=== PATIENT | male | born 1935 | race Two or more races ===

== ENCOUNTER 2020-11-14 11:58 | Inpatient (IN) | payer MEDICARE ==
[~2020-11-14] VITALS: Ht 170.2 cm; Wt 73.9 kg
[2020-11-14 18:08] VITALS: BP 126/66
--- NOTE | 2020-11-14 18:22 | HP ---
ADMIT DATE: 11/14/2020 ATTENDING PHYSICIAN: Dr. Doyle. HISTORY OF PRESENT ILLNESS: We are asked to see this patient for admission to the medical side prior to going to the Senior [facility]. The patient is an 85-year-old gentleman, normally has some appointments at the [facility] in [place]. He is currently in a fpc in [place], [place]. He is demented. He has been having visual hallucinations, seeing faces, agitated, insomnia up in the middle of night, attempting to leave home at times, has underlying dementia with Parkinson's disease. He is admitted to the [facility] Unit for further evaluation. PAST MEDICAL HISTORY: Significant for Parkinson's disease, history of colon cancer resection, hypertension, chronic kidney disease stage 3, gout, benign prostatic hypertrophy, gastroesophageal reflux disease and chronic bronchitis. SOCIAL HISTORY: He had been a smoker in the past. No drinking history. He is retired as a desk job as a fleet manager. ALLERGIES: HE HAS ALLERGIES TO FENTANYL, PERCOCET, METOCLOPRAMIDE AND REQUIP. Exact reactions unclear. He had a second COVID vaccine in October. Family has applied for Medicaid. CURRENT MEDICINES: Include allopurinol, amlodipine, Eliquis 2.5 b.i.d., vitamin D3, Aricept, famotidine, finasteride, Lasix, metoprolol, multivitamin, Flomax and aspirin, p.r.n. Tylenol. FAMILY HISTORY: Unobtainable. REVIEW OF SYSTEMS: Difficult to obtain due to the patient's obtundation. PHYSICAL EXAMINATION: GENERAL: When I saw him, this is a pleasant gentleman that is arousable. He is less obtunded. INITIAL VITAL SIGNS: Showed a blood pressure on the database. He is afebrile. HEENT: Head is without trauma. Pupils are reactive. Sclerae are nonicteric. The oropharynx is clear. NECK: Supple, no bruits. LUNGS: Good breath sounds. CARDIOVASCULAR: Showed regular heart tones. No gallops. ABDOMEN: Soft, no guarding or rebound tenderness. EXTREMITIES: Without edema. NEUROLOGIC: Pleasantly confused, but arousable. Speech is fluent. SKIN: Otherwise warm and dry. We could not assess a full neurologic exam and gait assessment due to the patient's dementia. LABORATORY STUDIES: CBC, chemistry panel and coronavirus swab are pending. ASSESSMENT: 1. An 85-year-old gentleman from [place], [place] slated to go to the Senior Behavior Unit for hallucinations. 2. Underlying dementia. 3. Parkinson's disease. 4. Essential hypertension. 5. Chronic kidney disease. 6. Gout. 7. Gastroesophageal reflux disease. 8. History of colon cancer. PLAN: 1. Admit to the medical unit. 2. Home meds have been reviewed and will be continued. 3. Await laboratory studies and COVID swab. When his COVID swab is available and negative, he can go upstairs to the Senior Behavior Unit. SHAHEEN DOYLE MD DR: ROSS/cristina JOB#: [id number] / [id number] KASSANDRA Bonilla MD
[2020-11-14 18:52] LABS: BASO % 0 % (0-3); EOS # 0.2 x10^3/uL (0.0-0.7); EOS % 4 % (0-3); HEMATOCRIT 31.4 % (39.0-53.0); LYMPH # 0.8 x10^3/uL (1.0-4.8); LYMPH % 17 % (24-48); MEAN CORPUSCULAR HEMOGLOBIN 28 pg (25-35); MEAN CORPUSCULAR HGB CONC 32 g/dL (31-37); MEAN CORPUSCULAR VOLUME 89 fL (79-100); MONO # 0.3 x10^3/uL (0.0-1.1); MONO % 6 % (0-9); NEUT # 3.6 x10^3uL (1.8-7.7); NEUT % 73 % (31-73); PLATELET COUNT 134 x10^3/uL (140-400); RED BLOOD COUNT 3.52 x10^6/uL (4.30-5.70); RED CELL DISTRIBUTION WIDTH 15.5 % (11.5-14.5); WHITE BLOOD COUNT 4.9 x10^3/uL (4.0-11.0)
[2020-11-14 19:06] LABS: CALCIUM 8.3 mg/dL (8.5-10.1); GFR 31.9; POTASSIUM 3.7 mmol/L (3.5-5.1); TOTAL BILIRUBIN 0.4 mg/dL (0.2-1.0); TOTAL PROTEIN 6.1 g/dL (6.4-8.2)
[2020-11-14 20:10] VITALS: BP 127/67
--- NOTE | 2020-11-14 21:20 | EKG ---
[address] [address] Test Date: 2020-11-14 Test Time: 21:15:55 Pat Name: MILAN PENALOZA Department: Room: 107 A Gender: M Arts Manager: : [id number] Requested By: SHAHEEN DOYLE Order Number: [id number] Reading MD: Measurements Intervals [place] Rate: 51 P: 118 KS: 182 QRS: -23 QRSD: 98 T: 0 QT: 456 QTc: 422 Interpretive Statements SINUS RHYTHM LEFTWARD AXIS R-S TRANSITION ZONE IN V LEADS DISPLACED TO THE RIGHT INCOMPLETE RIGHT BUNDLE BRANCH BLOCK QRS(T) CONTOUR ABNORMALITY CONSIDER ANTEROSEPTAL MYOCARDIAL DAMAGE POSSIBLY ABNORMAL ECG RI6.01 No previous ECG available for comparison
--- NOTE | 2020-11-14 23:31 | NUR ---
PT ADMITTED ON PREVIOUS SHIFT TO RM 107 FOR [facility] 48HR HOLD PENDING COVID RESULTS. PT IS RESTING COMFORTABLY IN BED W/ NO COMPLAINTS OF PAIN. PT IS CALM AND COOPERATIVE DURING ASSESSMENT. BED ALARM IS ON WILL CONTINUE TO MONITOR.
[2020-11-15] MEDS ORDERED: VITA1TAB31 PO (00:22)
[2020-11-15] MEDS ORDERED: ROPI1TAB4 PO (00:22)
[2020-11-15] MEDS ORDERED: APIX5TAB5 PO (00:22)
[2020-11-15] MEDS ORDERED: ALLO100T PO (00:22)
[2020-11-15] MEDS ORDERED: TAMS0.4C97 PO (00:22)
[2020-11-15] MEDS ORDERED: AMLO-187 PO (00:22)
[2020-11-15] MEDS ORDERED: MULT-121 PO (00:22)
[2020-11-15] MEDS ORDERED: FAMO-63 PO (00:22)
[2020-11-15] MEDS ORDERED: FINA5TAB4 PO (00:22)
[2020-11-15] MEDS ORDERED: FURO20TA3 PO (00:22)
[2020-11-15] MEDS ORDERED: METO25TA4 PO (00:22)
[2020-11-15] MEDS ORDERED: DONE10TA7 PO (00:22)
[2020-11-15 05:42] VITALS: BP 130/59
[2020-11-15] MEDS: TAMSULOSIN 0.4 MG CAP.ER.24H. PO SCH (08:41)
[2020-11-15] MEDS: DONEPEZIL HCL 10 MG TABLET PO SCH (08:41)
[2020-11-15] MEDS: FINASTERIDE 5 MG TABLET. PO SCH (08:41)
[2020-11-15] MEDS: ALLOPURINOL 100 MG TABLET. PO SCH (08:41)
[2020-11-15] MEDS: FUROSEMIDE 20 MG TABLET PO SCH (08:42)
[2020-11-15] MEDS: MULTIVITAMIN with MINERAL TABLET. PO SCH (08:42)
[2020-11-15] MEDS: rOPINIRole 1 MG TABLET. PO SCH (08:42)
[2020-11-15] MEDS: FAMOTIDINE 20 MG TABLET PO SCH (08:43)
[2020-11-15] MEDS: amLODIPine BESYLATE 10 MG TABLET PO SCH (09:00)
[2020-11-15] MEDS ORDERED: NON FORMULARY ITEM (Vitamin D3/Vitamin K2 (D3 + K2 Dots 1,000 Units Tab) 1 TAB) PO SCH (09:00)
[2020-11-15] MEDS: APIXABAN PO SCH ×2 (09:00→20:25)
[2020-11-15] MEDS: METOPROLOL TART IMMED RELEASE 25 MG TABLET. PO SCH ×2 (09:00→20:25)
[2020-11-15 11:21] VITALS: BP 113/53
--- NOTE | 2020-11-15 11:25 | DS ---
DATE OF DISCHARGE: 11/15/2020 ATTENDING PHYSICIAN: Dr. Doyle. FINAL DISCHARGE DIAGNOSES: 1. An 85-year-old gentleman, retirement resident with dementia and hallucinations. 2. Underlying dementia. 3. Parkinson's disease. 4. Essential hypertension. 5. Chronic kidney disease. 6. History of gout. 7. Gastroesophageal reflux disease. 8. Remote history of colon cancer. HISTORY AND PHYSICAL: The patient is an 85-year-old gentleman at a local retirement in [place], slated to go to the Senior Behavior Unit for adjustment of medication. [facility] also [facility]. He is having increased hallucinations and behavioral issues, very agitated. He was sent here for medical evaluation and COVID screening. PHYSICAL EXAMINATION: Please see the dictated note. PERTINENT LABORATORY AND X-RAY STUDIES: Admission hemoglobin was 10.0 g/dL, white count 4900. Electrolytes: Sodium 147, potassium 3.7 mEq, creatinine is 2.0 mg percent, nonfasting blood sugar 109. He is asymptomatic. Coronavirus swab is almost ready prior to discharge. COURSE IN THE HOSPITAL: The patient was admitted. He had screening lab work, his creatinine is 2.0 mg percent. He is asymptomatic. This will be followed up as an outpatient. Sodium 147 mEq per liter. He was cleared to go to the Senior Behavior Unit. He had no infectious issues. His home meds are unchanged, they include the following: We will continue his allopurinol, amlodipine, Eliquis, Aricept, Pepcid, finasteride, Lasix 20 mg daily, metoprolol, multivitamin, Requip, Flomax, and vitamin D. He was discharged then from our unit in stable condition with explicit instructions and followup care. SHAHEEN DOYLE MD DR: ROSS/cristina JOB#: [id number] / [id number] KASSANDRA Bonilla MD
--- NOTE | 2020-11-15 14:19 | NUR ---
NURSING NOTE THIS NURSE IS TAKING OVER PT CARE, REPORT FROM OVIDIO CLEMONS RN. HEMALATHA COLEY.
[2020-11-15 15:57] VITALS: BP 120/63
[2020-11-15 20:14] VITALS: BP 134/65
[2020-11-15 21:09] LABS: THYROID STIM HORMONE (TSH) 2.573 uIU/mL (0.358-3.740)
[2020-11-15] MEDS: OLANZapine 2.5 MG TABLET PO PRN (22:30)
[2020-11-16] MEDS: OLANZapine 2.5 MG TABLET PO PRN ×3 (01:45→06:13)
--- NOTE | 2020-11-16 02:35 | NUR ---
PT with increased agitation throughout night. PT climbing out of bed, active visual hallucinations, noncompliant at times. Dr. Campbell telephoned for orders. Zyprexa ordered received. Zyprexa given. PT able to sleep 30 minutes at a time with dose.
[2020-11-16 04:11] LABS: BACTERIA,URINE 0 /HPF (0-FEW); BILIRUBIN,URINE NEG (NEG); CLARITY,URINE CLEAR; COLOR,URINE YELLOW; GLUCOSE,URINE NEG (NEG); NITRITE,URINE NEG (NEG); RBC,URINE 0 /HPF (0-2); SQUAMOUS EPITHELIAL CELL,UR OCC /LPF; UROBILINOGEN,URINE 0.2 mg/dL (0.2 mg/dL); WBC,URINE OCC /HPF (0-4)
[2020-11-16 05:48] VITALS: BP 113/65
[2020-11-16] MEDS: MULTIVITAMIN with MINERAL TABLET. PO SCH (07:50)
[2020-11-16] MEDS: rOPINIRole 1 MG TABLET. PO SCH (07:50)
[2020-11-16] MEDS: FINASTERIDE 5 MG TABLET. PO SCH (07:50)
[2020-11-16] MEDS: amLODIPine BESYLATE 10 MG TABLET PO SCH (07:51)
[2020-11-16] MEDS: TAMSULOSIN 0.4 MG CAP.ER.24H. PO SCH (07:51)
[2020-11-16] MEDS: FAMOTIDINE 20 MG TABLET PO SCH (07:51)
[2020-11-16] MEDS: DONEPEZIL HCL 10 MG TABLET PO SCH (07:52)
[2020-11-16] MEDS: FUROSEMIDE 20 MG TABLET PO SCH (07:52)
[2020-11-16] MEDS: ALLOPURINOL 100 MG TABLET. PO SCH (07:52)
[2020-11-16 08:28] VITALS: BP 113/65
[2020-11-16] MEDS: METOPROLOL TART IMMED RELEASE 25 MG TABLET. PO SCH (08:28)
--- NOTE | 2020-11-16 08:36 | NUR ---
COVID TEST IS NEGATIVE PER LAB REPORT. NURSING BIAS BINDING CUTTER NOTIFIED.
[2020-11-16] MEDS ORDERED: CHOLECALCIFEROL (VITAMIN D3) 1,000 UNIT TABLET PO SCH (09:00)
--- NOTE | 2020-11-16 09:50 | NUR ---
PATIENT IS DISCHARGED TO [facility]. REPORT GIVEN TO PORTILLO PENNY. PATIENT LEFT ROOM VIA W/C ACCOMP BY THIS RN.
== END 2020-11-16 09:40 | DRG 641 ==
LOC: 1 SOUTH 16:15
PROVIDERS: ADMIT Hospitalist; ATTEND Hospitalist
DX: E87.0 Hyperosmolality and hypernatremia (principal); F02.81 Dementia in other diseases classified elsewhere, unspecified severity, with behavioral disturbance; G20 Parkinson's disease; I12.9 Hypertensive chronic kidney disease with stage 1 through stage 4 chronic kidney disease, or unspecified chronic kidney disease; G47.00 Insomnia, unspecified; J42 Unspecified chronic bronchitis; K21.9 Gastro-esophageal reflux disease without esophagitis; M10.9 Gout, unspecified; N18.30 Chronic kidney disease, stage 3 unspecified; N40.0 Benign prostatic hyperplasia without lower urinary tract symptoms; Z79.899 Other long term (current) drug therapy; Z85.038 Personal history of other malignant neoplasm of large intestine; Z87.891 Personal history of nicotine dependence; Z88.8 Allergy status to other drugs, medicaments and biological substances
CPT/HCPCS: 36415; 80053; 80061; 81001; 82306; 82607; 83735; 84443; 85025; 85379; 86592; 93005; U0003

== ENCOUNTER 2020-11-16 09:45 | Inpatient (IN) | payer MEDICARE ==
[~2020-11-16] VITALS: Ht 170.2 cm; Wt 66.5 kg
[~2020-11-16 09:45] MED LIST: ALLO100T PO; AMLO-187 PO; APIX5TAB5 PO; DONE10TA7 PO; FAMO-63 PO; FINA5TAB4 PO; FURO20TA3 PO; METO25TA4 PO; MULT-121 PO; ROPI1TAB4 PO; TAMS0.4C97 PO; VITA1TAB31 PO
[2020-11-16 10:13] VITALS: BP 125/68
[2020-11-16] MEDS ORDERED: ACETAMINOPHEN 325 MG TABLET PO PRN (12:15)
[2020-11-16] MEDS ORDERED: MAG HYDROX/AL HYDROX/SIMETH 30 ML ORAL.SUSP PO PRN (12:15)
[2020-11-16] MEDS ORDERED: METHYL SALICYLATE/MENTHOL TOPICAL OINTMENT 57GM TUBE. TP PRN (12:15)
[2020-11-16] MEDS ORDERED: MAGNESIUM HYDROXIDE 2,400 MG/30 ML ORAL.SUSP. PO PRN (12:15)
[2020-11-16 16:08] VITALS: BP 107/71
[2020-11-16] MEDS: APIXABAN 2.5 MG TABLET PO SCH (20:05)
[2020-11-16] MEDS: METOPROLOL TART IMMED RELEASE 25 MG TABLET. PO SCH (20:06)
--- NOTE | 2020-11-16 20:46 | PDOC ---
Exam Note: Chaitanya Note: Please also refer to the separate dictated note~for this date of service dictated separately.~Patient seen individually. Discussed the patient with Nursing staff reviewed the chart.~Reviewed interim history and current functioning. Reviewed vital signs,~Labs/ Radiology~and current medications noted below. Continue current treatment with the changes noted in the dictated addendum note Assessment: Vital Signs/I&O: Vital Signs Date Time Temp Pulse Resp B/P (MAP) Pulse Ox O2 Delivery O2 Flow Rate FiO2 11/16/20 20:06 69 107/71 11/16/20 16:08 97.3 18 96 Room Air Current Medications: Meds: Current Medications Medications (Trade) Dose Ordered Sig/Kwame Route PRN Reason Start Time Stop Time Status Last Admin Dose Admin Metoprolol Tartrate (Lopressor) 37.5 mg BID PO 11/16/20 21:00 11/16/20 20:06 Apixaban (Eliquis) 2.5 mg BID PO 11/16/20 21:00 11/16/20 20:05 I have reviewed the current psychotropics carefully including drug interactions. Risk benefit ratio favors no change other than as noted in my dictated progress note. Diagnosis: Problems: (1) Major neurocognitive disorder KASSANDRA TAMAYO MD Nov 16, 2020 20:46
[2020-11-16] MEDS: traZODone 50 MG TABLET. PO PRN (23:20)
[2020-11-17 06:19] VITALS: BP 124/56
[2020-11-17] MEDS: TAMSULOSIN 0.4 MG CAP.ER.24H. PO SCH ×2 (09:00→11:59)
[2020-11-17] MEDS: METOPROLOL TART IMMED RELEASE 25 MG TABLET. PO SCH ×2 (09:00→20:42)
[2020-11-17] MEDS: rOPINIRole 1 MG TABLET. PO SCH ×2 (09:00→12:00)
[2020-11-17] MEDS: FINASTERIDE 5 MG TABLET. PO SCH ×2 (09:00→11:59)
[2020-11-17] MEDS: amLODIPine BESYLATE 10 MG TABLET PO SCH ×2 (09:00→11:58)
[2020-11-17] MEDS: APIXABAN 2.5 MG TABLET PO SCH ×3 (09:00→20:41)
[2020-11-17] MEDS: DONEPEZIL HCL 10 MG TABLET PO SCH ×2 (09:00→11:59)
[2020-11-17] MEDS: FUROSEMIDE 20 MG TABLET PO SCH ×2 (09:00→11:59)
[2020-11-17] MEDS: FAMOTIDINE 20 MG TABLET PO SCH ×2 (09:00→11:59)
[2020-11-17] MEDS: CHOLECALCIFEROL (VITAMIN D3) 1,000 UNIT TABLET PO SCH ×2 (09:00→11:59)
[2020-11-17] MEDS: MULTIVITAMIN with MINERAL TABLET. PO SCH ×2 (09:00→12:00)
[2020-11-17] MEDS: ALLOPURINOL 100 MG TABLET. PO SCH ×2 (09:00→11:59)
[2020-11-17 16:12] VITALS: BP 147/83
--- NOTE | 2020-11-17 21:26 | PDOC ---
Exam Note: Chaitanya Note: Please also refer to the separate dictated note~for this date of service dictated separately.~Patient seen individually. Discussed the patient with Nursing staff reviewed the chart.~Reviewed interim history and current functioning. Reviewed vital signs,~Labs/ Radiology~and current medications noted below. Continue current treatment with the changes noted in the dictated addendum note Assessment: Vital Signs/I&O: Vital Signs Date Time Temp Pulse Resp B/P (MAP) Pulse Ox O2 Delivery O2 Flow Rate FiO2 11/17/20 20:42 60 147/83 11/17/20 16:12 98.0 18 96 11/17/20 06:19 Room Air I & O 11/16/20 11/16/20 11/17/20 15:00 23:00 07:00 Intake Total 240 ml 720 ml Balance 240 ml 720 ml Current Medications: Meds: Current Medications Medications (Trade) Dose Ordered Sig/Kwame Route PRN Reason Start Time Stop Time Status Last Admin Dose Admin Olanzapine (ZyPREXA ZYDIS) 2.5 mg PRN Q2HR PRN PO PSYCHOSIS 11/16/20 23:00 11/16/20 23:20 Trazodone HCl (Desyrel) 50 mg PRN QHS PRN PO INSOMNIA, MAY REPEAT X1 11/16/20 23:00 11/16/20 23:20 I have reviewed the current psychotropics carefully including drug interactions. Risk benefit ratio favors no change other than as noted in my dictated progress note. Diagnosis: Problems: (1) Major neurocognitive disorder KASSANDRA TAMAYO MD Nov 17, 2020 21:26
[2020-11-17] MEDS: traZODone 50 MG TABLET. PO PRN (21:32)
--- NOTE | 2020-11-17 22:51 | HP ---
ADMIT DATE: 11/17/2020 PSYCHIATRIC ADMISSION HISTORY/EVALUATION This note covers elements not covered in my initial note on 11/17/2020. I met with the patient evening of 11/17/2020 for this evaluation. IDENTIFYING DATA: The patient is an 86-year-old male referred by his primary care physician as he lives at home with his . He has had progressive deterioration in his cognition with visual hallucinations in which he sees faces. He has been agitated, had marked insomnia and getting up during the night and leaves faucet turned on or the refrigerator open. He has been attempting to leave the home. This is within the context of his diagnosis of Parkinson disease and additional diagnosis, possibility of Lewy body dementia versus dementia, vascular with delusion, behavioral disturbance. The patient's behaviors have been deemed dangerous living at home with his . He has failed outpatient psychiatric interventions resulting in this referral. CHIEF COMPLAINT: "No." The patient is seated in a chair, head bent forward, very difficult to understand, has a parkinsonian facial expression. HISTORY OF PRESENT ILLNESS: The patient has a history of progressive dementia, Alzheimer's, vascular and possibly consequent to Parkinson's and Lewy body with active visual hallucinations, agitation, marked insomnia attempting to elope as noted above. No clear history of bipolar disorder, suicidal or homicidal ideation. PAST PSYCHIATRIC HISTORY: As above. MEDICAL HISTORY: Positive for Parkinson disease, history of colon cancer, hypertension, atrial fibrillation, chronic kidney disease stage 3, gout, BPH, GERD, chronic bronchitis, history of DVT, heart disease. ACCU-CHEKS: None. CODE STATUS: DNR. ALLERGIES: FENTANYL, CODEINE, REQUIP, AND METOCLOPRAMIDE. DIET: Cardiac. Ambulates up ad neel. UA 11/14/2020 was negative. CURRENT PSYCHOTROPICS: Aricept 10 mg a day, trazodone 50 mg at bedtime p.r.n., Zyprexa p.r.n. FAMILY HISTORY: Noncontributory. SOCIAL HISTORY: No history of alcohol, drug abuse, physical, sexual or elder abuse. He is not known to be a perpetrator. REACTION TO HOSPITALIZATION: The patient oblivious of this. ASSETS: Supportive family. REVIEW OF SYSTEMS: No CV, , pulmonary, eye, ENT system symptoms on review. Reliability poor. MENTAL STATUS EXAMINATION: Oriented to himself. Insight, judgment, recent and remote memory, attention, concentration, fund of knowledge poor, consistent with his diagnoses. IMPRESSION: Major neurocognitive disorder, multifactorial, possibly vascular, secondary to Parkinson's, Lewy body, Alzheimer's with delusion, depression, behavioral disturbance; anxiety disorder, unspecified; impulse control disorder, unspecified. Rest as above. PLAN: Admit to Geropsychiatry Unit at [facility]. I will see the patient daily individually from a psychiatric standpoint. Medical followup with Dr. Wray/Dr. Cortes. Continue current psychotropics. Observe baseline, consider changing Aricept to Exelon patch given the possibility of Lewy body dementia. Consider SSRIs for his mood and anxiety symptoms. Make further adjustments as clinically indicated. If active psychotic symptoms are noted, may use low dose Seroquel and/or Clozaril. Estimated length of stay 10-12 days. DISPOSITION PLAN: The patient will probably need placement at discharge. KASSANDRA TAMAYO MD DR: LUANN/cristina JOB#: [id number] / [id number]
--- NOTE | 2020-11-17 23:28 | PN ---
DATE: 11/17/2020 PSYCHIATRIC PROGRESS NOTE SUBJECTIVE: The patient was seen on rounds evening of 11/17/2020. Discussed with HEMALATHA Barreto, reviewed the chart. The patient slept 6-1/2 hours previous night. He has been tired and somewhat sedated all day today. He is unable to understand his medications. He is not very verbal at all. REVIEW OF SYSTEMS: No CV, , pulmonary, eye, ENT system symptoms on review. Reliability poor. MENTAL STATUS EXAM: Oriented to himself. Insight, judgment, recent and remote memory, attention, concentration, fund of knowledge poor, consistent with his diagnosis. IMPRESSION: Major neurocognitive disorder, multifactorial, possibly vascular secondary to Parkinson's or Lewy body, Alzheimer's with delusion, depression, behavioral disturbance; anxiety disorder, unspecified; impulse control disorder, unspecified. PLAN: We will go ahead and change the patient's Aricept to Exelon patch 4.6 mg a day for 5 days and 9.5 mg a day thereafter. Consider Seroquel or Clozaril if psychotic symptoms resurface. Continue trazodone at bedtime p.r.n., Zyprexa p.r.n., adjust further as clinically indicated. KASSANDRA TAMAYO MD DR: LUANN/cristina JOB#: [id number] / [id number]
[2020-11-18] MEDS: traZODone 50 MG TABLET. PO PRN ×2 (00:49→19:58)
[2020-11-18] MEDS: TAMSULOSIN 0.4 MG CAP.ER.24H. PO SCH (08:22)
[2020-11-18] MEDS: APIXABAN 2.5 MG TABLET PO SCH ×2 (08:22→19:57)
[2020-11-18] MEDS: ALLOPURINOL 100 MG TABLET. PO SCH (08:22)
[2020-11-18] MEDS: CHOLECALCIFEROL (VITAMIN D3) 1,000 UNIT TABLET PO SCH (08:22)
[2020-11-18] MEDS: MULTIVITAMIN with MINERAL TABLET. PO SCH (08:22)
[2020-11-18] MEDS: FAMOTIDINE 20 MG TABLET PO SCH (08:22)
[2020-11-18] MEDS: FINASTERIDE 5 MG TABLET. PO SCH (08:23)
[2020-11-18] MEDS: rOPINIRole 1 MG TABLET. PO SCH (08:23)
[2020-11-18] MEDS: FUROSEMIDE 20 MG TABLET PO SCH (08:23)
[2020-11-18] MEDS: amLODIPine BESYLATE 10 MG TABLET PO SCH (08:23)
[2020-11-18] MEDS: METOPROLOL TART IMMED RELEASE 25 MG TABLET. PO SCH ×2 (08:23→19:57)
[2020-11-18] MEDS: RIVASTIGMINE 4.6MG PATCH. TD SCH (08:24)
[2020-11-18 16:08] VITALS: BP 101/81
[2020-11-18 19:43] VITALS: BP 125/70
[2020-11-18] MEDS: rOPINIRole 0.5 MG TABLET. PO SCH (19:58)
--- NOTE | 2020-11-18 21:00 | PDOC ---
Exam Note: Chaitanya Note: Please also refer to the separate dictated note~for this date of service dictated separately.~Patient seen individually. Discussed the patient with Nursing staff reviewed the chart.~Reviewed interim history and current functioning. Reviewed vital signs,~Labs/ Radiology~and current medications noted below. Continue current treatment with the changes noted in the dictated addendum note Assessment: Vital Signs/I&O: Vital Signs Date Time Temp Pulse Resp B/P (MAP) Pulse Ox O2 Delivery O2 Flow Rate FiO2 11/18/20 19:57 80 125/70 11/18/20 16:08 97.9 16 97 Room Air I & O 11/17/20 11/17/20 11/18/20 15:00 23:00 07:00 Intake Total 0 ml 480 ml Balance 0 ml 480 ml Current Medications: Meds: Current Medications Medications (Trade) Dose Ordered Sig/Kwame Route PRN Reason Start Time Stop Time Status Last Admin Dose Admin Rivastigmine (Exelon) 1 patch DAILY TD 11/18/20 09:00 11/24/20 21:00 11/18/20 08:24 Ropinirole HCl (Requip) 0.5 mg TID PO 11/18/20 21:00 11/18/20 19:58 I have reviewed the current psychotropics carefully including drug interactions. Risk benefit ratio favors no change other than as noted in my dictated progress note. Diagnosis: Problems: (1) Major neurocognitive disorder due to Parkinson's disease with behavioral di sturbance (2) Dementia in Alzheimer's disease with delusions (3) Dementia in Alzheimer's disease with depression (4) Dementia, vascular, with depression (5) Dementia, vascular, with delusions (6) Anxiety disorder, unspecified (7) Impulse control disorder, unspecified KASSANDRA TAMAYO MD Nov 18, 2020 21:00
--- NOTE | 2020-11-19 00:26 | CONS ---
DATE OF CONSULTATION: 11/18/2020 NEUROLOGY CONSULTATION REFERRING PHYSICIAN: Dr. Campbell. REASON FOR CONSULTATION: Dementia and Parkinson's disease. HISTORY OF PRESENT ILLNESS: This is an 85-year-old right-handed male, has had longstanding history of slowly progressive dementia and a longstanding history of Parkinson's disease. He was admitted on 11/16/2020 on account of progressive deterioration of his mental status and visual hallucinations. The patient had been waking at night and keeping the refrigerator open or leaves the faucet turned on and sometimes had tried to elope. Neuro consult was requested. The patient has tremor of the upper extremities and possible worsening of parkinsonian tremor and possible Lewy body dementia. The patient has had disturbed behavior at home and sometimes he gets agitated. He lives with his at home and his behavior has been deemed dangerous. PAST MEDICAL HISTORY: Significant for atrial fibrillation, chronic kidney disease, colon cancer, Parkinson's disease, hypertension, gout, benign prostate hypertrophy, GERD and DVT along with heart disease. PAST PSYCHIATRIC PROBLEMS: Include dementia and visual hallucinations with intermittent agitation. He denies suicidal ideations. SOCIAL HISTORY: The patient is . He lives with his at home. There is no history of smoking, alcohol drinking, or illicit drug use. CURRENT MEDICATIONS: Exelon patch, vitamin D, calcium, tamsulosin, allopurinol, furosemide, Proscar, famotidine, amlodipine, trazodone, olanzapine p.r.n., Eliquis, metoprolol. ALLERGIES: TYLENOL, FENTANYL, METOCLOPRAMIDE, OXYCODONE. REVIEW OF SYSTEMS: A 12-point review of system was performed as mentioned above in history of present illness. PHYSICAL EXAMINATION: GENERAL: A well-developed, well-nourished male, not in acute distress. He weighs 72.2 kilos. VITAL SIGNS: Blood pressure 147/83, respiratory rate 18, pulse is 60, temperature is 98, oxygen saturation 97% on room air. HEENT: Normocephalic, atraumatic, otherwise unremarkable. NECK: Supple. Negative for carotid bruit, lymphadenopathy or thyromegaly. LUNGS: Clear to A and P. CARDIOVASCULAR: Regular rate and rhythm, normal S1, S2. ABDOMEN: Soft. Bowel sounds positive. EXTREMITIES: Negative for cyanosis, clubbing, or pitting edema. NEUROLOGICAL: The patient is alert to himself. He knows the year, but he does not know the date or the month. He does not name the president of [facility]. Speech is slow. There is no language dysfunction. Memory, judgment, and abstracting thinking are poor. The patient denies hallucination at this time. CRANIAL NERVES: Visual emanuel appear to be intact. The pupils are reactive to light and accommodation. The extraocular movements are intact. There is no nystagmus. There is no facial motor or sensory deficit. Hearing is intact bilaterally. The palate is elevated symmetrically. Sternocleidomastoid muscles are powerful bilaterally. The patient shrugs his shoulders symmetrically and protrudes his tongue in the midline without fasciculation or atrophy. MOTOR EXAMINATION: No focal muscle bulk was seen. The tone is slightly increased in the left upper and lower extremities. The patient has intermittent resting tremor of both hands. He swings his arms when he walks. SENSORY EXAMINATION: Revealed normal pinprick, light touch senses throughout. Deep tendon reflexes were asymmetric and hypoactive with absent Achilles responses. GAIT: The stance is somewhat steady. LABORATORY DATA: CBC revealed white blood cells of 4.9 thousand, hemoglobin 10, hematocrit 31.4, platelet count 134,000. Chemistry revealed sodium of 147, potassium 3.7, chloride 110, CO2 of 27, BUN 33, creatinine 2, glucose 109, calcium 8.3. Lipid profile is normal. Vitamin B12 is normal at 743. Vitamin D is normal at 34.8 with normal TSH. Urinalysis negative for urinary tract infections. D-dimer is normal at 0.45. IMPRESSION: 1. Dementia, possible of Alzheimer type. However, with history of parkinsonism, he might have Lewy body dementia as well. 2. Multiple medical problems include hypertension, history of atrial fibrillation, GERD, gout and deep venous thrombosis. 3. Multiple psychiatric problems including dementia and possible Lewy body type and intermittent visual hallucination and agitation. RECOMMENDATIONS: 1. Continue with current management. 2. Continue with current medical and psychiatric care. 3. Continue with Exelon patch and allopurinol at 1 mg twice daily. M Rin COLE MD DR: SEYMOUR/cristina JOB#: [id number] / [id number]
[2020-11-19] MEDS: traZODone 50 MG TABLET. PO PRN ×2 (01:32→19:48)
[2020-11-19 06:19] VITALS: BP 144/57
--- NOTE | 2020-11-19 08:20 | PDOC ---
Exam Note: Chaitanya Note: This note is a late entry for 11/18/2020 covers elements not covered in my initial note. Subjective: The patient was seen individually in the evening of 11/18/2020 with Salvador PENNY, discussed and reviewed the chart. He slept 5-1/2 hours previous night. Overall the patient has been less confused, ambulating a little better. ReQuip was increased to 0.[address] Greene for his Parkinsons disease and he was walking better. He was quite restless previous night. Review of Systems: No CV, , eye, ENT system symptoms on review. Mental Status Exam: The patient is oriented to himself. Insight and judgment, recent memory is intact. Language function is intact. Attention span is short. Mood and affect lability is improved. Laboratory Data: Reviewed. Impression: Plan: No change from initial note. We may add Zoloft and gradually increase the Exelon patch. Assessment: Vital Signs/I&O: Vital Signs Date Time Temp Pulse Resp B/P (MAP) Pulse Ox O2 Delivery O2 Flow Rate FiO2 11/19/20 06:19 98.1 60 22 144/57 (86) 98 Room Air I & O 11/18/20 11/18/20 11/19/20 15:00 23:00 07:00 Intake Total 600 ml 460 ml Balance 600 ml 460 ml Current Medications: Meds: Current Medications Medications (Trade) Dose Ordered Sig/Kwame Route PRN Reason Start Time Stop Time Status Last Admin Dose Admin Rivastigmine (Exelon) 1 patch DAILY TD 11/18/20 09:00 11/24/20 21:00 11/18/20 08:24 Ropinirole HCl (Requip) 0.5 mg TID PO 11/18/20 21:00 11/18/20 19:58 I have reviewed the current psychotropics carefully including drug interactions. Risk benefit ratio favors no change other than as noted in my dictated progress note. 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
--- NOTE | 2020-11-19 08:23 | PDOC ---
Exam Note: Chaitanya Note: This note is a late entry for 11/18/2020 covers elements not covered in my initial note. Subjective: The patient was seen individually in the evening of 11/18/2020 with Salvador PENNY, discussed and reviewed the chart. He slept 5-1/2 hours previous night. Overall the patient has been less confused, ambulating a little better. ReQuip was increased to 0.[address] Greene for his Parkinsons disease and he was walking better. He was quite restless previous night. Review of Systems: No CV, , eye, ENT system symptoms on review. Mental Status Exam: The patient is oriented to himself. Insight and judgment, recent memory is intact. Language function is intact. Attention span is short. Mood and affect lability is improved. Laboratory Data: Reviewed. 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 Anxiety disorder unspecified. Impulse control disorder unspecified. Plan: No change from initial note. We may add Zoloft and gradually increase the Exelon patch. Assessment: Vital Signs/I&O: Vital Signs Date Time Temp Pulse Resp B/P (MAP) Pulse Ox O2 Delivery O2 Flow Rate FiO2 11/19/20 06:19 98.1 60 22 144/57 (86) 98 Room Air I & O 11/18/20 11/18/20 11/19/20 15:00 23:00 07:00 Intake Total 600 ml 460 ml Balance 600 ml 460 ml Current Medications: Meds: Current Medications Medications (Trade) Dose Ordered Sig/Kwame Route PRN Reason Start Time Stop Time Status Last Admin Dose Admin Acetaminophen (Tylenol) 650 mg PRN Q6HRS PRN PO MILD PAIN / TEMP > 100.3'F 11/16/20 12:15 Multi-Ingredient Ointment (Analgesic [place]) 1 gokul PRN QID PRN TP MUSCLE PAIN 11/16/20 12:15 Al Hydroxide/Mg Hydroxide (Mylanta Plus Xs) 15 ml PRN AFTMEALHC PRN PO DYSPEPSIA 11/16/20 12:15 Magnesium Hydroxide (Milk Of Magnesia) 2,400 mg PRN QHS PRN PO CONSTIPATION 11/16/20 12:15 Allopurinol (Zyloprim) 100 mg DAILY PO 11/17/20 09:00 11/18/20 08:22 Amlodipine Besylate (Norvasc) 10 mg DAILY PO 11/17/20 09:00 11/18/20 08:23 Donepezil HCl (Aricept) 10 mg DAILY PO 11/17/20 09:00 11/17/20 17:57 DC Famotidine (Pepcid) 10 mg DAILY PO 11/17/20 09:00 11/18/20 08:22 Finasteride (Proscar) 5 mg DAILY PO 11/17/20 09:00 11/18/20 08:23 Furosemide (Lasix) 20 mg DAILY PO 11/17/20 09:00 11/18/20 08:23 Metoprolol Tartrate (Lopressor) 37.5 mg BID PO 11/16/20 21:00 11/18/20 19:57 Ropinirole HCl (Requip) 1 mg DAILY PO 11/17/20 09:00 11/18/20 18:19 DC 11/18/20 08:23 Tamsulosin HCl (Flomax) 0.4 mg DAILY PO 11/17/20 09:00 11/18/20 08:22 Apixaban (Eliquis) 2.5 mg BID PO 11/16/20 21:00 11/18/20 19:57 Multivitamins/ Calcium (Thera-M Plus) 1 tab DAILY PO 11/17/20 09:00 11/18/20 08:22 Vitamin D (Vitamin D3) 1,000 unit DAILY PO 11/17/20 09:00 11/18/20 08:22 Olanzapine (ZyPREXA ZYDIS) 2.5 mg PRN Q2HR PRN PO PSYCHOSIS 11/16/20 23:00 11/18/20 17:46 Trazodone HCl (Desyrel) 50 mg PRN QHS PRN PO INSOMNIA, MAY REPEAT X1 11/16/20 23:00 11/19/20 01:32 Rivastigmine (Exelon) 1 patch DAILY TD 11/18/20 09:00 11/24/20 21:00 11/18/20 08:24 Rivastigmine (Exelon) 1 patch DAILY TD 11/25/20 09:00 Ropinirole HCl (Requip) 0.5 mg TID PO 11/18/20 21:00 11/18/20 19:58 Current Medications Medications (Trade) Dose Ordered Sig/Kwame Route PRN Reason Start Time Stop Time Status Last Admin Dose Admin Rivastigmine (Exelon) 1 patch DAILY TD 11/18/20 09:00 11/24/20 21:00 11/18/20 08:24 Ropinirole HCl (Requip) 0.5 mg TID PO 11/18/20 21:00 11/18/20 19:58 I have reviewed the current psychotropics carefully including drug interactions. Risk benefit ratio favors no change other than as noted in my dictated progress note. 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
[2020-11-19] MEDS: rOPINIRole 0.5 MG TABLET. PO SCH ×3 (08:25→19:47)
[2020-11-19] MEDS: ALLOPURINOL 100 MG TABLET. PO SCH (08:25)
[2020-11-19] MEDS: amLODIPine BESYLATE 10 MG TABLET PO SCH (08:25)
[2020-11-19] MEDS: CHOLECALCIFEROL (VITAMIN D3) 1,000 UNIT TABLET PO SCH (08:25)
[2020-11-19] MEDS: RIVASTIGMINE 4.6MG PATCH. TD SCH (08:25)
[2020-11-19] MEDS: METOPROLOL TART IMMED RELEASE 25 MG TABLET. PO SCH ×2 (08:26→19:47)
[2020-11-19] MEDS: FINASTERIDE 5 MG TABLET. PO SCH (08:26)
[2020-11-19] MEDS: TAMSULOSIN 0.4 MG CAP.ER.24H. PO SCH (08:26)
[2020-11-19] MEDS: FAMOTIDINE 20 MG TABLET PO SCH (08:26)
[2020-11-19] MEDS: FUROSEMIDE 20 MG TABLET PO SCH (08:26)
[2020-11-19] MEDS: MULTIVITAMIN with MINERAL TABLET. PO SCH (08:27)
[2020-11-19] MEDS: APIXABAN 2.5 MG TABLET PO SCH ×2 (08:27→19:47)
--- NOTE | 2020-11-19 09:50 | PN ---
DATE: 11/16/2020 ADDENDUM Dictated in the admission psychiatric history and evaluation on the patient and inadvertently dictated that date of service was 11/17/2020 and that this was late entry under dictation #[id number]. In fact dictation #[id number] is a psychiatric evaluation and history for date of service 11/16/2020, dictated as a late entry on 11/17/2020 and this note clarifies this discrepancy. KASSANDRA TAMAYO MD DR: LUANN/cristina JOB#: [id number] / [id number]
[2020-11-19] MEDS: QUEtiapine 25 MG TABLET. PO SCH ×2 (12:16→16:50)
[2020-11-19 16:02] VITALS: BP 92/57
[2020-11-19 19:46] VITALS: BP 139/65
--- NOTE | 2020-11-19 21:16 | PDOC ---
Exam Note: Chaitanya Note: Please also refer to the separate dictated note~for this date of service dictated separately.~Patient seen individually. Discussed the patient with Nursing staff reviewed the chart.~Reviewed interim history and current functioning. Reviewed vital signs,~Labs/ Radiology~and current medications noted below. Continue current treatment with the changes noted in the dictated addendum note Assessment: Vital Signs/I&O: Vital Signs Date Time Temp Pulse Resp B/P (MAP) Pulse Ox O2 Delivery O2 Flow Rate FiO2 11/19/20 19:47 56 139/65 11/19/20 16:02 97.6 18 97 11/19/20 06:19 Room Air I & O 11/18/20 11/18/20 11/19/20 14:59 22:59 06:59 Intake Total 600 ml 460 ml Balance 600 ml 460 ml Current Medications: Meds: Current Medications Medications (Trade) Dose Ordered Sig/Kwame Route PRN Reason Start Time Stop Time Status Last Admin Dose Admin Quetiapine Fumarate (SEROquel) 12.5 mg 0900,1700 PO 11/19/20 12:00 11/19/20 16:50 I have reviewed the current psychotropics carefully including drug interactions. Risk benefit ratio favors no change other than as noted in my dictated progress note. 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
[2020-11-20 06:11] VITALS: BP 127/72
[2020-11-20 06:25] LABS: BASO % 1 % (0-3); EOS # 0.3 x10^3/uL (0.0-0.7); EOS % 6 % (0-3); HEMATOCRIT 34.4 % (39.0-53.0); LYMPH # 1.3 x10^3/uL (1.0-4.8); LYMPH % 25 % (24-48); MEAN CORPUSCULAR HEMOGLOBIN 29 pg (25-35); MEAN CORPUSCULAR HGB CONC 32 g/dL (31-37); MEAN CORPUSCULAR VOLUME 89 fL (79-100); MONO # 0.4 x10^3/uL (0.0-1.1); MONO % 7 % (0-9); NEUT # 3.2 x10^3uL (1.8-7.7); NEUT % 61 % (31-73); PLATELET COUNT 143 x10^3/uL (140-400); RED BLOOD COUNT 3.86 x10^6/uL (4.30-5.70); RED CELL DISTRIBUTION WIDTH 15.3 % (11.5-14.5); WHITE BLOOD COUNT 5.3 x10^3/uL (4.0-11.0)
[2020-11-20 06:39] LABS: ALBUMIN/GLOBULIN RATIO 0.9 (1.0-1.7); CALCIUM 8.6 mg/dL (8.5-10.1); CREATININE 2.5 mg/dL (0.7-1.3); GFR 24.7; POTASSIUM 4.3 mmol/L (3.5-5.1); TOTAL BILIRUBIN 0.4 mg/dL (0.2-1.0); TOTAL PROTEIN 6.3 g/dL (6.4-8.2)
[2020-11-20] MEDS: rOPINIRole 0.5 MG TABLET. PO SCH ×3 (10:26→20:05)
[2020-11-20] MEDS: CHOLECALCIFEROL (VITAMIN D3) 1,000 UNIT TABLET PO SCH (10:27)
[2020-11-20] MEDS: ALLOPURINOL 100 MG TABLET. PO SCH (10:27)
[2020-11-20] MEDS: MULTIVITAMIN with MINERAL TABLET. PO SCH (10:27)
[2020-11-20] MEDS: TAMSULOSIN 0.4 MG CAP.ER.24H. PO SCH (10:27)
[2020-11-20] MEDS: FAMOTIDINE 20 MG TABLET PO SCH (10:27)
[2020-11-20] MEDS: QUEtiapine 25 MG TABLET. PO SCH ×2 (10:27→17:00)
[2020-11-20] MEDS: FINASTERIDE 5 MG TABLET. PO SCH (10:28)
[2020-11-20] MEDS: FUROSEMIDE 20 MG TABLET PO SCH (10:28)
[2020-11-20] MEDS: amLODIPine BESYLATE 10 MG TABLET PO SCH (10:28)
[2020-11-20] MEDS: APIXABAN 2.5 MG TABLET PO SCH ×2 (10:29→20:05)
[2020-11-20] MEDS: METOPROLOL TART IMMED RELEASE 25 MG TABLET. PO SCH ×2 (10:29→20:05)
[2020-11-20] MEDS: RIVASTIGMINE 4.6MG PATCH. TD SCH (10:30)
[2020-11-20 16:13] VITALS: BP 95/60
[2020-11-20] MEDS: traZODone 50 MG TABLET. PO PRN (20:07)
--- NOTE | 2020-11-20 20:54 | PDOC ---
Exam Note: Chaitanya Note: This note is a late entry for 11/19/2020 covers elements not covered in my initial note. Subjective: The patient was reviewed in the morning of 11/19/2020 for a treatment team meeting with Nuria Clifford, Gabbi Rebollar and Laureen (manager social services), Jing, activity therapy and Jeanne PENNY, discussed and reviewed the chart. He slept 4-1/4 hours previous night. Reportedly the patient has had audio-visual hallucinations previous night, aggressive with staff. She was also seen individually in the evening with the nursing staff. She was one-on-one last night due to restlessness, trying to get out of his bed, but better today. Review of Systems: Ambulates with a walker. No CV, , eye, ENT system symptoms on review. Mental Status Exam: The patient is oriented to himself. Insight and judgment, recent and remote memory, attention and concentration, fund of knowledge is poor consistent with his diagnoses. Laboratory Data: Reviewed. 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 Anxiety disorder unspecified. Impulse control disorder unspecified. Plan: Start Seroquel 12.5 mg 9 a.m. and 5 p.m. Continue rest psychotropics unchanged. Assessment: Vital Signs/I&O: Vital Signs Date Time Temp Pulse Resp B/P (MAP) Pulse Ox O2 Delivery O2 Flow Rate FiO2 11/20/20 20:05 46 95/60 11/20/20 16:13 97.5 16 99 11/20/20 06:11 Room Air I & O 11/19/20 11/19/20 11/20/20 15:00 23:00 07:00 Intake Total 440 ml 340 ml Balance 440 ml 340 ml Labs: Laboratory Tests Test 11/20/20 05:55 White Blood Count 5.3 x10^3/uL (4.0-11.0) Red Blood Count 3.86 x10^6/uL (4.30-5.70) L Hemoglobin 11.0 g/dL (13.0-17.5) L Hematocrit 34.4 % (39.0-53.0) L Mean Corpuscular Volume 89 fL (79-100) Mean Corpuscular Hemoglobin 29 pg (25-35) Mean Corpuscular Hemoglobin Concent 32 g/dL (31-37) Red Cell Distribution Width 15.3 % (11.5-14.5) H Platelet Count 143 x10^3/uL (140-400) Neutrophils (%) (Auto) 61 % (31-73) Lymphocytes (%) (Auto) 25 % (24-48) Monocytes (%) (Auto) 7 % (0-9) Eosinophils (%) (Auto) 6 % (0-3) H Basophils (%) (Auto) 1 % (0-3) Neutrophils # (Auto) 3.2 x10^3uL (1.8-7.7) Lymphocytes # (Auto) 1.3 x10^3/uL (1.0-4.8) Monocytes # (Auto) 0.4 x10^3/uL (0.0-1.1) Eosinophils # (Auto) 0.3 x10^3/uL (0.0-0.7) Basophils # (Auto) 0.0 x10^3/uL (0.0-0.2) Sodium Level 151 mmol/L (136-145) H Potassium Level 4.3 mmol/L (3.5-5.1) Chloride Level 114 mmol/L (98-107) H Carbon Dioxide Level 28 mmol/L (21-32) Anion Gap 9 (6-14) Blood Urea Nitrogen 45 mg/dL (8-26) H Creatinine 2.5 mg/dL (0.7-1.3) H Estimated GFR (Cockcroft-Gault) 24.7 BUN/Creatinine Ratio 18 (6-20) Glucose Level 90 mg/dL (70-99) Calcium Level 8.6 mg/dL (8.5-10.1) Total Bilirubin 0.4 mg/dL (0.2-1.0) Aspartate Amino Transferase (AST) 15 U/L (15-37) Alanine Aminotransferase (ALT) 23 U/L (16-63) Alkaline Phosphatase 68 U/L (46-116) Total Protein 6.3 g/dL (6.4-8.2) L Albumin 3.0 g/dL (3.4-5.0) L Albumin/Globulin Ratio 0.9 (1.0-1.7) L Current Medications: Meds: Laboratory Tests Test 11/20/20 05:55 White Blood Count 5.3 x10^3/uL Red Blood Count 3.86 x10^6/uL Hemoglobin 11.0 g/dL Hematocrit 34.4 % Mean Corpuscular Volume 89 fL Mean Corpuscular Hemoglobin 29 pg Mean Corpuscular Hemoglobin Concent 32 g/dL Red Cell Distribution Width 15.3 % Platelet Count 143 x10^3/uL Neutrophils (%) (Auto) 61 % Lymphocytes (%) (Auto) 25 % Monocytes (%) (Auto) 7 % Eosinophils (%) (Auto) 6 % Basophils (%) (Auto) 1 % Neutrophils # (Auto) 3.2 x10^3uL Lymphocytes # (Auto) 1.3 x10^3/uL Monocytes # (Auto) 0.4 x10^3/uL Eosinophils # (Auto) 0.3 x10^3/uL Basophils # (Auto) 0.0 x10^3/uL Sodium Level 151 mmol/L Potassium Level 4.3 mmol/L Chloride Level 114 mmol/L Carbon Dioxide Level 28 mmol/L Anion Gap 9 Blood Urea Nitrogen 45 mg/dL Creatinine 2.5 mg/dL Estimated GFR (Cockcroft-Gault) 24.7 BUN/Creatinine Ratio 18 Glucose Level 90 mg/dL Calcium Level 8.6 mg/dL Total Bilirubin 0.4 mg/dL Aspartate Amino Transf (AST/SGOT) 15 U/L Alanine Aminotransferase (ALT/SGPT) 23 U/L Alkaline Phosphatase 68 U/L Total Protein 6.3 g/dL Albumin 3.0 g/dL Albumin/Globulin Ratio 0.9 Current Medications Medications (Trade) Dose Ordered Sig/Kwame Route PRN Reason Start Time Stop Time Status Last Admin Dose Admin Acetaminophen (Tylenol) 650 mg PRN Q6HRS PRN PO MILD PAIN / TEMP > 100.3'F 11/16/20 12:15 Multi-Ingredient Ointment (Analgesic [place]) 1 gokul PRN QID PRN TP MUSCLE PAIN 11/16/20 12:15 Al Hydroxide/Mg Hydroxide (Mylanta Plus Xs) 15 ml PRN AFTMEALHC PRN PO DYSPEPSIA 11/16/20 12:15 Magnesium Hydroxide (Milk Of Magnesia) 2,400 mg PRN QHS PRN PO CONSTIPATION 11/16/20 12:15 Allopurinol (Zyloprim) 100 mg DAILY PO 11/17/20 09:00 11/20/20 10:27 Amlodipine Besylate (Norvasc) 10 mg DAILY PO 11/17/20 09:00 11/20/20 10:28 Donepezil HCl (Aricept) 10 mg DAILY PO 11/17/20 09:00 11/17/20 17:57 DC Famotidine (Pepcid) 10 mg DAILY PO 11/17/20 09:00 11/20/20 10:27 Finasteride (Proscar) 5 mg DAILY PO 11/17/20 09:00 11/20/20 10:28 Furosemide (Lasix) 20 mg DAILY PO 11/17/20 09:00 11/20/20 10:28 Metoprolol Tartrate (Lopressor) 37.5 mg BID PO 11/16/20 21:00 11/20/20 10:29 Ropinirole HCl (Requip) 1 mg DAILY PO 11/17/20 09:00 11/18/20 18:19 DC 11/18/20 08:23 Tamsulosin HCl (Flomax) 0.4 mg DAILY PO 11/17/20 09:00 11/20/20 10:27 Apixaban (Eliquis) 2.5 mg BID PO 11/16/20 21:00 11/20/20 20:05 Multivitamins/ Calcium (Thera-M Plus) 1 tab DAILY PO 11/17/20 09:00 11/20/20 10:27 Vitamin D (Vitamin D3) 1,000 unit DAILY PO 11/17/20 09:00 11/20/20 10:27 Olanzapine (ZyPREXA ZYDIS) 2.5 mg PRN Q2HR PRN PO PSYCHOSIS 11/16/20 23:00 11/20/20 12:14 Trazodone HCl (Desyrel) 50 mg PRN QHS PRN PO INSOMNIA, MAY REPEAT X1 11/16/20 23:00 11/20/20 20:07 Rivastigmine (Exelon) 1 patch DAILY TD 11/18/20 09:00 11/24/20 21:00 11/20/20 10:30 Rivastigmine (Exelon) 1 patch DAILY TD 11/25/20 09:00 Ropinirole HCl (Requip) 0.5 mg TID PO 11/18/20 21:00 11/20/20 20:05 Quetiapine Fumarate (SEROquel) 12.5 mg 0900,1700 PO 11/19/20 12:00 11/20/20 17:00 I have reviewed the current psychotropics carefully including drug interactions. Risk benefit ratio favors no change other than as noted in my dictated progress note. 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
--- NOTE | 2020-11-20 20:55 | PDOC ---
Exam Note: Chaitanya Note: Please also refer to the separate dictated note~for this date of service dictated separately.~Patient seen individually. Discussed the patient with Nursing staff reviewed the chart.~Reviewed interim history and current functioning. Reviewed vital signs,~Labs/ Radiology~and current medications noted below. Continue current treatment with the changes noted in the dictated addendum note Assessment: Vital Signs/I&O: Vital Signs Date Time Temp Pulse Resp B/P (MAP) Pulse Ox O2 Delivery O2 Flow Rate FiO2 11/20/20 20:05 46 95/60 11/20/20 16:13 97.5 16 99 11/20/20 06:11 Room Air I & O 11/19/20 11/19/20 11/20/20 15:00 23:00 07:00 Intake Total 440 ml 340 ml Balance 440 ml 340 ml Labs: Laboratory Tests Test 11/20/20 05:55 White Blood Count 5.3 x10^3/uL (4.0-11.0) Red Blood Count 3.86 x10^6/uL (4.30-5.70) L Hemoglobin 11.0 g/dL (13.0-17.5) L Hematocrit 34.4 % (39.0-53.0) L Mean Corpuscular Volume 89 fL (79-100) Mean Corpuscular Hemoglobin 29 pg (25-35) Mean Corpuscular Hemoglobin Concent 32 g/dL (31-37) Red Cell Distribution Width 15.3 % (11.5-14.5) H Platelet Count 143 x10^3/uL (140-400) Neutrophils (%) (Auto) 61 % (31-73) Lymphocytes (%) (Auto) 25 % (24-48) Monocytes (%) (Auto) 7 % (0-9) Eosinophils (%) (Auto) 6 % (0-3) H Basophils (%) (Auto) 1 % (0-3) Neutrophils # (Auto) 3.2 x10^3uL (1.8-7.7) Lymphocytes # (Auto) 1.3 x10^3/uL (1.0-4.8) Monocytes # (Auto) 0.4 x10^3/uL (0.0-1.1) Eosinophils # (Auto) 0.3 x10^3/uL (0.0-0.7) Basophils # (Auto) 0.0 x10^3/uL (0.0-0.2) Sodium Level 151 mmol/L (136-145) H Potassium Level 4.3 mmol/L (3.5-5.1) Chloride Level 114 mmol/L (98-107) H Carbon Dioxide Level 28 mmol/L (21-32) Anion Gap 9 (6-14) Blood Urea Nitrogen 45 mg/dL (8-26) H Creatinine 2.5 mg/dL (0.7-1.3) H Estimated GFR (Cockcroft-Gault) 24.7 BUN/Creatinine Ratio 18 (6-20) Glucose Level 90 mg/dL (70-99) Calcium Level 8.6 mg/dL (8.5-10.1) Total Bilirubin 0.4 mg/dL (0.2-1.0) Aspartate Amino Transferase (AST) 15 U/L (15-37) Alanine Aminotransferase (ALT) 23 U/L (16-63) Alkaline Phosphatase 68 U/L (46-116) Total Protein 6.3 g/dL (6.4-8.2) L Albumin 3.0 g/dL (3.4-5.0) L Albumin/Globulin Ratio 0.9 (1.0-1.7) L Current Medications: Meds: Laboratory Tests Test 11/20/20 05:55 White Blood Count 5.3 x10^3/uL Red Blood Count 3.86 x10^6/uL Hemoglobin 11.0 g/dL Hematocrit 34.4 % Mean Corpuscular Volume 89 fL Mean Corpuscular Hemoglobin 29 pg Mean Corpuscular Hemoglobin Concent 32 g/dL Red Cell Distribution Width 15.3 % Platelet Count 143 x10^3/uL Neutrophils (%) (Auto) 61 % Lymphocytes (%) (Auto) 25 % Monocytes (%) (Auto) 7 % Eosinophils (%) (Auto) 6 % Basophils (%) (Auto) 1 % Neutrophils # (Auto) 3.2 x10^3uL Lymphocytes # (Auto) 1.3 x10^3/uL Monocytes # (Auto) 0.4 x10^3/uL Eosinophils # (Auto) 0.3 x10^3/uL Basophils # (Auto) 0.0 x10^3/uL Sodium Level 151 mmol/L Potassium Level 4.3 mmol/L Chloride Level 114 mmol/L Carbon Dioxide Level 28 mmol/L Anion Gap 9 Blood Urea Nitrogen 45 mg/dL Creatinine 2.5 mg/dL Estimated GFR (Cockcroft-Gault) 24.7 BUN/Creatinine Ratio 18 Glucose Level 90 mg/dL Calcium Level 8.6 mg/dL Total Bilirubin 0.4 mg/dL Aspartate Amino Transf (AST/SGOT) 15 U/L Alanine Aminotransferase (ALT/SGPT) 23 U/L Alkaline Phosphatase 68 U/L Total Protein 6.3 g/dL Albumin 3.0 g/dL Albumin/Globulin Ratio 0.9 Current Medications Medications (Trade) Dose Ordered Sig/Kwame Route PRN Reason Start Time Stop Time Status Last Admin Dose Admin Acetaminophen (Tylenol) 650 mg PRN Q6HRS PRN PO MILD PAIN / TEMP > 100.3'F 11/16/20 12:15 Multi-Ingredient Ointment (Analgesic [place]) 1 gokul PRN QID PRN TP MUSCLE PAIN 11/16/20 12:15 Al Hydroxide/Mg Hydroxide (Mylanta Plus Xs) 15 ml PRN AFTMEALHC PRN PO DYSPEPSIA 11/16/20 12:15 Magnesium Hydroxide (Milk Of Magnesia) 2,400 mg PRN QHS PRN PO CONSTIPATION 11/16/20 12:15 Allopurinol (Zyloprim) 100 mg DAILY PO 11/17/20 09:00 11/20/20 10:27 Amlodipine Besylate (Norvasc) 10 mg DAILY PO 11/17/20 09:00 11/20/20 10:28 Donepezil HCl (Aricept) 10 mg DAILY PO 11/17/20 09:00 11/17/20 17:57 DC Famotidine (Pepcid) 10 mg DAILY PO 11/17/20 09:00 11/20/20 10:27 Finasteride (Proscar) 5 mg DAILY PO 11/17/20 09:00 11/20/20 10:28 Furosemide (Lasix) 20 mg DAILY PO 11/17/20 09:00 11/20/20 10:28 Metoprolol Tartrate (Lopressor) 37.5 mg BID PO 11/16/20 21:00 11/20/20 10:29 Ropinirole HCl (Requip) 1 mg DAILY PO 11/17/20 09:00 11/18/20 18:19 DC 11/18/20 08:23 Tamsulosin HCl (Flomax) 0.4 mg DAILY PO 11/17/20 09:00 11/20/20 10:27 Apixaban (Eliquis) 2.5 mg BID PO 11/16/20 21:00 11/20/20 20:05 Multivitamins/ Calcium (Thera-M Plus) 1 tab DAILY PO 11/17/20 09:00 11/20/20 10:27 Vitamin D (Vitamin D3) 1,000 unit DAILY PO 11/17/20 09:00 11/20/20 10:27 Olanzapine (ZyPREXA ZYDIS) 2.5 mg PRN Q2HR PRN PO PSYCHOSIS 11/16/20 23:00 11/20/20 12:14 Trazodone HCl (Desyrel) 50 mg PRN QHS PRN PO INSOMNIA, MAY REPEAT X1 11/16/20 23:00 11/20/20 20:07 Rivastigmine (Exelon) 1 patch DAILY TD 11/18/20 09:00 11/24/20 21:00 11/20/20 10:30 Rivastigmine (Exelon) 1 patch DAILY TD 11/25/20 09:00 Ropinirole HCl (Requip) 0.5 mg TID PO 11/18/20 21:00 11/20/20 20:05 Quetiapine Fumarate (SEROquel) 12.5 mg 0900,1700 PO 11/19/20 12:00 11/20/20 17:00 I have reviewed the current psychotropics carefully including drug interactions. Risk benefit ratio favors no change other than as noted in my dictated progress note. 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
[2020-11-21 06:10] VITALS: BP 166/85
--- NOTE | 2020-11-21 08:05 | PDOC ---
Exam Note: Chaitanya Note: This note is a late entry for 11/20/2020 covers elements not covered in my initial note. Subjective: The patient was seen individually in the evening of 11/20/2020 with Jeanne PENNY, discussed and reviewed the chart. He slept 7-1/4 hours previous night. Apparently the patient has been irritable at times, more confused in the evening but no active hallucinations. This evening as I met with him, he was trying the exit door, anxious, restless, followed me around the unit as I walked on my rounds. Review of Systems: Ambulates with a walker. No CV, , eye, ENT system symptoms on review. Mental Status Exam: The patient is oriented to himself. Insight and judgment, recent and remote memory, attention and concentration, fund of knowledge is poor consistent with his diagnoses. He was somewhat more disorganized this evening than yesterday. Laboratory Data: Reviewed. 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 Anxiety disorder unspecified. Impulse control disorder unspecified. Plan: Continue current psychotropics. Gradually increase the Exelon patch. Maintain Seroquel. He was quite sedated at one point earlier in the day and we will hold the Seroquel if he is sedated. Maintain trazodone and Zyprexa p.r.n. Assessment: Vital Signs/I&O: Vital Signs Date Time Temp Pulse Resp B/P (MAP) Pulse Ox O2 Delivery O2 Flow Rate FiO2 11/21/20 06:10 97.1 96 16 166/85 (112) 96 Room Air I & O 11/20/20 11/20/20 11/21/20 15:00 23:00 07:00 Intake Total 360 ml 480 ml Balance 360 ml 480 ml Current Medications: Meds: Current Medications Medications (Trade) Dose Ordered Sig/Kwame Route PRN Reason Start Time Stop Time Status Last Admin Dose Admin Acetaminophen (Tylenol) 650 mg PRN Q6HRS PRN PO MILD PAIN / TEMP > 100.3'F 11/16/20 12:15 Multi-Ingredient Ointment (Analgesic [place]) 1 gokul PRN QID PRN TP MUSCLE PAIN 11/16/20 12:15 Al Hydroxide/Mg Hydroxide (Mylanta Plus Xs) 15 ml PRN AFTMEALHC PRN PO DYSPEPSIA 11/16/20 12:15 Magnesium Hydroxide (Milk Of Magnesia) 2,400 mg PRN QHS PRN PO CONSTIPATION 11/16/20 12:15 Allopurinol (Zyloprim) 100 mg DAILY PO 11/17/20 09:00 11/20/20 10:27 Amlodipine Besylate (Norvasc) 10 mg DAILY PO 11/17/20 09:00 11/20/20 10:28 Donepezil HCl (Aricept) 10 mg DAILY PO 11/17/20 09:00 11/17/20 17:57 DC Famotidine (Pepcid) 10 mg DAILY PO 11/17/20 09:00 11/20/20 10:27 Finasteride (Proscar) 5 mg DAILY PO 11/17/20 09:00 11/20/20 10:28 Furosemide (Lasix) 20 mg DAILY PO 11/17/20 09:00 11/20/20 10:28 Metoprolol Tartrate (Lopressor) 37.5 mg BID PO 11/16/20 21:00 11/20/20 10:29 Ropinirole HCl (Requip) 1 mg DAILY PO 11/17/20 09:00 11/18/20 18:19 DC 11/18/20 08:23 Tamsulosin HCl (Flomax) 0.4 mg DAILY PO 11/17/20 09:00 11/20/20 10:27 Apixaban (Eliquis) 2.5 mg BID PO 11/16/20 21:00 11/20/20 20:05 Multivitamins/ Calcium (Thera-M Plus) 1 tab DAILY PO 11/17/20 09:00 11/20/20 10:27 Vitamin D (Vitamin D3) 1,000 unit DAILY PO 11/17/20 09:00 11/20/20 10:27 Olanzapine (ZyPREXA ZYDIS) 2.5 mg PRN Q2HR PRN PO PSYCHOSIS 11/16/20 23:00 11/20/20 12:14 Trazodone HCl (Desyrel) 50 mg PRN QHS PRN PO INSOMNIA, MAY REPEAT X1 11/16/20 23:00 11/20/20 20:07 Rivastigmine (Exelon) 1 patch DAILY TD 11/18/20 09:00 11/24/20 21:00 11/20/20 10:30 Rivastigmine (Exelon) 1 patch DAILY TD 11/25/20 09:00 Ropinirole HCl (Requip) 0.5 mg TID PO 11/18/20 21:00 11/20/20 20:05 Quetiapine Fumarate (SEROquel) 12.5 mg 0900,1700 PO 11/19/20 12:00 11/20/20 17:00 I have reviewed the current psychotropics carefully including drug interactions. Risk benefit ratio favors no change other than as noted in my dictated progress note. 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
[2020-11-21] MEDS: RIVASTIGMINE 4.6MG PATCH. TD SCH (09:34)
[2020-11-21] MEDS: CHOLECALCIFEROL (VITAMIN D3) 1,000 UNIT TABLET PO SCH (09:35)
[2020-11-21] MEDS: FAMOTIDINE 20 MG TABLET PO SCH (09:35)
[2020-11-21] MEDS: rOPINIRole 0.5 MG TABLET. PO SCH ×3 (09:35→21:47)
[2020-11-21] MEDS: MULTIVITAMIN with MINERAL TABLET. PO SCH (09:35)
[2020-11-21] MEDS: amLODIPine BESYLATE 10 MG TABLET PO SCH (09:36)
[2020-11-21] MEDS: METOPROLOL TART IMMED RELEASE 25 MG TABLET. PO SCH ×2 (09:36→21:48)
[2020-11-21] MEDS: TAMSULOSIN 0.4 MG CAP.ER.24H. PO SCH (09:37)
[2020-11-21] MEDS: ALLOPURINOL 100 MG TABLET. PO SCH (09:37)
[2020-11-21] MEDS: APIXABAN 2.5 MG TABLET PO SCH ×2 (09:37→21:47)
[2020-11-21] MEDS: QUEtiapine 25 MG TABLET. PO SCH ×2 (09:37→18:08)
[2020-11-21] MEDS: FINASTERIDE 5 MG TABLET. PO SCH (09:37)
[2020-11-21] MEDS: FUROSEMIDE 20 MG TABLET PO SCH (09:37)
--- NOTE | 2020-11-21 14:48 | TX PLAN ---
Interdisciplinary Tx Plan Admission Information Nov 16, 2020 at 09:45 Legal Status (on Admission): Voluntary DPOA/Guardian Name: Pennie Galeas Contact Verified Code Status: DNR Allergies: Coded Allergies: acetaminophen (Verified Allergy, Unknown, 11/14/20) fentanyl (Verified Allergy, Unknown, 11/14/20) metoclopramide (Verified Allergy, Unknown, 11/14/20) oxycodone (Verified Allergy, Unknown, 11/14/20) ropinirole (Verified Allergy, Unknown, 11/14/20) Diagnoses Primary Diagnosis: Major Neurocognitive D/O, vascular Alzheimers with delusions, depression and BD. Reasons for Admission: Agitated, Sig. Change Sleep, Hallucinations, Confusion/ Disoriented, Other Problem in Patient's Words: Increasing behaviors that are not manageable at home. Additional Admission Comments: According to the intake, pt is having visual hallucinations (seeing faces), agitated, insomnia, up in the middle of the night (leaving sink on or the fridge open), attempting to leave home at times. Problems Active Problems: Visual hallucinations, agitated, poor sleep restless, combative Inactive Problems: medication compliance Pt Strengths/Limitations Ability for [place]: Poor Cognitive Functioning/Ability: Poor Communication Skills/Ability: Fair Financial Resources: Fair Insight/Judgement: Poor Intellectual Ability: Fair Physical Health: Poor Social Skills: Poor Stability in Family: Excellent Stability in School/Work: Poor Verbal Skills: Fair Discharge Criteria Discharge Criteria: No need for close observ., Adequate arrangements @DC, Improved behavior, Improved mood/thought Preliminary Discharge Plan Preliminary DC Plan: Placement Needed Special Precautions Fall Risk: Moderate Initial D/C Plan Pt is not able to return home; referrals for placement will be needed. Identified Discharge Needs: Referrals for Memory Care Currently Utilized Resources Currently Utilized Resources/P: Primary Care Physician Referrals Community Resources: Family attempting to get [facility] services Identified Problems/Hx/Goals Objectives/Short-Term Goals Short Term Goals: Dec. Hallucination/Delus, Dec. Outbursts, Medication Stabilization Short Term Goals in Patient's: N/A Interventions/Frequency Staff Interventions/Frequency&: Psychiatrist to assess pt at least 3x per week for medication management Social Work to assess pt at least 2x per week to identify barriers to care and final discharge plans/goals. Nursing to assess medication effects, behavior management and completion of 15 minute checks daily. Encourage participation in group activities (if applicable) or 1:1 engagement based of Activity Dept goals. 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 Education: Pt graduated high school from [place] and attended college at [employer] with a B.S. in Business and minor in Finance. Community Follow-up Primary Care Physician Community Provider/Family Inpu: Getting to be too much for pt to care for at home. Treatment Plan Explained Patient/Guest Relations Coordinator had this treatment plan explained to him/her as indicated by the signature below and has been given the opportunity to ask questions and make suggestions: Date: Patient/Guest Relations Coordinator Signature: Patient/Guest Relations Coordinator Decline: No (Family is very active in pt care.) ESTELA REDD Nov 21, 2020 14:48
[2020-11-21 22:41] VITALS: BP 120/82
--- NOTE | 2020-11-21 22:42 | PDOC ---
Exam Note: Chaitanya Note: Please also refer to the separate dictated note~for this date of service dictated separately.~Patient seen individually. Discussed the patient with Nursing staff reviewed the chart.~Reviewed interim history and current functioning. Reviewed vital signs,~Labs/ Radiology~and current medications noted below. Continue current treatment with the changes noted in the dictated addendum note Assessment: Vital Signs/I&O: Vital Signs Date Time Temp Pulse Resp B/P (MAP) Pulse Ox O2 Delivery O2 Flow Rate FiO2 11/21/20 21:48 54 120/82 11/21/20 06:10 97.1 16 96 Room Air I & O 11/20/20 11/20/20 11/21/20 15:00 23:00 07:00 Intake Total 360 ml 480 ml Balance 360 ml 480 ml Current Medications: Meds: Current Medications Medications (Trade) Dose Ordered Sig/Kwame Route PRN Reason Start Time Stop Time Status Last Admin Dose Admin Acetaminophen (Tylenol) 650 mg PRN Q6HRS PRN PO MILD PAIN / TEMP > 100.3'F 11/16/20 12:15 Multi-Ingredient Ointment (Analgesic [place]) 1 gokul PRN QID PRN TP MUSCLE PAIN 11/16/20 12:15 Al Hydroxide/Mg Hydroxide (Mylanta Plus Xs) 15 ml PRN AFTMEALHC PRN PO DYSPEPSIA 11/16/20 12:15 Magnesium Hydroxide (Milk Of Magnesia) 2,400 mg PRN QHS PRN PO CONSTIPATION 11/16/20 12:15 Allopurinol (Zyloprim) 100 mg DAILY PO 11/17/20 09:00 11/21/20 09:37 Amlodipine Besylate (Norvasc) 10 mg DAILY PO 11/17/20 09:00 11/21/20 09:36 Donepezil HCl (Aricept) 10 mg DAILY PO 11/17/20 09:00 11/17/20 17:57 DC Famotidine (Pepcid) 10 mg DAILY PO 11/17/20 09:00 11/21/20 09:35 Finasteride (Proscar) 5 mg DAILY PO 11/17/20 09:00 11/21/20 09:37 Furosemide (Lasix) 20 mg DAILY PO 11/17/20 09:00 11/21/20 17:08 DC 11/21/20 09:37 Metoprolol Tartrate (Lopressor) 37.5 mg BID PO 11/16/20 21:00 11/21/20 21:48 Ropinirole HCl (Requip) 1 mg DAILY PO 11/17/20 09:00 11/18/20 18:19 DC 11/18/20 08:23 Tamsulosin HCl (Flomax) 0.4 mg DAILY PO 11/17/20 09:00 11/21/20 09:37 Apixaban (Eliquis) 2.5 mg BID PO 11/16/20 21:00 11/21/20 21:47 Multivitamins/ Calcium (Thera-M Plus) 1 tab DAILY PO 11/17/20 09:00 11/21/20 09:35 Vitamin D (Vitamin D3) 1,000 unit DAILY PO 11/17/20 09:00 11/21/20 09:35 Olanzapine (ZyPREXA ZYDIS) 2.5 mg PRN Q2HR PRN PO PSYCHOSIS 11/16/20 23:00 11/20/20 12:14 Trazodone HCl (Desyrel) 50 mg PRN QHS PRN PO INSOMNIA, MAY REPEAT X1 11/16/20 23:00 11/20/20 20:07 Rivastigmine (Exelon) 1 patch DAILY TD 11/18/20 09:00 11/24/20 21:00 11/21/20 09:34 Rivastigmine (Exelon) 1 patch DAILY TD 11/25/20 09:00 Ropinirole HCl (Requip) 0.5 mg TID PO 11/18/20 21:00 11/21/20 21:47 Quetiapine Fumarate (SEROquel) 12.5 mg 0900,1700 PO 11/19/20 12:00 11/21/20 18:08 Sertraline HCl (Zoloft) 25 mg DAILY PO 11/22/20 09:00 11/24/20 21:00 Sertraline HCl (Zoloft) 50 mg DAILY PO 11/25/20 08:00 I have reviewed the current psychotropics carefully including drug interactions. Risk benefit ratio favors no change other than as noted in my dictated progress note. 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
--- NOTE | 2020-11-21 23:53 | PN ---
DATE: 11/21/2020 SUBJECTIVE: The patient is an 85-year-old male patient whom I have seen today at the nursing staff request as his serum sodium was high at 151 mEq per liter. The patient himself is extremely demented, does not give any useful information; however, looking at his lab work, his BUN and creatinine are elevated and actually are higher yesterday than when he was [place] [facility]. His sodium was 147, now 151, creatinine was 2. INR was 2.5. Looking at his medications, he is on furosemide 20 mg once a day. PHYSICAL EXAMINATION: GENERAL: When I examined him this afternoon, he looked well and was clearly in no apparent respiratory distress. No pallor, jaundice, cyanosis from thyromegaly. No jugular venous distension. No limb edema. VITAL SIGNS: Her heart rate was 96, blood pressure 166/85, temperature 97.1, respiratory rate was 16, and oxygen saturation was 96% on room air. HEAD, EYES, EARS, NOSE AND THROAT: Showed normocephalic, atraumatic. NECK: Supple. HEART: Showed normal first and second heart sounds. No gallop, rub or murmur. CHEST: Clear to auscultation. No crepitation or rhonchi. ABDOMEN: Distended, soft, nontender. NEUROLOGIC: He is demented, but without any obvious lateralizing sign. LABORATORY DATA: As of yesterday, his white cell count was 5300, hemoglobin 11, hematocrit 34, MCV 89 and platelet count of 143,000 with normal manual differential. Serum sodium was 151, potassium 4.3, chloride 114, bicarbonate 28, anion gap of 9, BUN 45, creatinine 2.5, estimated GFR was 24 mL per minute. His glucose was 90, calcium was 8.6. Total bilirubin, AST, ALT, alkaline phosphatase were normal. Total protein 6.3, albumin 3. ASSESSMENT: 1. Severe hypernatremia. 2. Acute on chronic kidney injury. Looking at all his medications, he is on furosemide, so I discontinued that. He is not on any other nephrotoxic medication. We will encourage fluid intake and we will also arrange for the bladder scanning to make sure that there is no bladder outlet obstruction as he is already on tamsulosin as well as finasteride. SHILPA KHALIL MD DR: SANDI/cristina JOB#: [id number] / [id number]
[2020-11-22 05:34] VITALS: BP 133/72
[2020-11-22] MEDS: rOPINIRole 0.5 MG TABLET. PO SCH ×3 (07:17→19:39)
[2020-11-22] MEDS: CHOLECALCIFEROL (VITAMIN D3) 1,000 UNIT TABLET PO SCH (07:17)
[2020-11-22] MEDS: MULTIVITAMIN with MINERAL TABLET. PO SCH (07:17)
[2020-11-22] MEDS: FINASTERIDE 5 MG TABLET. PO SCH (07:17)
[2020-11-22] MEDS: TAMSULOSIN 0.4 MG CAP.ER.24H. PO SCH (07:17)
[2020-11-22] MEDS: RIVASTIGMINE 4.6MG PATCH. TD SCH (07:17)
[2020-11-22] MEDS: FAMOTIDINE 20 MG TABLET PO SCH (07:17)
[2020-11-22] MEDS: ALLOPURINOL 100 MG TABLET. PO SCH (07:18)
[2020-11-22] MEDS: SERTRALINE 25 MG TABLET. PO SCH (07:18)
[2020-11-22] MEDS: QUEtiapine 25 MG TABLET. PO SCH ×3 (07:18→17:00)
[2020-11-22] MEDS: APIXABAN 2.5 MG TABLET PO SCH ×2 (07:18→19:39)
[2020-11-22] MEDS: amLODIPine BESYLATE 10 MG TABLET PO SCH (07:19)
[2020-11-22] MEDS: METOPROLOL TART IMMED RELEASE 25 MG TABLET. PO SCH ×2 (07:19→19:38)
--- NOTE | 2020-11-22 07:55 | PDOC ---
Exam Note: Chaitanya Note: This note is a late entry for 11/21/2020 covers elements not covered in my initial note. Subjective: The patient was seen individually in the evening of 11/21/2020 with Cintia PENNY, discussed and reviewed the chart. He slept 6-1/2 hours previous night. The patient remains confused, somewhat appropriate. He seemed to have some occasional hallucinations. Previous night he remained confused, anxious, depressed. Review of Systems: Ambulates with a walker. No CV, , pulmonary, eye, ENT system symptoms on review. Mental Status Exam: The patient is oriented to himself and situation. Speech moderate latency. Often response is monosyllabic. Abstraction is fair. Computation impaired. Language function is intact. Mood and affect somewhat withdrawn. Laboratory Data: Reviewed. 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 Anxiety disorder unspecified. Impulse control disorder unspecified. Plan: Start Zoloft 25 mg a day for 3 days, then 50 mg a day. Continue rest of the psychotropics unchanged. Assessment: Vital Signs/I&O: Vital Signs Date Time Temp Pulse Resp B/P (MAP) Pulse Ox O2 Delivery O2 Flow Rate FiO2 11/22/20 07:19 60 133/72 11/22/20 05:34 96.8 18 94 Room Air I & O 11/21/20 11/21/20 11/22/20 15:00 23:00 07:00 Intake Total 600 ml 570 ml Balance 600 ml 570 ml Current Medications: Meds: Current Medications Medications (Trade) Dose Ordered Sig/Kwame Route PRN Reason Start Time Stop Time Status Last Admin Dose Admin Acetaminophen (Tylenol) 650 mg PRN Q6HRS PRN PO MILD PAIN / TEMP > 100.3'F 11/16/20 12:15 Multi-Ingredient Ointment (Analgesic [place]) 1 gokul PRN QID PRN TP MUSCLE PAIN 11/16/20 12:15 Al Hydroxide/Mg Hydroxide (Mylanta Plus Xs) 15 ml PRN AFTMEALHC PRN PO DYSPEPSIA 11/16/20 12:15 Magnesium Hydroxide (Milk Of Magnesia) 2,400 mg PRN QHS PRN PO CONSTIPATION 11/16/20 12:15 Allopurinol (Zyloprim) 100 mg DAILY PO 11/17/20 09:00 11/22/20 07:18 Amlodipine Besylate (Norvasc) 10 mg DAILY PO 11/17/20 09:00 11/22/20 07:19 Donepezil HCl (Aricept) 10 mg DAILY PO 11/17/20 09:00 11/17/20 17:57 DC Famotidine (Pepcid) 10 mg DAILY PO 11/17/20 09:00 11/22/20 07:17 Finasteride (Proscar) 5 mg DAILY PO 11/17/20 09:00 11/22/20 07:17 Furosemide (Lasix) 20 mg DAILY PO 11/17/20 09:00 11/21/20 17:08 DC 11/21/20 09:37 Metoprolol Tartrate (Lopressor) 37.5 mg BID PO 11/16/20 21:00 11/22/20 07:19 Ropinirole HCl (Requip) 1 mg DAILY PO 11/17/20 09:00 11/18/20 18:19 DC 11/18/20 08:23 Tamsulosin HCl (Flomax) 0.4 mg DAILY PO 11/17/20 09:00 11/22/20 07:17 Apixaban (Eliquis) 2.5 mg BID PO 11/16/20 21:00 11/22/20 07:18 Multivitamins/ Calcium (Thera-M Plus) 1 tab DAILY PO 11/17/20 09:00 11/22/20 07:17 Vitamin D (Vitamin D3) 1,000 unit DAILY PO 11/17/20 09:00 11/22/20 07:17 Olanzapine (ZyPREXA ZYDIS) 2.5 mg PRN Q2HR PRN PO PSYCHOSIS 11/16/20 23:00 11/20/20 12:14 Trazodone HCl (Desyrel) 50 mg PRN QHS PRN PO INSOMNIA, MAY REPEAT X1 11/16/20 23:00 11/20/20 20:07 Rivastigmine (Exelon) 1 patch DAILY TD 11/18/20 09:00 11/24/20 21:00 11/22/20 07:17 Rivastigmine (Exelon) 1 patch DAILY TD 11/25/20 09:00 Ropinirole HCl (Requip) 0.5 mg TID PO 11/18/20 21:00 11/22/20 07:17 Quetiapine Fumarate (SEROquel) 12.5 mg 0900,1700 PO 11/19/20 12:00 11/22/20 07:18 Sertraline HCl (Zoloft) 25 mg DAILY PO 11/22/20 09:00 11/24/20 21:00 11/22/20 07:18 Sertraline HCl (Zoloft) 50 mg DAILY PO 11/25/20 08:00 Current Medications Medications (Trade) Dose Ordered Sig/Kwame Route PRN Reason Start Time Stop Time Status Last Admin Dose Admin Sertraline HCl (Zoloft) 25 mg DAILY PO 11/22/20 09:00 11/24/20 21:00 11/22/20 07:18 I have reviewed the current psychotropics carefully including drug interactions. Risk benefit ratio favors no change other than as noted in my dictated progress note. 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
[2020-11-22 16:18] VITALS: BP 144/76
[2020-11-22] MEDS: MIRTAZAPINE 7.5 MG TABLET. PO SCH (19:41)
--- NOTE | 2020-11-22 20:56 | PDOC ---
Exam Note: Chaitanya Note: Please also refer to the separate dictated note~for this date of service dictated separately.~Patient seen individually. Discussed the patient with Nursing staff reviewed the chart.~Reviewed interim history and current functioning. Reviewed vital signs,~Labs/ Radiology~and current medications noted below. Continue current treatment with the changes noted in the dictated addendum note Assessment: Vital Signs/I&O: Vital Signs Date Time Temp Pulse Resp B/P (MAP) Pulse Ox O2 Delivery O2 Flow Rate FiO2 11/22/20 19:38 63 144/76 11/22/20 16:18 98.4 18 98 11/22/20 05:34 Room Air I & O 11/21/20 11/21/20 11/22/20 15:00 23:00 07:00 Intake Total 600 ml 570 ml Balance 600 ml 570 ml Current Medications: Meds: Current Medications Medications (Trade) Dose Ordered Sig/Kwame Route PRN Reason Start Time Stop Time Status Last Admin Dose Admin Sertraline HCl (Zoloft) 25 mg DAILY PO 11/22/20 09:00 11/24/20 21:00 11/22/20 07:18 Mirtazapine (Remeron) 7.5 mg QHS PO 11/22/20 21:00 11/22/20 19:41 I have reviewed the current psychotropics carefully including drug interactions. Risk benefit ratio favors no change other than as noted in my dictated progress note. 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
[2020-11-23 05:58] VITALS: BP 131/77
--- NOTE | 2020-11-23 08:14 | PDOC ---
Exam Note: Chaitanya Note: This note is a late entry for 11/22/2020 covers elements not covered in my initial note. Subjective: The patient was seen individually in the evening of 11/22/2020 with Cintia PENNY, discussed and reviewed the chart. He slept just 3/4 hours previous night. He is restless at night, compliant with medications, somewhat dehydrated. Sodium is 141. We will defer to Dr. Wray who stopped the Lasix and we are encouraging oral fluids. The patient did have a fall this evening. No injuries noted. He is compliant with medications. Review of Systems: Ambulates with a walker. No CV, , pulmonary, eye, ENT system symptoms on review. Mental Status Exam: The patient is oriented to himself and situation. He is pleasant, verbal, interactive. Speech moderate latency. Often response is monosyllabic. Abstraction is fair. Computation impaired. Language function is intact. Mood and affect somewhat withdrawn. No suicidal or homicidal ideation. Laboratory Data: Reviewed. 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 Anxiety disorder unspecified. Impulse control disorder unspecified. Plan: Start Remeron 7.5 mg h.s. to help his insomnia. Continue rest of the psychotropics unchanged. Assessment: Vital Signs/I&O: Vital Signs Date Time Temp Pulse Resp B/P (MAP) Pulse Ox O2 Delivery O2 Flow Rate FiO2 11/23/20 05:58 97.6 72 20 131/77 (95) 94 Room Air I & O 11/22/20 11/22/20 11/23/20 15:00 23:00 07:00 Intake Total 360 ml 120 ml Balance 360 ml 120 ml Current Medications: Meds: Current Medications Medications (Trade) Dose Ordered Sig/Kwame Route PRN Reason Start Time Stop Time Status Last Admin Dose Admin Sertraline HCl (Zoloft) 25 mg DAILY PO 11/22/20 09:00 11/24/20 21:00 11/22/20 07:18 Mirtazapine (Remeron) 7.5 mg QHS PO 11/22/20 21:00 11/22/20 19:41 I have reviewed the current psychotropics carefully including drug interactions. Risk benefit ratio favors no change other than as noted in my dictated progress note. 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
[2020-11-23] MEDS: CHOLECALCIFEROL (VITAMIN D3) 1,000 UNIT TABLET PO SCH (10:07)
[2020-11-23] MEDS: MULTIVITAMIN with MINERAL TABLET. PO SCH (10:07)
[2020-11-23] MEDS: rOPINIRole 0.5 MG TABLET. PO SCH ×3 (10:07→20:36)
[2020-11-23] MEDS: FINASTERIDE 5 MG TABLET. PO SCH (10:07)
[2020-11-23] MEDS: FAMOTIDINE 20 MG TABLET PO SCH (10:08)
[2020-11-23] MEDS: METOPROLOL TART IMMED RELEASE 25 MG TABLET. PO SCH ×2 (10:08→20:36)
[2020-11-23] MEDS: ALLOPURINOL 100 MG TABLET. PO SCH (10:09)
[2020-11-23] MEDS: amLODIPine BESYLATE 10 MG TABLET PO SCH (10:09)
[2020-11-23] MEDS: RIVASTIGMINE 4.6MG PATCH. TD SCH (10:09)
[2020-11-23] MEDS: QUEtiapine 25 MG TABLET. PO SCH ×3 (10:09→20:45)
[2020-11-23] MEDS: SERTRALINE 25 MG TABLET. PO SCH (10:09)
[2020-11-23] MEDS: APIXABAN 2.5 MG TABLET PO SCH ×2 (10:09→20:38)
[2020-11-23] MEDS: TAMSULOSIN 0.4 MG CAP.ER.24H. PO SCH (10:09)
[2020-11-23 15:29] VITALS: BP 108/65
[2020-11-23] MEDS: MIRTAZAPINE 7.5 MG TABLET. PO SCH (20:38)
[2020-11-23] MEDS: traZODone 50 MG TABLET. PO PRN ×2 (20:45→23:44)
--- NOTE | 2020-11-23 21:02 | PDOC ---
Exam Note: Chaitanya Note: Please also refer to the separate dictated note~for this date of service dictated separately.~Patient seen individually. Discussed the patient with Nursing staff reviewed the chart.~Reviewed interim history and current functioning. Reviewed vital signs,~Labs/ Radiology~and current medications noted below. Continue current treatment with the changes noted in the dictated addendum note Assessment: Vital Signs/I&O: Vital Signs Date Time Temp Pulse Resp B/P (MAP) Pulse Ox O2 Delivery O2 Flow Rate FiO2 11/23/20 20:36 94 108/65 11/23/20 15:29 97.3 19 93 Room Air I & O 11/22/20 11/22/20 11/23/20 14:59 22:59 06:59 Intake Total 360 ml 120 ml Balance 360 ml 120 ml Current Medications: Meds: Current Medications Medications (Trade) Dose Ordered Sig/Kwame Route PRN Reason Start Time Stop Time Status Last Admin Dose Admin Quetiapine Fumarate (SEROquel) 12.5 mg 0900,1300,1700,2100 PO 11/23/20 21:00 11/23/20 20:45 I have reviewed the current psychotropics carefully including drug interactions. Risk benefit ratio favors no change other than as noted in my dictated progress note. 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
[2020-11-24] MEDS: FAMOTIDINE 20 MG TABLET PO SCH (08:31)
[2020-11-24] MEDS: CHOLECALCIFEROL (VITAMIN D3) 1,000 UNIT TABLET PO SCH (08:31)
[2020-11-24] MEDS: amLODIPine BESYLATE 10 MG TABLET PO SCH (08:31)
[2020-11-24] MEDS: APIXABAN 2.5 MG TABLET PO SCH ×2 (08:31→19:44)
[2020-11-24] MEDS: ALLOPURINOL 100 MG TABLET. PO SCH (08:31)
[2020-11-24] MEDS: TAMSULOSIN 0.4 MG CAP.ER.24H. PO SCH (08:31)
[2020-11-24] MEDS: MULTIVITAMIN with MINERAL TABLET. PO SCH (08:31)
[2020-11-24] MEDS: RIVASTIGMINE 4.6MG PATCH. TD SCH (08:31)
[2020-11-24] MEDS: FINASTERIDE 5 MG TABLET. PO SCH (08:31)
[2020-11-24] MEDS: SERTRALINE 25 MG TABLET. PO SCH (08:31)
[2020-11-24] MEDS: QUEtiapine 25 MG TABLET. PO SCH ×4 (08:31→19:44)
[2020-11-24] MEDS: rOPINIRole 0.5 MG TABLET. PO SCH ×3 (08:31→19:42)
[2020-11-24] MEDS: METOPROLOL TART IMMED RELEASE 25 MG TABLET. PO SCH ×2 (08:32→19:43)
[2020-11-24 10:07] LABS: CALCIUM 8.6 mg/dL (8.5-10.1); CREATININE 3.2 mg/dL (0.7-1.3); GFR 18.6; POTASSIUM 3.6 mmol/L (3.5-5.1)
[2020-11-24 15:55] VITALS: BP 101/68
[2020-11-24] MEDS: MIRTAZAPINE 7.5 MG TABLET. PO SCH (19:44)
[2020-11-24] MEDS: traZODone 50 MG TABLET. PO PRN (19:45)
--- NOTE | 2020-11-24 20:51 | PDOC ---
Exam Note: Chaitanya Note: Please also refer to the separate dictated note~for this date of service dictated separately.~Patient seen individually. Discussed the patient with Nursing staff reviewed the chart.~Reviewed interim history and current functioning. Reviewed vital signs,~Labs/ Radiology~and current medications noted below. Continue current treatment with the changes noted in the dictated addendum note Assessment: Vital Signs/I&O: Vital Signs Date Time Temp Pulse Resp B/P (MAP) Pulse Ox O2 Delivery O2 Flow Rate FiO2 11/24/20 19:43 69 101/68 11/24/20 15:55 98.0 18 97 Room Air I & O 11/23/20 11/23/20 11/24/20 15:00 23:00 07:00 Intake Total 0 ml 480 ml Balance 0 ml 480 ml Labs: Laboratory Tests Test 11/24/20 09:45 Sodium Level 145 mmol/L (136-145) Potassium Level 3.6 mmol/L (3.5-5.1) Chloride Level 109 mmol/L (98-107) H Carbon Dioxide Level 28 mmol/L (21-32) Anion Gap 8 (6-14) Blood Urea Nitrogen 52 mg/dL (8-26) H Creatinine 3.2 mg/dL (0.7-1.3) H Estimated GFR (Cockcroft-Gault) 18.6 Glucose Level 93 mg/dL (70-99) Calcium Level 8.6 mg/dL (8.5-10.1) Current Medications: Meds: Current Medications Medications (Trade) Dose Ordered Sig/Kwame Route PRN Reason Start Time Stop Time Status Last Admin Dose Admin Quetiapine Fumarate (SEROquel) 12.5 mg 0900,1300,1700,2100 PO 11/23/20 21:00 11/24/20 19:44 I have reviewed the current psychotropics carefully including drug interactions. Risk benefit ratio favors no change other than as noted in my dictated progress note. 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
[2020-11-25 06:15] VITALS: BP 104/58
[2020-11-25] MEDS: RIVASTIGMINE 9.5MG PATCH. TD SCH (08:20)
[2020-11-25] MEDS: APIXABAN 2.5 MG TABLET PO SCH ×2 (08:20→19:57)
[2020-11-25] MEDS: TAMSULOSIN 0.4 MG CAP.ER.24H. PO SCH (08:20)
[2020-11-25] MEDS: ALLOPURINOL 100 MG TABLET. PO SCH (08:21)
[2020-11-25] MEDS: METOPROLOL TART IMMED RELEASE 25 MG TABLET. PO SCH ×3 (08:21→21:00)
[2020-11-25] MEDS: MULTIVITAMIN with MINERAL TABLET. PO SCH (08:21)
[2020-11-25] MEDS: CETIRIZINE HCL 10 MG TABLET PO SCH (08:21)
[2020-11-25] MEDS: amLODIPine BESYLATE 10 MG TABLET PO SCH (08:21)
[2020-11-25] MEDS: SERTRALINE 50 MG TABLET. PO SCH ×2 (08:22→08:23)
[2020-11-25] MEDS: QUEtiapine 25 MG TABLET. PO SCH ×4 (08:22→19:57)
[2020-11-25] MEDS: FLUTICASONE 50MCG/NASAL SPRAY 16GM BOTTLE. NS SCH (08:22)
[2020-11-25] MEDS: FINASTERIDE 5 MG TABLET. PO SCH (08:22)
[2020-11-25] MEDS: rOPINIRole 0.5 MG TABLET. PO SCH ×3 (08:22→19:57)
[2020-11-25] MEDS: FAMOTIDINE 20 MG TABLET PO SCH (08:22)
[2020-11-25] MEDS: CHOLECALCIFEROL (VITAMIN D3) 1,000 UNIT TABLET PO SCH (08:23)
--- NOTE | 2020-11-25 08:23 | PDOC ---
Exam Note: Chaitanya Note: This note is a late entry for 11/23/2020 covers elements not covered in my initial note. Subjective: The patient was seen individually in the evening of 11/23/2020 with Cintia PENNY, discussed and reviewed the chart. He slept just 7 hours previous night. Remeron 7.5 mg h.s. seemed to help with this. He is compliant with the morning medications. He had a bowel movement in his pants in the afternoon. Later he was agitated, paranoid, hitting, kicking staff. It took 3 CNAs to change him after his incontinence. Received Zyprexa p.r.n., grabbing the arm of nursing staff, had to be placed in the West hallway to reduce stimuli. Review of Systems: Positive for impaired ambulation consequent to Parkinsons. No CV, , pulmonary, eye, ENT system symptoms on review. Reliability poor. Mental Status Exam: The patient is oriented to himself. Insight and judgment, recent and remote memory, attention and concentration, fund of knowledge is poor consistent with his diagnoses. Laboratory Data: Reviewed. 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 Anxiety disorder unspecified. Impulse control disorder unspecified. Plan: Increase Seroquel from 12.5 mg b.i.d. to 12.5 mg 9 a.m., 1 p.m., 5 p.m. and 9 p.m. Rest unchanged for now. Reviewed possible drug interactions. Assessment: Vital Signs/I&O: Vital Signs Date Time Temp Pulse Resp B/P (MAP) Pulse Ox O2 Delivery O2 Flow Rate FiO2 11/25/20 06:15 97.3 55 16 104/58 (73) 96 11/24/20 15:55 Room Air I & O 11/24/20 11/24/20 11/25/20 15:00 23:00 07:00 Intake Total 720 ml 360 ml Balance 720 ml 360 ml Labs: Laboratory Tests Test 11/24/20 09:45 Sodium Level 145 mmol/L (136-145) Potassium Level 3.6 mmol/L (3.5-5.1) Chloride Level 109 mmol/L (98-107) H Carbon Dioxide Level 28 mmol/L (21-32) Anion Gap 8 (6-14) Blood Urea Nitrogen 52 mg/dL (8-26) H Creatinine 3.2 mg/dL (0.7-1.3) H Estimated GFR (Cockcroft-Gault) 18.6 Glucose Level 93 mg/dL (70-99) Calcium Level 8.6 mg/dL (8.5-10.1) Current Medications: Meds: Laboratory Tests Test 11/24/20 09:45 Sodium Level 145 mmol/L Potassium Level 3.6 mmol/L Chloride Level 109 mmol/L Carbon Dioxide Level 28 mmol/L Anion Gap 8 Blood Urea Nitrogen 52 mg/dL Creatinine 3.2 mg/dL Estimated GFR (Cockcroft-Gault) 18.6 Glucose Level 93 mg/dL Calcium Level 8.6 mg/dL Current Medications Medications (Trade) Dose Ordered Sig/Kwame Route PRN Reason Start Time Stop Time Status Last Admin Dose Admin Acetaminophen (Tylenol) 650 mg PRN Q6HRS PRN PO MILD PAIN / TEMP > 100.3'F 11/16/20 12:15 Multi-Ingredient Ointment (Analgesic [place]) 1 gokul PRN QID PRN TP MUSCLE PAIN 11/16/20 12:15 Al Hydroxide/Mg Hydroxide (Mylanta Plus Xs) 15 ml PRN AFTMEALHC PRN PO DYSPEPSIA 11/16/20 12:15 Magnesium Hydroxide (Milk Of Magnesia) 2,400 mg PRN QHS PRN PO CONSTIPATION 11/16/20 12:15 Allopurinol (Zyloprim) 100 mg DAILY PO 11/17/20 09:00 11/24/20 08:31 Amlodipine Besylate (Norvasc) 10 mg DAILY PO 11/17/20 09:00 11/24/20 08:31 Donepezil HCl (Aricept) 10 mg DAILY PO 11/17/20 09:00 11/17/20 17:57 DC Famotidine (Pepcid) 10 mg DAILY PO 11/17/20 09:00 11/24/20 08:31 Finasteride (Proscar) 5 mg DAILY PO 11/17/20 09:00 11/24/20 08:31 Furosemide (Lasix) 20 mg DAILY PO 11/17/20 09:00 11/21/20 17:08 DC 11/21/20 09:37 Metoprolol Tartrate (Lopressor) 37.5 mg BID PO 11/16/20 21:00 11/24/20 19:43 Ropinirole HCl (Requip) 1 mg DAILY PO 11/17/20 09:00 11/18/20 18:19 DC 11/18/20 08:23 Tamsulosin HCl (Flomax) 0.4 mg DAILY PO 11/17/20 09:00 11/24/20 08:31 Apixaban (Eliquis) 2.5 mg BID PO 11/16/20 21:00 11/24/20 19:44 Multivitamins/ Calcium (Thera-M Plus) 1 tab DAILY PO 11/17/20 09:00 11/24/20 08:31 Vitamin D (Vitamin D3) 1,000 unit DAILY PO 11/17/20 09:00 11/24/20 08:31 Olanzapine (ZyPREXA ZYDIS) 2.5 mg PRN Q2HR PRN PO PSYCHOSIS 11/16/20 23:00 11/23/20 23:44 Trazodone HCl (Desyrel) 50 mg PRN QHS PRN PO INSOMNIA, MAY REPEAT X1 11/16/20 23:00 11/24/20 19:45 Rivastigmine (Exelon) 1 patch DAILY TD 11/18/20 09:00 11/24/20 21:00 DC 11/24/20 08:31 Rivastigmine (Exelon) 1 patch DAILY TD 11/25/20 09:00 Ropinirole HCl (Requip) 0.5 mg TID PO 11/18/20 21:00 11/24/20 19:42 Quetiapine Fumarate (SEROquel) 12.5 mg 0900,1700 PO 11/19/20 12:00 11/23/20 17:59 DC 11/23/20 15:27 Sertraline HCl (Zoloft) 25 mg DAILY PO 11/22/20 09:00 11/24/20 21:00 DC 11/24/20 08:31 Sertraline HCl (Zoloft) 50 mg DAILY PO 11/25/20 08:00 Mirtazapine (Remeron) 7.5 mg QHS PO 11/22/20 21:00 11/24/20 19:44 Quetiapine Fumarate (SEROquel) 12.5 mg 0900,1300,1700,2100 PO 11/23/20 21:00 11/24/20 19:44 Fluticasone Propionate (Flonase) 2 spray DAILY NS 11/25/20 09:00 Cetirizine HCl (ZyrTEC) 10 mg DAILY PO 11/25/20 09:00 I have reviewed the current psychotropics carefully including drug interactions. Risk benefit ratio favors no change other than as noted in my dictated progress note. 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
--- NOTE | 2020-11-25 08:38 | PDOC ---
Exam Note: Chaitanya Note: This note is a late entry for 11/24/2020 covers elements not covered in my initial note. Subjective: The patient was seen individually in the evening of 11/24/2020 with Salvador PENNY, discussed and reviewed the chart. He slept just 3 hours previous night. He has not been aggressive today, confused, compliant with his medications. Review of Systems: Ambulates with a walker. No CV, , pulmonary, eye, ENT system symptoms on review. Mental Status Exam: The patient is oriented to himself and situation. He is pleasant, verbal, interactive. Speech moderate latency. Often response is monosyllabic. Abstraction is fair. Computation impaired. Language function is intact. Mood and affect somewhat withdrawn. No suicidal or homicidal ideation. Laboratory Data: Reviewed. 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 Anxiety disorder unspecified. Impulse control disorder unspecified. Plan: No change from initial note. Assessment: Vital Signs/I&O: Vital Signs Date Time Temp Pulse Resp B/P (MAP) Pulse Ox O2 Delivery O2 Flow Rate FiO2 11/25/20 08:21 55 104/58 11/25/20 06:15 97.3 16 96 11/24/20 15:55 Room Air I & O 11/24/20 11/24/20 11/25/20 14:59 22:59 06:59 Intake Total 720 ml 360 ml Balance 720 ml 360 ml Labs: Laboratory Tests Test 11/24/20 09:45 Sodium Level 145 mmol/L (136-145) Potassium Level 3.6 mmol/L (3.5-5.1) Chloride Level 109 mmol/L (98-107) H Carbon Dioxide Level 28 mmol/L (21-32) Anion Gap 8 (6-14) Blood Urea Nitrogen 52 mg/dL (8-26) H Creatinine 3.2 mg/dL (0.7-1.3) H Estimated GFR (Cockcroft-Gault) 18.6 Glucose Level 93 mg/dL (70-99) Calcium Level 8.6 mg/dL (8.5-10.1) Current Medications: Meds: Laboratory Tests Test 11/24/20 09:45 Sodium Level 145 mmol/L Potassium Level 3.6 mmol/L Chloride Level 109 mmol/L Carbon Dioxide Level 28 mmol/L Anion Gap 8 Blood Urea Nitrogen 52 mg/dL Creatinine 3.2 mg/dL Estimated GFR (Cockcroft-Gault) 18.6 Glucose Level 93 mg/dL Calcium Level 8.6 mg/dL Current Medications Medications (Trade) Dose Ordered Sig/Kwame Route PRN Reason Start Time Stop Time Status Last Admin Dose Admin Acetaminophen (Tylenol) 650 mg PRN Q6HRS PRN PO MILD PAIN / TEMP > 100.3'F 11/16/20 12:15 Multi-Ingredient Ointment (Analgesic [place]) 1 gokul PRN QID PRN TP MUSCLE PAIN 11/16/20 12:15 Al Hydroxide/Mg Hydroxide (Mylanta Plus Xs) 15 ml PRN AFTMEALHC PRN PO DYSPEPSIA 11/16/20 12:15 Magnesium Hydroxide (Milk Of Magnesia) 2,400 mg PRN QHS PRN PO CONSTIPATION 11/16/20 12:15 Allopurinol (Zyloprim) 100 mg DAILY PO 11/17/20 09:00 11/25/20 08:21 Amlodipine Besylate (Norvasc) 10 mg DAILY PO 11/17/20 09:00 11/25/20 08:21 Donepezil HCl (Aricept) 10 mg DAILY PO 11/17/20 09:00 11/17/20 17:57 DC Famotidine (Pepcid) 10 mg DAILY PO 11/17/20 09:00 11/25/20 08:22 Finasteride (Proscar) 5 mg DAILY PO 11/17/20 09:00 11/25/20 08:22 Furosemide (Lasix) 20 mg DAILY PO 11/17/20 09:00 11/21/20 17:08 DC 11/21/20 09:37 Metoprolol Tartrate (Lopressor) 37.5 mg BID PO 11/16/20 21:00 11/25/20 08:21 Ropinirole HCl (Requip) 1 mg DAILY PO 11/17/20 09:00 11/18/20 18:19 DC 11/18/20 08:23 Tamsulosin HCl (Flomax) 0.4 mg DAILY PO 11/17/20 09:00 11/25/20 08:20 Apixaban (Eliquis) 2.5 mg BID PO 11/16/20 21:00 11/25/20 08:20 Multivitamins/ Calcium (Thera-M Plus) 1 tab DAILY PO 11/17/20 09:00 11/25/20 08:21 Vitamin D (Vitamin D3) 1,000 unit DAILY PO 11/17/20 09:00 11/25/20 08:23 Olanzapine (ZyPREXA ZYDIS) 2.5 mg PRN Q2HR PRN PO PSYCHOSIS 11/16/20 23:00 11/23/20 23:44 Trazodone HCl (Desyrel) 50 mg PRN QHS PRN PO INSOMNIA, MAY REPEAT X1 11/16/20 23:00 11/24/20 19:45 Rivastigmine (Exelon) 1 patch DAILY TD 11/18/20 09:00 11/24/20 21:00 DC 11/24/20 08:31 Rivastigmine (Exelon) 1 patch DAILY TD 11/25/20 09:00 11/25/20 08:20 Ropinirole HCl (Requip) 0.5 mg TID PO 11/18/20 21:00 11/25/20 08:22 Quetiapine Fumarate (SEROquel) 12.5 mg 0900,1700 PO 11/19/20 12:00 11/23/20 17:59 DC 11/23/20 15:27 Sertraline HCl (Zoloft) 25 mg DAILY PO 11/22/20 09:00 11/24/20 21:00 DC 11/24/20 08:31 Sertraline HCl (Zoloft) 50 mg DAILY PO 11/25/20 08:00 11/25/20 08:23 Mirtazapine (Remeron) 7.5 mg QHS PO 11/22/20 21:00 11/24/20 19:44 Quetiapine Fumarate (SEROquel) 12.5 mg 0900,1300,1700,2100 PO 11/23/20 21:00 11/25/20 08:22 Fluticasone Propionate (Flonase) 2 spray DAILY NS 11/25/20 09:00 11/25/20 08:22 Cetirizine HCl (ZyrTEC) 10 mg DAILY PO 11/25/20 09:00 11/25/20 08:21 Current Medications Medications (Trade) Dose Ordered Sig/Kwame Route PRN Reason Start Time Stop Time Status Last Admin Dose Admin Rivastigmine (Exelon) 1 patch DAILY TD 11/25/20 09:00 11/25/20 08:20 Sertraline HCl (Zoloft) 50 mg DAILY PO 11/25/20 08:00 11/25/20 08:23 Fluticasone Propionate (Flonase) 2 spray DAILY NS 11/25/20 09:00 11/25/20 08:22 Cetirizine HCl (ZyrTEC) 10 mg DAILY PO 11/25/20 09:00 11/25/20 08:21 I have reviewed the current psychotropics carefully including drug interactions. Risk benefit ratio favors no change other than as noted in my dictated progress note. 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
[2020-11-25 15:48] VITALS: BP 100/60
--- NOTE | 2020-11-25 16:31 | RAD ---
EXAM: CT HEAD WITHOUT CONTRAST. HISTORY: Fall, head injury. TECHNIQUE: Computed tomography of the head was performed without intravenous contrast. One or more of the following individualized dose reduction techniques were utilized for this examination: 1. Automated exposure control. 2. Adjustment of the mA and/or kV according to patient size. 3. Use of iterative reconstruction technique. COMPARISON: None. FINDINGS: There is no intracranial hemorrhage. Hypoattenuation within the periventricular white matte r indicates mild chronic microangiopathic change. Enlargement of the ventricles and hemispheric sulci indicates moderate to severe atrophy. The visualized paranasal sinuses appear clear. There are changes of bilateral cataract surgery. The t emporal bones are unremarkable. The calvarium reveals no suspicious lesions. There is a soft tissue c ontusion or scarring inferior to the occiput. IMPRESSION: 1. No acute intracranial findings. 2. Moderate to severe atrophy and mild chronic microangiopathic white matter change. Electronically signed by: Tiffany Arzate MD (11/25/2020 4:29 PM) [facility]
[2020-11-25] MEDS: MIRTAZAPINE 7.5 MG TABLET. PO SCH (19:56)
[2020-11-25] MEDS: amLODIPine BESYLATE 5 MG TABLET PO SCH (19:59)
[2020-11-25] MEDS: traZODone 50 MG TABLET. PO PRN (21:17)
--- NOTE | 2020-11-25 21:55 | PDOC ---
Exam Note: Chaitanya Note: Please also refer to the separate dictated note~for this date of service dictated separately.~Patient seen individually. Discussed the patient with Nursing staff reviewed the chart.~Reviewed interim history and current functioning. Reviewed vital signs,~Labs/ Radiology~and current medications noted below. Continue current treatment with the changes noted in the dictated addendum note Assessment: Vital Signs/I&O: Vital Signs Date Time Temp Pulse Resp B/P (MAP) Pulse Ox O2 Delivery O2 Flow Rate FiO2 11/25/20 21:00 63 104/63 11/25/20 15:48 96.2 17 95 11/24/20 15:55 Room Air I & O 11/24/20 11/24/20 11/25/20 15:00 23:00 07:00 Intake Total 720 ml 360 ml Balance 720 ml 360 ml Current Medications: Meds: Current Medications Medications (Trade) Dose Ordered Sig/Kwame Route PRN Reason Start Time Stop Time Status Last Admin Dose Admin Rivastigmine (Exelon) 1 patch DAILY TD 11/25/20 09:00 11/25/20 08:20 Sertraline HCl (Zoloft) 50 mg DAILY PO 11/25/20 08:00 11/25/20 08:23 Fluticasone Propionate (Flonase) 2 spray DAILY NS 11/25/20 09:00 11/25/20 08:22 Cetirizine HCl (ZyrTEC) 10 mg DAILY PO 11/25/20 09:00 11/25/20 08:21 I have reviewed the current psychotropics carefully including drug interactions. Risk benefit ratio favors no change other than as noted in my dictated progress note. 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
[2020-11-26 06:32] VITALS: BP 149/73
--- NOTE | 2020-11-26 08:43 | PDOC ---
Exam Note: Chaitanya Note: This note is a late entry for 11/25/2020 covers elements not covered in my initial note. Subjective: The patient was seen individually in the evening of 11/25/2020 with Salvador PENNY, discussed and reviewed the chart. He slept just 7-1/2 hours previous night. Around 4 p.m. today reportedly the patient had a syncopal episode, hit his head. CT head was done per Dr. Wray and was unremarkable. Blood pressure has been low and he has been somewhat bradycardic. We will defer medical management to Dr. Wray. Review of Systems: Ambulates with a walker. No CV, , pulmonary, eye, ENT system symptoms on review. Mental Status Exam: The patient is oriented to himself and situation. As I was standing with the patient, he was trying to grab my nursing report sheet out of my hand but did redirect, remains confused. Speech moderate latency. Often response is monosyllabic. Abstraction is fair. Computation impaired. Language function is intact. Mood and affect somewhat withdrawn. No suicidal or homicidal ideation. Laboratory Data: Reviewed. 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 Anxiety disorder unspecified. Impulse control disorder unspecified. Plan: We will defer to Dr. Wray for medical reassessment of his hypotension. We will adjust psychotropics further as clinically indicated. Assessment: Vital Signs/I&O: Vital Signs Date Time Temp Pulse Resp B/P (MAP) Pulse Ox O2 Delivery O2 Flow Rate FiO2 11/26/20 06:32 98.0 84 18 149/73 (98) 94 Room Air I & O 11/25/20 11/25/20 11/26/20 15:00 23:00 07:00 Intake Total 600 ml 480 ml Balance 600 ml 480 ml Current Medications: Meds: Current Medications Medications (Trade) Dose Ordered Sig/Kwame Route PRN Reason Start Time Stop Time Status Last Admin Dose Admin Acetaminophen (Tylenol) 650 mg PRN Q6HRS PRN PO MILD PAIN / TEMP > 100.3'F 11/16/20 12:15 Multi-Ingredient Ointment (Analgesic [place]) 1 gokul PRN QID PRN TP MUSCLE PAIN 11/16/20 12:15 Al Hydroxide/Mg Hydroxide (Mylanta Plus Xs) 15 ml PRN AFTMEALHC PRN PO DYSPEPSIA 11/16/20 12:15 Magnesium Hydroxide (Milk Of Magnesia) 2,400 mg PRN QHS PRN PO CONSTIPATION 11/16/20 12:15 Allopurinol (Zyloprim) 100 mg DAILY PO 11/17/20 09:00 11/25/20 08:21 Amlodipine Besylate (Norvasc) 10 mg DAILY PO 11/17/20 09:00 11/25/20 18:11 DC 11/25/20 08:21 Donepezil HCl (Aricept) 10 mg DAILY PO 11/17/20 09:00 11/17/20 17:57 DC Famotidine (Pepcid) 10 mg DAILY PO 11/17/20 09:00 11/25/20 08:22 Finasteride (Proscar) 5 mg DAILY PO 11/17/20 09:00 11/25/20 08:22 Furosemide (Lasix) 20 mg DAILY PO 11/17/20 09:00 11/21/20 17:08 DC 11/21/20 09:37 Metoprolol Tartrate (Lopressor) 37.5 mg BID PO 11/16/20 21:00 11/25/20 18:11 DC 11/25/20 08:21 Ropinirole HCl (Requip) 1 mg DAILY PO 11/17/20 09:00 11/18/20 18:19 DC 11/18/20 08:23 Tamsulosin HCl (Flomax) 0.4 mg DAILY PO 11/17/20 09:00 11/25/20 08:20 Apixaban (Eliquis) 2.5 mg BID PO 11/16/20 21:00 11/25/20 19:57 Multivitamins/ Calcium (Thera-M Plus) 1 tab DAILY PO 11/17/20 09:00 11/25/20 08:21 Vitamin D (Vitamin D3) 1,000 unit DAILY PO 11/17/20 09:00 11/25/20 08:23 Olanzapine (ZyPREXA ZYDIS) 2.5 mg PRN Q2HR PRN PO PSYCHOSIS 11/16/20 23:00 11/25/20 21:17 Trazodone HCl (Desyrel) 50 mg PRN QHS PRN PO INSOMNIA, MAY REPEAT X1 11/16/20 23:00 11/25/20 21:17 Rivastigmine (Exelon) 1 patch DAILY TD 11/18/20 09:00 11/24/20 21:00 DC 11/24/20 08:31 Rivastigmine (Exelon) 1 patch DAILY TD 11/25/20 09:00 11/25/20 08:20 Ropinirole HCl (Requip) 0.5 mg TID PO 11/18/20 21:00 11/25/20 19:57 Quetiapine Fumarate (SEROquel) 12.5 mg 0900,1700 PO 11/19/20 12:00 11/23/20 17:59 DC 11/23/20 15:27 Sertraline HCl (Zoloft) 25 mg DAILY PO 11/22/20 09:00 11/24/20 21:00 DC 11/24/20 08:31 Sertraline HCl (Zoloft) 50 mg DAILY PO 11/25/20 08:00 11/25/20 08:23 Mirtazapine (Remeron) 7.5 mg QHS PO 11/22/20 21:00 11/25/20 19:56 Quetiapine Fumarate (SEROquel) 12.5 mg 0900,1300,1700,2100 PO 11/23/20 21:00 11/25/20 19:57 Fluticasone Propionate (Flonase) 2 spray DAILY NS 11/25/20 09:00 11/25/20 08:22 Cetirizine HCl (ZyrTEC) 10 mg DAILY PO 11/25/20 09:00 11/25/20 08:21 Amlodipine Besylate (Norvasc) 5 mg DAILY PO 11/25/20 18:15 Metoprolol Tartrate (Lopressor) 25 mg BID PO 11/25/20 18:15 Current Medications Medications (Trade) Dose Ordered Sig/Kwame Route PRN Reason Start Time Stop Time Status Last Admin Dose Admin Rivastigmine (Exelon) 1 patch DAILY TD 11/25/20 09:00 11/25/20 08:20 Fluticasone Propionate (Flonase) 2 spray DAILY NS 11/25/20 09:00 11/25/20 08:22 Cetirizine HCl (ZyrTEC) 10 mg DAILY PO 11/25/20 09:00 11/25/20 08:21 I have reviewed the current psychotropics carefully including drug interactions. Risk benefit ratio favors no change other than as noted in my dictated progress note. 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
[2020-11-26] MEDS: ALLOPURINOL 100 MG TABLET. PO SCH (08:56)
[2020-11-26] MEDS: MULTIVITAMIN with MINERAL TABLET. PO SCH (08:56)
[2020-11-26] MEDS: rOPINIRole 0.5 MG TABLET. PO SCH ×3 (08:57→22:06)
[2020-11-26] MEDS: FAMOTIDINE 20 MG TABLET PO SCH (08:57)
[2020-11-26] MEDS: METOPROLOL TART IMMED RELEASE 25 MG TABLET. PO SCH ×2 (08:57→22:06)
[2020-11-26] MEDS: CETIRIZINE HCL 10 MG TABLET PO SCH (08:57)
[2020-11-26] MEDS: amLODIPine BESYLATE 5 MG TABLET PO SCH (08:57)
[2020-11-26] MEDS: TAMSULOSIN 0.4 MG CAP.ER.24H. PO SCH (08:58)
[2020-11-26] MEDS: CHOLECALCIFEROL (VITAMIN D3) 1,000 UNIT TABLET PO SCH (08:58)
[2020-11-26] MEDS: QUEtiapine 25 MG TABLET. PO SCH ×4 (08:58→22:06)
[2020-11-26] MEDS: FINASTERIDE 5 MG TABLET. PO SCH (08:58)
[2020-11-26] MEDS: SERTRALINE 50 MG TABLET. PO SCH (08:58)
[2020-11-26] MEDS: APIXABAN 2.5 MG TABLET PO SCH ×2 (08:58→22:06)
[2020-11-26] MEDS: RIVASTIGMINE 9.5MG PATCH. TD SCH (08:59)
[2020-11-26] MEDS: FLUTICASONE 50MCG/NASAL SPRAY 16GM BOTTLE. NS SCH (08:59)
[2020-11-26 09:13] LABS: BASO % 1 % (0-3); EOS # 0.2 x10^3/uL (0.0-0.7); EOS % 5 % (0-3); HEMATOCRIT 35.4 % (39.0-53.0); HEMOGLOBIN 11.3 g/dL (13.0-17.5); LYMPH # 1.2 x10^3/uL (1.0-4.8); LYMPH % 24 % (24-48); MEAN CORPUSCULAR HEMOGLOBIN 28 pg (25-35); MEAN CORPUSCULAR HGB CONC 32 g/dL (31-37); MEAN CORPUSCULAR VOLUME 89 fL (79-100); MONO # 0.3 x10^3/uL (0.0-1.1); MONO % 6 % (0-9); NEUT # 3.2 x10^3uL (1.8-7.7); NEUT % 65 % (31-73); PLATELET COUNT 131 x10^3/uL (140-400); RED BLOOD COUNT 3.99 x10^6/uL (4.30-5.70); RED CELL DISTRIBUTION WIDTH 15.2 % (11.5-14.5); WHITE BLOOD COUNT 4.9 x10^3/uL (4.0-11.0)
[2020-11-26 15:28] VITALS: BP 103/64
--- NOTE | 2020-11-26 15:51 | TX PLAN ---
Interdisciplinary Tx Plan Admission Information Nov 16, 2020 at 09:45 Legal Status (on Admission): Voluntary DPOA/Guardian Name: Pennie Galeas Contact Verified Code Status: DNR Allergies: Coded Allergies: acetaminophen (Verified Allergy, Unknown, 11/14/20) fentanyl (Verified Allergy, Unknown, 11/14/20) metoclopramide (Verified Allergy, Unknown, 11/14/20) oxycodone (Verified Allergy, Unknown, 11/14/20) ropinirole (Verified Allergy, Unknown, 11/14/20) Diagnoses Primary Diagnosis: Major Neurocognitive D/O, vascular Alzheimers with delusions, depression and BD. Reasons for Admission: Agitated, Sig. Change Sleep, Hallucinations, Confusion/ Disoriented, Other Problem in Patient's Words: Increasing behaviors that are not manageable at home. Additional Admission Comments: According to the intake, pt is having visual hallucinations (seeing faces), agitated, insomnia, up in the middle of the night (leaving sink on or the fridge open), attempting to leave home at times. Problems Active Problems: Visual hallucinations, agitated, poor sleep restless, combative Inactive Problems: medication compliance Pt Strengths/Limitations Ability for Capac: Poor Cognitive Functioning/Ability: Poor Communication Skills/Ability: Fair Financial Resources: Fair Insight/Judgement: Poor Intellectual Ability: Fair Physical Health: Poor Social Skills: Poor Stability in Family: Excellent Stability in School/Work: Poor Verbal Skills: Fair Discharge Criteria Discharge Criteria: No need for close observ., Adequate arrangements @DC, Improved behavior, Improved mood/thought Preliminary Discharge Plan Preliminary DC Plan: Placement Needed Special Precautions Fall Risk: Moderate Initial D/C Plan Pt is not able to return home; referrals for placement will be needed. Identified Discharge Needs: Referrals for Memory Care Currently Utilized Resources Currently Utilized Resources/P: Primary Care Physician Referrals Community Resources: Family attempting to get [facility] services Identified Problems/Hx/Goals Objectives/Short-Term Goals Short Term Goals: Dec. Hallucination/Delus, Dec. Outbursts, Medication Stabilization Short Term Goals in Patient's: N/A Interventions/Frequency Staff Interventions/Frequency&: Psychiatrist to assess pt at least 3x per week for medication management Social Work to assess pt at least 2x per week to identify barriers to care and final discharge plans/goals. Nursing to assess medication effects, behavior management and completion of 15 minute checks daily. Encourage participation in group activities (if applicable) or 1:1 engagement based of Activity Dept goals. 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 Education: Pt graduated high school from [place] and attended college at [employer] with a B.S. in Business and minor in Finance. Community Follow-up Primary Care Physician Community Provider/Family Inpu: Getting to be too much for pt to care for at home. Treatment Plan Explained Patient/Edging Machine Catcher had this treatment plan explained to him/her as indicated by the signature below and has been given the opportunity to ask questions and make suggestions: Date: Patient/Edging Machine Catcher Signature: Status Update Update Pt , Pennie, and two sons, Abdelrahman and Simeon, participated in tx team via telephone. Pt is eating roughly 50% of meals and sleeping on average 5 hours per night. However, last night pt slept roughly 2 hours. Pt is very confused and continues to have visual/tactile hallucinations, AEB pt attempts to pick at things on the floor or in the air that are not there. There are times noted that pt can be difficult to re-direct; however, not physically aggressive with staff. Pt family is concerned about pt not recognizing them on the phone and pt falls. It was noted that pt blood pressure was low, which has contributed to the fall, the most recent being yesterday in which pt blood pressure reading was 100/60. Pt blood pressure medications were decreased and physical therapy will continue to work with pt. The family questioned if pt would have to use a gait belt or the team plan for fall prevention. It was recommended to see if the Physical Therapist could call the family to let them know their goals for therapy. Pt family questioned if the medication was making pt more out of sorts and it was discussed that with pt being in a new environment versus home, pt disorientation would be normal. Furthermore, all parties agree that with pt presentation of Lewy Body Dementia, pt would not be able to handle pt at home alone. Staff will gather a UA to rule out any UTI possibility; if there is no UTI, pt will be able to stop the Seroquel and the Zoloft to see if that helps. However, the Exelon Patch would continue, as will the Remeron to aid in pt sleep. Pt family has been looking into facilities and will continue to work with SW in getting the appropriate placement picked out. ESTELA REDD Nov 26, 2020 15:51
[2020-11-26] MEDS ORDERED: IV DEXTROSE 5% - 0.9 % NACL 1,000 ML IV SCH (17:45)
[2020-11-26] MEDS: IV DEXTROSE 5% 1,000 ML IV SCH (18:29)
--- NOTE | 2020-11-26 22:00 | PDOC ---
Exam Note: Chaitanya Note: Please also refer to the separate dictated note~for this date of service dictated separately.~Patient seen individually. Discussed the patient with Nursing staff reviewed the chart.~Reviewed interim history and current functioning. Reviewed vital signs,~Labs/ Radiology~and current medications noted below. Continue current treatment with the changes noted in the dictated addendum note Assessment: Vital Signs/I&O: Vital Signs Date Time Temp Pulse Resp B/P (MAP) Pulse Ox O2 Delivery O2 Flow Rate FiO2 11/26/20 15:28 98.0 50 16 103/64 (77) 96 11/26/20 06:32 Room Air I & O 11/25/20 11/25/20 11/26/20 15:00 23:00 07:00 Intake Total 600 ml 480 ml Balance 600 ml 480 ml Labs: Laboratory Tests Test 11/26/20 09:04 White Blood Count 4.9 x10^3/uL (4.0-11.0) Red Blood Count 3.99 x10^6/uL (4.30-5.70) L Hemoglobin 11.3 g/dL (13.0-17.5) L Hematocrit 35.4 % (39.0-53.0) L Mean Corpuscular Volume 89 fL (79-100) Mean Corpuscular Hemoglobin 28 pg (25-35) Mean Corpuscular Hemoglobin Concent 32 g/dL (31-37) Red Cell Distribution Width 15.2 % (11.5-14.5) H Platelet Count 131 x10^3/uL (140-400) L Neutrophils (%) (Auto) 65 % (31-73) Lymphocytes (%) (Auto) 24 % (24-48) Monocytes (%) (Auto) 6 % (0-9) Eosinophils (%) (Auto) 5 % (0-3) H Basophils (%) (Auto) 1 % (0-3) Neutrophils # (Auto) 3.2 x10^3uL (1.8-7.7) Lymphocytes # (Auto) 1.2 x10^3/uL (1.0-4.8) Monocytes # (Auto) 0.3 x10^3/uL (0.0-1.1) Eosinophils # (Auto) 0.2 x10^3/uL (0.0-0.7) Basophils # (Auto) 0.0 x10^3/uL (0.0-0.2) Current Medications: Meds: Current Medications Medications (Trade) Dose Ordered Sig/Kwame Route PRN Reason Start Time Stop Time Status Last Admin Dose Admin Dextrose 1,000 ml @ 75 mls/hr [id number] IV 11/26/20 18:30 11/26/20 18:29 I have reviewed the current psychotropics carefully including drug interactions. Risk benefit ratio favors no change other than as noted in my dictated progress note. 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
[2020-11-26] MEDS: MIRTAZAPINE 15 MG TABLET PO SCH (22:06)
[2020-11-27] MEDS: IV DEXTROSE 5% 1,000 ML IV SCH ×2 (06:06→07:50)
[2020-11-27 06:07] VITALS: BP 131/71
--- NOTE | 2020-11-27 06:39 | RAD ---
Chest AP portable at 0620: Reason for examination: New onset of wheezing and wet cough. The heart size is normal. Mediastinum is unremarkable. Lung emanuel are clear. No acute bony abnormali ties are seen. IMPRESSION: No acute cardiopulmonary disease evident. Electronically signed by: Veronica Smyth MD (11/27/2020 6:36 AM) [facility]
[2020-11-27 06:43] LABS: BILIRUBIN,URINE NEG (NEG); CLARITY,URINE CLEAR; COLOR,URINE YELLOW; GLUCOSE,URINE NEG (NEG)
[2020-11-27 06:44] LABS: BACTERIA,URINE 0 /HPF (0-FEW); NITRITE,URINE NEG (NEG); SQUAMOUS EPITHELIAL CELL,UR OCC /LPF; UROBILINOGEN,URINE 0.2 mg/dL (0.2 mg/dL)
[2020-11-27 07:33] LABS: BASO % 0 % (0-3); EOS # 0.2 x10^3/uL (0.0-0.7); EOS % 3 % (0-3); HEMOGLOBIN 10.3 g/dL (13.0-17.5); LYMPH # 0.8 x10^3/uL (1.0-4.8); LYMPH % 15 % (24-48); MEAN CORPUSCULAR HEMOGLOBIN 28 pg (25-35); MEAN CORPUSCULAR HGB CONC 32 g/dL (31-37); MEAN CORPUSCULAR VOLUME 88 fL (79-100); MONO # 0.3 x10^3/uL (0.0-1.1); MONO % 5 % (0-9); NEUT # 3.7 x10^3uL (1.8-7.7); NEUT % 76 % (31-73); PLATELET COUNT 119 x10^3/uL (140-400); RED BLOOD COUNT 3.64 x10^6/uL (4.30-5.70); WHITE BLOOD COUNT 4.9 x10^3/uL (4.0-11.0)
[2020-11-27 07:46] LABS: CALCIUM 7.9 mg/dL (8.5-10.1); CREATININE 1.9 mg/dL (0.7-1.3); GFR 33.9; POTASSIUM 3.5 mmol/L (3.5-5.1)
[2020-11-27] MEDS: SERTRALINE 50 MG TABLET. PO SCH (09:00)
[2020-11-27] MEDS: QUEtiapine 25 MG TABLET. PO SCH ×2 (09:00→13:00)
[2020-11-27] MEDS: FLUTICASONE 50MCG/NASAL SPRAY 16GM BOTTLE. NS SCH (09:00)
[2020-11-27] MEDS: CETIRIZINE HCL 10 MG TABLET PO SCH (10:25)
[2020-11-27] MEDS: CHOLECALCIFEROL (VITAMIN D3) 1,000 UNIT TABLET PO SCH (10:25)
[2020-11-27] MEDS: RIVASTIGMINE 9.5MG PATCH. TD SCH (10:25)
--- NOTE | 2020-11-27 10:29 | PDOC ---
Exam Note: Chaitanya Note: This note is a late entry for 11/26/2020 covers elements not covered in my initial note. Subjective: The patient was reviewed in the morning of 11/26/2020 for a treatment team meeting with Nuria Clifford, Gabbi Rebollar and Laureen (high school social studies tutor), Jing, activity therapy and Shakila PENNY, discussed and reviewed the chart. His Pennie attended treatment team meeting along with his sons Abdelrahman and Simeon. He was also seen individually in the evening of 11/26. He slept just 2-1/2 hours previous night. Appetite is 50%. He remains confused, somewhat delusional, talking about going fishing. Family are concerned about his increased confusion, inability to recognize them over the telephone. 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 There was concern about his psychotropics, worsening confusion. We will check UA to make sure he does not have UTI. Check labs and if all this is unremarkable, we may taper and stop the Zoloft and Seroquel while continuing the Exelon patch and Remeron and see if this changes his cognition given the familys concerns. Nevertheless by the time I saw him in the evening on rounds his labs had shown some dehydration and he is on IV fluids per Dr. Wray/Dr. Cortes. UA is still to be collected. Family also discussed about food service attendant care placement and this seems appropriate disposition for now. Review of Systems: Patient complains of some tiredness. No CV, , pulmonary, eye, ENT system symptoms on review. Reliability poor. Mental Status Exam: The patient is oriented to himself and situation. He was confused. Insight and judgement, recent and remote memory, attention and concentration, fund of knowledge is poor consistent with his diagnoses. No suicidal or homicidal ideation. Laboratory Data: Reviewed. 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 Anxiety disorder unspecified. Impulse control disorder unspecified. Dehydration. Plan: We will increase the Remeron to 15 mg h.s. given his insomnia, stabilize medically, and reassess cognition thereafter. Pursue placement. Maintain current psychotropics. Exelon patch is being increased to 9.5 mg a day. Assessment: Vital Signs/I&O: Vital Signs Date Time Temp Pulse Resp B/P (MAP) Pulse Ox O2 Delivery O2 Flow Rate FiO2 11/27/20 06:07 97.6 58 20 131/71 (91) 95 Room Air I & O 11/26/20 11/26/20 11/27/20 14:59 22:59 06:59 Intake Total 840 ml 480 ml Balance 840 ml 480 ml Labs: Laboratory Tests Test 11/27/20 05:50 11/27/20 07:01 Urine Collection Type Unknown Urine Color Yellow Urine Clarity Clear Urine pH 5.5 Urine Specific [place] 1.015 Urine Protein Neg (NEG-TRACE) Urine Glucose (UA) Neg mg/dL (NEG) Urine Ketones (Stick) Neg mg/dL (NEG) Urine Blood Neg (NEG) Urine Nitrite Neg (NEG) Urine Bilirubin Neg (NEG) Urine Urobilinogen Dipstick 0.2 mg/dL (0.2 mg/dL) Urine Leukocyte Esterase Neg (NEG) Urine RBC 3-5 /HPF (0-2) Urine WBC 1-4 /HPF (0-4) Urine Squamous Epithelial Cells Occ /LPF Urine Bacteria 0 /HPF (0-FEW) White Blood Count 4.9 x10^3/uL (4.0-11.0) Red Blood Count 3.64 x10^6/uL (4.30-5.70) L Hemoglobin 10.3 g/dL (13.0-17.5) L Hematocrit 32.0 % (39.0-53.0) L Mean Corpuscular Volume 88 fL (79-100) Mean Corpuscular Hemoglobin 28 pg (25-35) Mean Corpuscular Hemoglobin Concent 32 g/dL (31-37) Red Cell Distribution Width 15.0 % (11.5-14.5) H Platelet Count 119 x10^3/uL (140-400) L Neutrophils (%) (Auto) 76 % (31-73) H Lymphocytes (%) (Auto) 15 % (24-48) L Monocytes (%) (Auto) 5 % (0-9) Eosinophils (%) (Auto) 3 % (0-3) Basophils (%) (Auto) 0 % (0-3) Neutrophils # (Auto) 3.7 x10^3uL (1.8-7.7) Lymphocytes # (Auto) 0.8 x10^3/uL (1.0-4.8) L Monocytes # (Auto) 0.3 x10^3/uL (0.0-1.1) Eosinophils # (Auto) 0.2 x10^3/uL (0.0-0.7) Basophils # (Auto) 0.0 x10^3/uL (0.0-0.2) Sodium Level 145 mmol/L (136-145) Potassium Level 3.5 mmol/L (3.5-5.1) Chloride Level 109 mmol/L (98-107) H Carbon Dioxide Level 25 mmol/L (21-32) Anion Gap 11 (6-14) Blood Urea Nitrogen 43 mg/dL (8-26) H Creatinine 1.9 mg/dL (0.7-1.3) H Estimated GFR (Cockcroft-Gault) 33.9 Glucose Level 83 mg/dL (70-99) Lactic Acid Level 0.8 mmol/L (0.4-2.0) Calcium Level 7.9 mg/dL (8.5-10.1) L Current Medications: Meds: Current Medications Medications (Trade) Dose Ordered Sig/Kwame Route PRN Reason Start Time Stop Time Status Last Admin Dose Admin Dextrose 1,000 ml @ 75 mls/hr [id number] IV 11/26/20 18:30 11/26/20 18:29 I have reviewed the current psychotropics carefully including drug interactions. Risk benefit ratio favors no change other than as noted in my dictated progress note. 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
[2020-11-27] MEDS: amLODIPine BESYLATE 5 MG TABLET PO SCH (10:32)
[2020-11-27] MEDS: MULTIVITAMIN with MINERAL TABLET. PO SCH (10:32)
[2020-11-27] MEDS: rOPINIRole 0.5 MG TABLET. PO SCH ×3 (10:32→20:03)
[2020-11-27] MEDS: TAMSULOSIN 0.4 MG CAP.ER.24H. PO SCH (10:32)
[2020-11-27] MEDS: FINASTERIDE 5 MG TABLET. PO SCH (10:32)
[2020-11-27] MEDS: FAMOTIDINE 20 MG TABLET PO SCH (10:33)
[2020-11-27] MEDS: APIXABAN 2.5 MG TABLET PO SCH ×2 (10:33→20:04)
[2020-11-27] MEDS: ALLOPURINOL 100 MG TABLET. PO SCH (10:33)
[2020-11-27] MEDS: METOPROLOL TART IMMED RELEASE 25 MG TABLET. PO SCH ×2 (10:33→20:03)
[2020-11-27 16:17] VITALS: BP 139/63
[2020-11-27] MEDS: MIRTAZAPINE 15 MG TABLET PO SCH (20:04)
--- NOTE | 2020-11-27 21:53 | PDOC ---
Exam Note: Chaitanya Note: Please also refer to the separate dictated note~for this date of service dictated separately.~Patient seen individually. Discussed the patient with Nursing staff reviewed the chart.~Reviewed interim history and current functioning. Reviewed vital signs,~Labs/ Radiology~and current medications noted below. Continue current treatment with the changes noted in the dictated addendum note Assessment: Vital Signs/I&O: Vital Signs Date Time Temp Pulse Resp B/P (MAP) Pulse Ox O2 Delivery O2 Flow Rate FiO2 11/27/20 20:03 50 139/63 11/27/20 16:17 97.0 18 98 11/27/20 06:07 Room Air I & O 11/26/20 11/26/20 11/27/20 15:00 23:00 07:00 Intake Total 840 ml 480 ml Balance 840 ml 480 ml Labs: Laboratory Tests Test 11/27/20 05:50 11/27/20 07:01 Urine Collection Type Unknown Urine Color Yellow Urine Clarity Clear Urine pH 5.5 Urine Specific [place] 1.015 Urine Protein Neg (NEG-TRACE) Urine Glucose (UA) Neg mg/dL (NEG) Urine Ketones (Stick) Neg mg/dL (NEG) Urine Blood Neg (NEG) Urine Nitrite Neg (NEG) Urine Bilirubin Neg (NEG) Urine Urobilinogen Dipstick 0.2 mg/dL (0.2 mg/dL) Urine Leukocyte Esterase Neg (NEG) Urine RBC 3-5 /HPF (0-2) Urine WBC 1-4 /HPF (0-4) Urine Squamous Epithelial Cells Occ /LPF Urine Bacteria 0 /HPF (0-FEW) White Blood Count 4.9 x10^3/uL (4.0-11.0) Red Blood Count 3.64 x10^6/uL (4.30-5.70) L Hemoglobin 10.3 g/dL (13.0-17.5) L Hematocrit 32.0 % (39.0-53.0) L Mean Corpuscular Volume 88 fL (79-100) Mean Corpuscular Hemoglobin 28 pg (25-35) Mean Corpuscular Hemoglobin Concent 32 g/dL (31-37) Red Cell Distribution Width 15.0 % (11.5-14.5) H Platelet Count 119 x10^3/uL (140-400) L Neutrophils (%) (Auto) 76 % (31-73) H Lymphocytes (%) (Auto) 15 % (24-48) L Monocytes (%) (Auto) 5 % (0-9) Eosinophils (%) (Auto) 3 % (0-3) Basophils (%) (Auto) 0 % (0-3) Neutrophils # (Auto) 3.7 x10^3uL (1.8-7.7) Lymphocytes # (Auto) 0.8 x10^3/uL (1.0-4.8) L Monocytes # (Auto) 0.3 x10^3/uL (0.0-1.1) Eosinophils # (Auto) 0.2 x10^3/uL (0.0-0.7) Basophils # (Auto) 0.0 x10^3/uL (0.0-0.2) Sodium Level 145 mmol/L (136-145) Potassium Level 3.5 mmol/L (3.5-5.1) Chloride Level 109 mmol/L (98-107) H Carbon Dioxide Level 25 mmol/L (21-32) Anion Gap 11 (6-14) Blood Urea Nitrogen 43 mg/dL (8-26) H Creatinine 1.9 mg/dL (0.7-1.3) H Estimated GFR (Cockcroft-Gault) 33.9 Glucose Level 83 mg/dL (70-99) Lactic Acid Level 0.8 mmol/L (0.4-2.0) Calcium Level 7.9 mg/dL (8.5-10.1) L Current Medications: Meds: Laboratory Tests Test 11/27/20 05:50 11/27/20 07:01 Urine Collection Type Unknown Urine Color Yellow Urine Clarity Clear Urine pH 5.5 Urine Specific [place] 1.015 Urine Protein Neg Urine Glucose (UA) Neg mg/dL Urine Ketones (Stick) Neg mg/dL Urine Blood Neg Urine Nitrite Neg Urine Bilirubin Neg Urine Urobilinogen Dipstick 0.2 mg/dL Urine Leukocyte Esterase Neg Urine RBC 3-5 /HPF Urine WBC 1-4 /HPF Urine Squamous Epithelial Cells Occ /LPF Urine Bacteria 0 /HPF White Blood Count 4.9 x10^3/uL Red Blood Count 3.64 x10^6/uL Hemoglobin 10.3 g/dL Hematocrit 32.0 % Mean Corpuscular Volume 88 fL Mean Corpuscular Hemoglobin 28 pg Mean Corpuscular Hemoglobin Concent 32 g/dL Red Cell Distribution Width 15.0 % Platelet Count 119 x10^3/uL Neutrophils (%) (Auto) 76 % Lymphocytes (%) (Auto) 15 % Monocytes (%) (Auto) 5 % Eosinophils (%) (Auto) 3 % Basophils (%) (Auto) 0 % Neutrophils # (Auto) 3.7 x10^3uL Lymphocytes # (Auto) 0.8 x10^3/uL Monocytes # (Auto) 0.3 x10^3/uL Eosinophils # (Auto) 0.2 x10^3/uL Basophils # (Auto) 0.0 x10^3/uL Sodium Level 145 mmol/L Potassium Level 3.5 mmol/L Chloride Level 109 mmol/L Carbon Dioxide Level 25 mmol/L Anion Gap 11 Blood Urea Nitrogen 43 mg/dL Creatinine 1.9 mg/dL Estimated GFR (Cockcroft-Gault) 33.9 Glucose Level 83 mg/dL Lactic Acid Level 0.8 mmol/L Calcium Level 7.9 mg/dL Current Medications Medications (Trade) Dose Ordered Sig/Kwame Route PRN Reason Start Time Stop Time Status Last Admin Dose Admin Acetaminophen (Tylenol) 650 mg PRN Q6HRS PRN PO MILD PAIN / TEMP > 100.3'F 11/16/20 12:15 Multi-Ingredient Ointment (Analgesic [place]) 1 gokul PRN QID PRN TP MUSCLE PAIN 11/16/20 12:15 Al Hydroxide/Mg Hydroxide (Mylanta Plus Xs) 15 ml PRN AFTMEALHC PRN PO DYSPEPSIA 11/16/20 12:15 Magnesium Hydroxide (Milk Of Magnesia) 2,400 mg PRN QHS PRN PO CONSTIPATION 11/16/20 12:15 Allopurinol (Zyloprim) 100 mg DAILY PO 11/17/20 09:00 11/27/20 10:33 Amlodipine Besylate (Norvasc) 10 mg DAILY PO 11/17/20 09:00 11/25/20 18:11 DC 11/25/20 08:21 Donepezil HCl (Aricept) 10 mg DAILY PO 11/17/20 09:00 11/17/20 17:57 DC Famotidine (Pepcid) 10 mg DAILY PO 11/17/20 09:00 11/27/20 10:33 Finasteride (Proscar) 5 mg DAILY PO 11/17/20 09:00 11/27/20 10:32 Furosemide (Lasix) 20 mg DAILY PO 11/17/20 09:00 11/21/20 17:08 DC 11/21/20 09:37 Metoprolol Tartrate (Lopressor) 37.5 mg BID PO 11/16/20 21:00 11/25/20 18:11 DC 11/25/20 08:21 Ropinirole HCl (Requip) 1 mg DAILY PO 11/17/20 09:00 11/18/20 18:19 DC 11/18/20 08:23 Tamsulosin HCl (Flomax) 0.4 mg DAILY PO 11/17/20 09:00 11/27/20 10:32 Apixaban (Eliquis) 2.5 mg BID PO 11/16/20 21:00 11/27/20 20:04 Multivitamins/ Calcium (Thera-M Plus) 1 tab DAILY PO 11/17/20 09:00 11/27/20 10:32 Vitamin D (Vitamin D3) 1,000 unit DAILY PO 11/17/20 09:00 11/27/20 10:25 Olanzapine (ZyPREXA ZYDIS) 2.5 mg PRN Q2HR PRN PO PSYCHOSIS 11/16/20 23:00 11/25/20 21:17 Trazodone HCl (Desyrel) 50 mg PRN QHS PRN PO INSOMNIA, MAY REPEAT X1 11/16/20 23:00 11/25/20 21:17 Rivastigmine (Exelon) 1 patch DAILY TD 11/18/20 09:00 11/24/20 21:00 DC 11/24/20 08:31 Rivastigmine (Exelon) 1 patch DAILY TD 11/25/20 09:00 11/27/20 10:25 Ropinirole HCl (Requip) 0.5 mg TID PO 11/18/20 21:00 11/27/20 20:03 Quetiapine Fumarate (SEROquel) 12.5 mg 0900,1700 PO 11/19/20 12:00 11/23/20 17:59 DC 11/23/20 15:27 Sertraline HCl (Zoloft) 25 mg DAILY PO 11/22/20 09:00 11/24/20 21:00 DC 11/24/20 08:31 Sertraline HCl (Zoloft) 50 mg DAILY PO 11/25/20 08:00 11/26/20 08:58 Mirtazapine (Remeron) 7.5 mg QHS PO 11/22/20 21:00 11/26/20 12:16 DC 11/25/20 19:56 Quetiapine Fumarate (SEROquel) 12.5 mg 0900,1300,1700,2100 PO 11/23/20 21:00 11/27/20 13:18 DC 11/26/20 08:58 Fluticasone Propionate (Flonase) 2 spray DAILY NS 11/25/20 09:00 11/26/20 08:59 Cetirizine HCl (ZyrTEC) 10 mg DAILY PO 11/25/20 09:00 11/27/20 10:25 Amlodipine Besylate (Norvasc) 5 mg DAILY PO 11/25/20 18:15 11/27/20 10:32 Metoprolol Tartrate (Lopressor) 25 mg BID PO 11/25/20 18:15 11/27/20 20:03 Mirtazapine (Remeron) 15 mg QHS PO 11/26/20 21:00 11/27/20 20:04 Dextrose/Sodium Chloride 1,000 ml @ 100 mls/hr Q10H IV 11/26/20 17:45 11/26/20 18:23 DC Dextrose 1,000 ml @ 75 mls/hr [id number] IV 11/26/20 18:30 11/27/20 20:05 DC 11/26/20 18:29 I have reviewed the current psychotropics carefully including drug interactions. Risk benefit ratio favors no change other than as noted in my dictated progress note. 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
[2020-11-28 05:53] VITALS: BP 95/65
[2020-11-28] MEDS: RIVASTIGMINE 9.5MG PATCH. TD SCH (08:13)
[2020-11-28] MEDS: amLODIPine BESYLATE 5 MG TABLET PO SCH (08:14)
[2020-11-28] MEDS: ALLOPURINOL 100 MG TABLET. PO SCH (08:14)
[2020-11-28] MEDS: TAMSULOSIN 0.4 MG CAP.ER.24H. PO SCH (08:14)
[2020-11-28] MEDS: FINASTERIDE 5 MG TABLET. PO SCH (08:14)
[2020-11-28] MEDS: APIXABAN 2.5 MG TABLET PO SCH ×2 (08:15→20:06)
[2020-11-28] MEDS: rOPINIRole 0.5 MG TABLET. PO SCH ×3 (08:15→20:05)
[2020-11-28] MEDS: FAMOTIDINE 20 MG TABLET PO SCH (08:15)
[2020-11-28] MEDS: CHOLECALCIFEROL (VITAMIN D3) 1,000 UNIT TABLET PO SCH (08:15)
[2020-11-28] MEDS: SERTRALINE 50 MG TABLET. PO SCH (08:15)
[2020-11-28] MEDS: METOPROLOL TART IMMED RELEASE 25 MG TABLET. PO SCH ×2 (08:15→20:06)
[2020-11-28] MEDS: MULTIVITAMIN with MINERAL TABLET. PO SCH (08:15)
[2020-11-28] MEDS: CETIRIZINE HCL 10 MG TABLET PO SCH (08:15)
--- NOTE | 2020-11-28 08:58 | PDOC ---
Exam Note: Chaitanya Note: This note is a late entry for 11/27/2020 covers elements not covered in my initial note. Subjective The patient was seen individually in the evening of 11/27/2020 with Leydi PENNY, discussed and reviewed the chart. He slept 8-1/2 hours previous night. The patient has completed IV fluids. Chest x-ray today was negative. UA unremarkable. He was incontinent of stool earlier in the morning, little less confused. Review of Systems: No CV, , pulmonary, eye, ENT system symptoms on review. Reliability poor. Mental Status Exam: The patient is oriented to himself. Insight and judgement, recent and remote memory, attention and concentration, fund of knowledge is poor consistent with his diagnoses. As I came to visit him, he was in the dayroom. He promptly stood up from his chair but was a little unsteady on his feet. No suicidal or homicidal ideation. Laboratory Data: Reviewed. 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 Anxiety disorder unspecified. Impulse control disorder unspecified. Plan: We will defer medical management to Dr. Wray. Discontinue the Seroquel since family felt it is worsening his cognition. Maintain rest of the psychotropics unchanged. Assessment: Vital Signs/I&O: Vital Signs Date Time Temp Pulse Resp B/P (MAP) Pulse Ox O2 Delivery O2 Flow Rate FiO2 11/28/20 08:15 50 95/65 11/28/20 05:53 96.9 18 95 11/27/20 06:07 Room Air I & O 11/27/20 11/27/20 11/28/20 15:00 23:00 07:00 Intake Total 360 ml 600 ml Balance 360 ml 600 ml Current Medications: Meds: Current Medications Medications (Trade) Dose Ordered Sig/Kwame Route PRN Reason Start Time Stop Time Status Last Admin Dose Admin Acetaminophen (Tylenol) 650 mg PRN Q6HRS PRN PO MILD PAIN / TEMP > 100.3'F 11/16/20 12:15 Multi-Ingredient Ointment (Analgesic [place]) 1 gokul PRN QID PRN TP MUSCLE PAIN 11/16/20 12:15 Al Hydroxide/Mg Hydroxide (Mylanta Plus Xs) 15 ml PRN AFTMEALHC PRN PO DYSPEPSIA 11/16/20 12:15 Magnesium Hydroxide (Milk Of Magnesia) 2,400 mg PRN QHS PRN PO CONSTIPATION 11/16/20 12:15 Allopurinol (Zyloprim) 100 mg DAILY PO 11/17/20 09:00 11/28/20 08:14 Amlodipine Besylate (Norvasc) 10 mg DAILY PO 11/17/20 09:00 11/25/20 18:11 DC 11/25/20 08:21 Donepezil HCl (Aricept) 10 mg DAILY PO 11/17/20 09:00 11/17/20 17:57 DC Famotidine (Pepcid) 10 mg DAILY PO 11/17/20 09:00 11/28/20 08:15 Finasteride (Proscar) 5 mg DAILY PO 11/17/20 09:00 11/28/20 08:14 Furosemide (Lasix) 20 mg DAILY PO 11/17/20 09:00 11/21/20 17:08 DC 11/21/20 09:37 Metoprolol Tartrate (Lopressor) 37.5 mg BID PO 11/16/20 21:00 11/25/20 18:11 DC 11/25/20 08:21 Ropinirole HCl (Requip) 1 mg DAILY PO 11/17/20 09:00 11/18/20 18:19 DC 11/18/20 08:23 Tamsulosin HCl (Flomax) 0.4 mg DAILY PO 11/17/20 09:00 11/28/20 08:14 Apixaban (Eliquis) 2.5 mg BID PO 11/16/20 21:00 11/28/20 08:15 Multivitamins/ Calcium (Thera-M Plus) 1 tab DAILY PO 11/17/20 09:00 11/28/20 08:15 Vitamin D (Vitamin D3) 1,000 unit DAILY PO 11/17/20 09:00 11/28/20 08:15 Olanzapine (ZyPREXA ZYDIS) 2.5 mg PRN Q2HR PRN PO PSYCHOSIS 11/16/20 23:00 11/25/20 21:17 Trazodone HCl (Desyrel) 50 mg PRN QHS PRN PO INSOMNIA, MAY REPEAT X1 11/16/20 23:00 11/25/20 21:17 Rivastigmine (Exelon) 1 patch DAILY TD 3/7/21 09:00 11/24/20 21:00 DC 11/24/20 08:31 Rivastigmine (Exelon) 1 patch DAILY TD 11/25/20 09:00 11/28/20 08:13 Ropinirole HCl (Requip) 0.5 mg TID PO 11/18/20 21:00 11/28/20 08:15 Quetiapine Fumarate (SEROquel) 12.5 mg 0900,1700 PO 11/19/20 12:00 11/23/20 17:59 DC 11/23/20 15:27 Sertraline HCl (Zoloft) 25 mg DAILY PO 11/22/20 09:00 11/24/20 21:00 DC 11/24/20 08:31 Sertraline HCl (Zoloft) 50 mg DAILY PO 11/25/20 08:00 11/28/20 08:15 Mirtazapine (Remeron) 7.5 mg QHS PO 11/22/20 21:00 11/26/20 12:16 DC 11/25/20 19:56 Quetiapine Fumarate (SEROquel) 12.5 mg 0900,1300,1700,2100 PO 11/23/20 21:00 11/27/20 13:18 DC 11/26/20 08:58 Fluticasone Propionate (Flonase) 2 spray DAILY NS 11/25/20 09:00 11/26/20 08:59 Cetirizine HCl (ZyrTEC) 10 mg DAILY PO 11/25/20 09:00 11/28/20 08:15 Amlodipine Besylate (Norvasc) 5 mg DAILY PO 11/25/20 18:15 11/28/20 08:14 Metoprolol Tartrate (Lopressor) 25 mg BID PO 11/25/20 18:15 11/28/20 08:15 Mirtazapine (Remeron) 15 mg QHS PO 11/26/20 21:00 11/27/20 20:04 Dextrose/Sodium Chloride 1,000 ml @ 100 mls/hr Q10H IV 11/26/20 17:45 11/26/20 18:23 DC Dextrose 1,000 ml @ 75 mls/hr [id number] IV 11/26/20 18:30 11/27/20 20:05 DC 11/26/20 18:29 I have reviewed the current psychotropics carefully including drug interactions. Risk benefit ratio favors no change other than as noted in my dictated progress note. 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
[2020-11-28] MEDS: FLUTICASONE 50MCG/NASAL SPRAY 16GM BOTTLE. NS SCH (09:00)
[2020-11-28 15:52] VITALS: BP 127/70
[2020-11-28 19:50] VITALS: BP 135/78
[2020-11-28] MEDS: MIRTAZAPINE 15 MG TABLET PO SCH (20:06)
--- NOTE | 2020-11-28 22:06 | PDOC ---
Exam Note: Chaitanya Note: Please also refer to the separate dictated note~for this date of service dictated separately.~Patient seen individually. Discussed the patient with Nursing staff reviewed the chart.~Reviewed interim history and current functioning. Reviewed vital signs,~Labs/ Radiology~and current medications noted below. Continue current treatment with the changes noted in the dictated addendum note Assessment: Vital Signs/I&O: Vital Signs Date Time Temp Pulse Resp B/P (MAP) Pulse Ox O2 Delivery O2 Flow Rate FiO2 11/28/20 20:06 66 135/78 11/28/20 15:52 97.2 16 97 Room Air I & O 11/27/20 11/27/20 11/28/20 15:00 23:00 07:00 Intake Total 360 ml 600 ml Balance 360 ml 600 ml Current Medications: I have reviewed the current psychotropics carefully including drug interactions. Risk benefit ratio favors no change other than as noted in my dictated progress note. 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
[2020-11-28] MEDS: traZODone 50 MG TABLET. PO PRN (23:49)
[2020-11-29] MEDS: traZODone 50 MG TABLET. PO PRN (02:07)
--- NOTE | 2020-11-29 08:28 | PDOC ---
Exam Note: Chaitanya Note: This note is a late entry for 11/28/2020 covers elements not covered in my initial note. Subjective The patient was seen individually in the evening of 11/28/2020 with Gerry PENNY, discussed and reviewed the chart. He slept 5 hours previous night. Appetite is fair. The patient has been more active since Seroquel was discontinued and no overt psychotic symptoms have re-emerged. No aggression. Review of Systems: No CV, , pulmonary, eye, ENT system symptoms on review. Reliability poor. Mental Status Exam: The patient is oriented to himself. Insight and judgement, recent and remote memory, attention and concentration, fund of knowledge is poor consistent with his diagnoses. Laboratory Data: Reviewed. 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 Anxiety disorder unspecified. Impulse control disorder unspecified. Plan: No change from initial note. Assessment: Vital Signs/I&O: Vital Signs Date Time Temp Pulse Resp B/P (MAP) Pulse Ox O2 Delivery O2 Flow Rate FiO2 11/28/20 20:06 66 135/78 11/28/20 15:52 97.2 16 97 Room Air I & O 11/28/20 11/28/20 11/29/20 15:00 23:00 07:00 Intake Total 560 ml 240 ml Balance 560 ml 240 ml Current Medications: Meds: Current Medications Medications (Trade) Dose Ordered Sig/Kwame Route PRN Reason Start Time Stop Time Status Last Admin Dose Admin Acetaminophen (Tylenol) 650 mg PRN Q6HRS PRN PO MILD PAIN / TEMP > 100.3'F 11/16/20 12:15 Multi-Ingredient Ointment (Analgesic [place]) 1 gokul PRN QID PRN TP MUSCLE PAIN 11/16/20 12:15 Al Hydroxide/Mg Hydroxide (Mylanta Plus Xs) 15 ml PRN AFTMEALHC PRN PO DYSPEPSIA 11/16/20 12:15 Magnesium Hydroxide (Milk Of Magnesia) 2,400 mg PRN QHS PRN PO CONSTIPATION 11/16/20 12:15 Allopurinol (Zyloprim) 100 mg DAILY PO 11/17/20 09:00 11/28/20 08:14 Amlodipine Besylate (Norvasc) 10 mg DAILY PO 11/17/20 09:00 11/25/20 18:11 DC 3/14/21 08:21 Donepezil HCl (Aricept) 10 mg DAILY PO 11/17/20 09:00 11/17/20 17:57 DC Famotidine (Pepcid) 10 mg DAILY PO 11/17/20 09:00 11/28/20 08:15 Finasteride (Proscar) 5 mg DAILY PO 11/17/20 09:00 11/28/20 08:14 Furosemide (Lasix) 20 mg DAILY PO 11/17/20 09:00 11/21/20 17:08 DC 11/21/20 09:37 Metoprolol Tartrate (Lopressor) 37.5 mg BID PO 11/16/20 21:00 11/25/20 18:11 DC 11/25/20 08:21 Ropinirole HCl (Requip) 1 mg DAILY PO 11/17/20 09:00 11/18/20 18:19 DC 11/18/20 08:23 Tamsulosin HCl (Flomax) 0.4 mg DAILY PO 11/17/20 09:00 11/28/20 08:14 Apixaban (Eliquis) 2.5 mg BID PO 11/16/20 21:00 11/28/20 20:06 Multivitamins/ Calcium (Thera-M Plus) 1 tab DAILY PO 11/17/20 09:00 11/28/20 08:15 Vitamin D (Vitamin D3) 1,000 unit DAILY PO 11/17/20 09:00 11/28/20 08:15 Olanzapine (ZyPREXA ZYDIS) 2.5 mg PRN Q2HR PRN PO PSYCHOSIS 11/16/20 23:00 11/29/20 02:07 Trazodone HCl (Desyrel) 50 mg PRN QHS PRN PO INSOMNIA, MAY REPEAT X1 11/16/20 23:00 11/29/20 02:07 Rivastigmine (Exelon) 1 patch DAILY TD 11/18/20 09:00 11/24/20 21:00 DC 11/24/20 08:31 Rivastigmine (Exelon) 1 patch DAILY TD 11/25/20 09:00 11/28/20 08:13 Ropinirole HCl (Requip) 0.5 mg TID PO 11/18/20 21:00 11/28/20 20:05 Quetiapine Fumarate (SEROquel) 12.5 mg 0900,1700 PO 11/19/20 12:00 11/23/20 17:59 DC 11/23/20 15:27 Sertraline HCl (Zoloft) 25 mg DAILY PO 11/22/20 09:00 11/24/20 21:00 DC 11/24/20 08:31 Sertraline HCl (Zoloft) 50 mg DAILY PO 11/25/20 08:00 11/28/20 08:15 Mirtazapine (Remeron) 7.5 mg QHS PO 11/22/20 21:00 11/26/20 12:16 DC 11/25/20 19:56 Quetiapine Fumarate (SEROquel) 12.5 mg 0900,1300,1700,2100 PO 11/23/20 21:00 11/27/20 13:18 DC 11/26/20 08:58 Fluticasone Propionate (Flonase) 2 spray DAILY NS 11/25/20 09:00 11/26/20 08:59 Cetirizine HCl (ZyrTEC) 10 mg DAILY PO 11/25/20 09:00 11/28/20 08:15 Amlodipine Besylate (Norvasc) 5 mg DAILY PO 11/25/20 18:15 11/28/20 08:14 Metoprolol Tartrate (Lopressor) 25 mg BID PO 11/25/20 18:15 11/28/20 20:06 Mirtazapine (Remeron) 15 mg QHS PO 11/26/20 21:00 11/28/20 20:06 Dextrose/Sodium Chloride 1,000 ml @ 100 mls/hr Q10H IV 11/26/20 17:45 11/26/20 18:23 DC Dextrose 1,000 ml @ 75 mls/hr [id number] IV 11/26/20 18:30 11/27/20 20:05 DC 11/26/20 18:29 I have reviewed the current psychotropics carefully including drug interactions. Risk benefit ratio favors no change other than as noted in my dictated progress note. 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
[2020-11-29] MEDS: CHOLECALCIFEROL (VITAMIN D3) 1,000 UNIT TABLET PO SCH (13:13)
[2020-11-29] MEDS: ALLOPURINOL 100 MG TABLET. PO SCH (13:13)
[2020-11-29] MEDS: amLODIPine BESYLATE 5 MG TABLET PO SCH (13:14)
[2020-11-29] MEDS: FINASTERIDE 5 MG TABLET. PO SCH (13:14)
[2020-11-29] MEDS: FAMOTIDINE 20 MG TABLET PO SCH (13:14)
[2020-11-29] MEDS: METOPROLOL TART IMMED RELEASE 25 MG TABLET. PO SCH ×2 (13:14→19:51)
[2020-11-29] MEDS: TAMSULOSIN 0.4 MG CAP.ER.24H. PO SCH (13:15)
[2020-11-29] MEDS: APIXABAN 2.5 MG TABLET PO SCH ×2 (13:15→19:51)
[2020-11-29] MEDS: RIVASTIGMINE 9.5MG PATCH. TD SCH (13:15)
[2020-11-29] MEDS: rOPINIRole 0.5 MG TABLET. PO SCH ×3 (13:15→19:51)
[2020-11-29] MEDS: FLUTICASONE 50MCG/NASAL SPRAY 16GM BOTTLE. NS SCH (13:15)
[2020-11-29] MEDS: SERTRALINE 50 MG TABLET. PO SCH (13:15)
[2020-11-29] MEDS: CETIRIZINE HCL 10 MG TABLET PO SCH (13:15)
[2020-11-29] MEDS: MULTIVITAMIN with MINERAL TABLET. PO SCH (13:15)
[2020-11-29 16:03] VITALS: BP 152/81
[2020-11-29] MEDS ORDERED: MELATONIN 3 MG TABLET PO PRN (18:15)
[2020-11-29] MEDS: MIRTAZAPINE 15 MG TABLET PO SCH (19:51)
[2020-11-29] MEDS: MELATONIN 3 MG TABLET PO SCH (21:00)
--- NOTE | 2020-11-29 21:27 | PDOC ---
Exam Note: Chaitanya Note: Please also refer to the separate dictated note~for this date of service dictated separately.~Patient seen individually. Discussed the patient with Nursing staff reviewed the chart.~Reviewed interim history and current functioning. Reviewed vital signs,~Labs/ Radiology~and current medications noted below. Continue current treatment with the changes noted in the dictated addendum note Assessment: Vital Signs/I&O: Vital Signs Date Time Temp Pulse Resp B/P (MAP) Pulse Ox O2 Delivery O2 Flow Rate FiO2 11/29/20 19:51 60 152/81 11/29/20 16:03 97.2 20 96 Room Air I & O 11/28/20 11/28/20 11/29/20 15:00 23:00 07:00 Intake Total 560 ml 240 ml Balance 560 ml 240 ml Current Medications: Meds: Current Medications Medications (Trade) Dose Ordered Sig/Kwame Route PRN Reason Start Time Stop Time Status Last Admin Dose Admin Acetaminophen (Tylenol) 650 mg PRN Q6HRS PRN PO MILD PAIN / TEMP > 100.3'F 11/16/20 12:15 Multi-Ingredient Ointment (Analgesic [place]) 1 gokul PRN QID PRN TP MUSCLE PAIN 11/16/20 12:15 Al Hydroxide/Mg Hydroxide (Mylanta Plus Xs) 15 ml PRN AFTMEALHC PRN PO DYSPEPSIA 11/16/20 12:15 Magnesium Hydroxide (Milk Of Magnesia) 2,400 mg PRN QHS PRN PO CONSTIPATION 11/16/20 12:15 Allopurinol (Zyloprim) 100 mg DAILY PO 11/17/20 09:00 11/29/20 13:13 Amlodipine Besylate (Norvasc) 10 mg DAILY PO 11/17/20 09:00 11/25/20 18:11 DC 11/25/20 08:21 Donepezil HCl (Aricept) 10 mg DAILY PO 11/17/20 09:00 11/17/20 17:57 DC Famotidine (Pepcid) 10 mg DAILY PO 11/17/20 09:00 11/29/20 13:14 Finasteride (Proscar) 5 mg DAILY PO 11/17/20 09:00 11/29/20 13:14 Furosemide (Lasix) 20 mg DAILY PO 11/17/20 09:00 11/21/20 17:08 DC 11/21/20 09:37 Metoprolol Tartrate (Lopressor) 37.5 mg BID PO 11/16/20 21:00 11/25/20 18:11 DC 11/25/20 08:21 Ropinirole HCl (Requip) 1 mg DAILY PO 11/17/20 09:00 11/18/20 18:19 DC 11/18/20 08:23 Tamsulosin HCl (Flomax) 0.4 mg DAILY PO 11/17/20 09:00 11/29/20 13:15 Apixaban (Eliquis) 2.5 mg BID PO 11/16/20 21:00 11/29/20 19:51 Multivitamins/ Calcium (Thera-M Plus) 1 tab DAILY PO 11/17/20 09:00 11/29/20 13:15 Vitamin D (Vitamin D3) 1,000 unit DAILY PO 11/17/20 09:00 11/29/20 13:13 Olanzapine (ZyPREXA ZYDIS) 2.5 mg PRN Q2HR PRN PO PSYCHOSIS 11/16/20 23:00 11/29/20 02:07 Trazodone HCl (Desyrel) 50 mg PRN QHS PRN PO INSOMNIA, MAY REPEAT X1 11/16/20 23:00 11/29/20 02:07 Rivastigmine (Exelon) 1 patch DAILY TD 11/18/20 09:00 11/24/20 21:00 DC 11/24/20 08:31 Rivastigmine (Exelon) 1 patch DAILY TD 11/25/20 09:00 11/29/20 13:15 Ropinirole HCl (Requip) 0.5 mg TID PO 11/18/20 21:00 11/29/20 19:51 Quetiapine Fumarate (SEROquel) 12.5 mg 0900,1700 PO 11/19/20 12:00 11/23/20 17:59 DC 11/23/20 15:27 Sertraline HCl (Zoloft) 25 mg DAILY PO 11/22/20 09:00 11/24/20 21:00 DC 11/24/20 08:31 Sertraline HCl (Zoloft) 50 mg DAILY PO 11/25/20 08:00 11/29/20 13:15 Mirtazapine (Remeron) 7.5 mg QHS PO 11/22/20 21:00 11/26/20 12:16 DC 11/25/20 19:56 Quetiapine Fumarate (SEROquel) 12.5 mg 0900,1300,1700,2100 PO 11/23/20 21:00 11/27/20 13:18 DC 11/26/20 08:58 Fluticasone Propionate (Flonase) 2 spray DAILY NS 11/25/20 09:00 11/29/20 13:15 Cetirizine HCl (ZyrTEC) 10 mg DAILY PO 11/25/20 09:00 11/29/20 13:15 Amlodipine Besylate (Norvasc) 5 mg DAILY PO 11/25/20 18:15 11/29/20 13:14 Metoprolol Tartrate (Lopressor) 25 mg BID PO 11/25/20 18:15 11/29/20 19:51 Mirtazapine (Remeron) 15 mg QHS PO 11/26/20 21:00 11/29/20 19:51 Dextrose/Sodium Chloride 1,000 ml @ 100 mls/hr Q10H IV 11/26/20 17:45 11/26/20 18:23 DC Dextrose 1,000 ml @ 75 mls/hr [id number] IV 11/26/20 18:30 11/27/20 20:05 DC 11/26/20 18:29 Melatonin (Melatonin) 3 mg PRN QHS PRN PO INSOMNIA 11/29/20 18:15 Melatonin (Melatonin) 3 mg QHS PO 11/29/20 21:00 I have reviewed the current psychotropics carefully including drug interactions. Risk benefit ratio favors no change other than as noted in my dictated progress note. 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
[2020-11-30] MEDS: traZODone 50 MG TABLET. PO PRN (00:30)
[2020-11-30 05:54] VITALS: BP 154/90
[2020-11-30] MEDS: FLUTICASONE 50MCG/NASAL SPRAY 16GM BOTTLE. NS SCH (09:00)
--- NOTE | 2020-11-30 09:13 | PDOC ---
Exam Note: Chaitanya Note: This note is a late entry for 11/29/2020 covers elements not covered in my initial note. Subjective The patient was seen individually in the evening of 11/29/2020 with Gerry PENNY, discussed and reviewed the chart. He slept 1-1/4 hours previous night. He slept less than 2 hours previous night. He was agitated at night, received Zyprexa at 2350 hours and 2 a.m. He slept through this morning. We will add melatonin 3 mg h.s. p.r.n. insomnia, may repeat x1. Review of Systems: No CV, , pulmonary, eye, ENT system symptoms on review. Reliability poor. Gait unsteady, grabbing at things in front of him and nothing is there. Mental Status Exam: The patient is oriented to himself. Insight and judgement, recent and remote memory, attention and concentration, fund of knowledge is poor consistent with his diagnoses. Laboratory Data: Reviewed. 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 Anxiety disorder unspecified. Impulse control disorder unspecified. Plan: Start melatonin at noted. Rest unchanged for now. Assessment: Vital Signs/I&O: Vital Signs Date Time Temp Pulse Resp B/P (MAP) Pulse Ox O2 Delivery O2 Flow Rate FiO2 11/30/20 05:54 97.0 98 16 154/90 (111) 95 11/29/20 16:03 Room Air I & O 11/29/20 11/29/20 11/30/20 15:00 23:00 07:00 Intake Total 200 ml 360 ml Balance 200 ml 360 ml Current Medications: Meds: Current Medications Medications (Trade) Dose Ordered Sig/Kwame Route PRN Reason Start Time Stop Time Status Last Admin Dose Admin Acetaminophen (Tylenol) 650 mg PRN Q6HRS PRN PO MILD PAIN / TEMP > 100.3'F 11/16/20 12:15 Multi-Ingredient Ointment (Analgesic [place]) 1 gokul PRN QID PRN TP MUSCLE PAIN 11/16/20 12:15 Al Hydroxide/Mg Hydroxide (Mylanta Plus Xs) 15 ml PRN AFTMEALHC PRN PO DYSPEPSIA 11/16/20 12:15 Magnesium Hydroxide (Milk Of Magnesia) 2,400 mg PRN QHS PRN PO CONSTIPATION 11/16/20 12:15 Allopurinol (Zyloprim) 100 mg DAILY PO 11/17/20 09:00 11/29/20 13:13 Amlodipine Besylate (Norvasc) 10 mg DAILY PO 11/17/20 09:00 11/25/20 18:11 DC 11/25/20 08:21 Donepezil HCl (Aricept) 10 mg DAILY PO 11/17/20 09:00 11/17/20 17:57 DC Famotidine (Pepcid) 10 mg DAILY PO 11/17/20 09:00 11/29/20 13:14 Finasteride (Proscar) 5 mg DAILY PO 11/17/20 09:00 11/29/20 13:14 Furosemide (Lasix) 20 mg DAILY PO 11/17/20 09:00 11/21/20 17:08 DC 11/21/20 09:37 Metoprolol Tartrate (Lopressor) 37.5 mg BID PO 11/16/20 21:00 11/25/20 18:11 DC 11/25/20 08:21 Ropinirole HCl (Requip) 1 mg DAILY PO 11/17/20 09:00 11/18/20 18:19 DC 11/18/20 08:23 Tamsulosin HCl (Flomax) 0.4 mg DAILY PO 11/17/20 09:00 11/29/20 13:15 Apixaban (Eliquis) 2.5 mg BID PO 11/16/20 21:00 11/29/20 19:51 Multivitamins/ Calcium (Thera-M Plus) 1 tab DAILY PO 11/17/20 09:00 11/29/20 13:15 Vitamin D (Vitamin D3) 1,000 unit DAILY PO 11/17/20 09:00 11/29/20 13:13 Olanzapine (ZyPREXA ZYDIS) 2.5 mg PRN Q2HR PRN PO PSYCHOSIS 11/16/20 23:00 11/30/20 00:32 Trazodone HCl (Desyrel) 50 mg PRN QHS PRN PO INSOMNIA, MAY REPEAT X1 11/16/20 23:00 11/30/20 00:30 Rivastigmine (Exelon) 1 patch DAILY TD 11/18/20 09:00 11/24/20 21:00 DC 11/24/20 08:31 Rivastigmine (Exelon) 1 patch DAILY TD 11/25/20 09:00 11/29/20 13:15 Ropinirole HCl (Requip) 0.5 mg TID PO 11/18/20 21:00 11/29/20 19:51 Quetiapine Fumarate (SEROquel) 12.5 mg 0900,1700 PO 11/19/20 12:00 11/23/20 17:59 DC 11/23/20 15:27 Sertraline HCl (Zoloft) 25 mg DAILY PO 11/22/20 09:00 11/24/20 21:00 DC 11/24/20 08:31 Sertraline HCl (Zoloft) 50 mg DAILY PO 11/25/20 08:00 11/29/20 13:15 Mirtazapine (Remeron) 7.5 mg QHS PO 11/22/20 21:00 11/26/20 12:16 DC 11/25/20 19:56 Quetiapine Fumarate (SEROquel) 12.5 mg 0900,1300,1700,2100 PO 11/23/20 21:00 11/27/20 13:18 DC 11/26/20 08:58 Fluticasone Propionate (Flonase) 2 spray DAILY NS 11/25/20 09:00 11/29/20 13:15 Cetirizine HCl (ZyrTEC) 10 mg DAILY PO 11/25/20 09:00 11/29/20 13:15 Amlodipine Besylate (Norvasc) 5 mg DAILY PO 11/25/20 18:15 11/29/20 13:14 Metoprolol Tartrate (Lopressor) 25 mg BID PO 11/25/20 18:15 11/29/20 19:51 Mirtazapine (Remeron) 15 mg QHS PO 11/26/20 21:00 11/29/20 19:51 Dextrose/Sodium Chloride 1,000 ml @ 100 mls/hr Q10H IV 11/26/20 17:45 11/26/20 18:23 DC Dextrose 1,000 ml @ 75 mls/hr [id number] IV 11/26/20 18:30 11/27/20 20:05 DC 11/26/20 18:29 Melatonin (Melatonin) 3 mg PRN QHS PRN PO INSOMNIA 11/29/20 18:15 Melatonin (Melatonin) 3 mg QHS PO 11/29/20 21:00 11/29/20 21:00 Current Medications Medications (Trade) Dose Ordered Sig/Kwame Route PRN Reason Start Time Stop Time Status Last Admin Dose Admin Melatonin (Melatonin) 3 mg QHS PO 11/29/20 21:00 11/29/20 21:00 I have reviewed the current psychotropics carefully including drug interactions. Risk benefit ratio favors no change other than as noted in my dictated progress note. 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
[2020-11-30] MEDS: rOPINIRole 0.5 MG TABLET. PO SCH ×3 (10:51→20:03)
[2020-11-30] MEDS: CETIRIZINE HCL 10 MG TABLET PO SCH (10:52)
[2020-11-30] MEDS: FINASTERIDE 5 MG TABLET. PO SCH (10:52)
[2020-11-30] MEDS: TAMSULOSIN 0.4 MG CAP.ER.24H. PO SCH (10:52)
[2020-11-30] MEDS: FAMOTIDINE 20 MG TABLET PO SCH (10:52)
[2020-11-30] MEDS: CHOLECALCIFEROL (VITAMIN D3) 1,000 UNIT TABLET PO SCH (10:52)
[2020-11-30] MEDS: APIXABAN 2.5 MG TABLET PO SCH ×2 (10:53→20:02)
[2020-11-30] MEDS: MULTIVITAMIN with MINERAL TABLET. PO SCH (10:53)
[2020-11-30] MEDS: SERTRALINE 50 MG TABLET. PO SCH (10:53)
[2020-11-30] MEDS: METOPROLOL TART IMMED RELEASE 25 MG TABLET. PO SCH ×2 (10:53→20:02)
[2020-11-30] MEDS: ALLOPURINOL 100 MG TABLET. PO SCH (10:53)
[2020-11-30] MEDS: amLODIPine BESYLATE 5 MG TABLET PO SCH (10:54)
[2020-11-30] MEDS: RIVASTIGMINE 9.5MG PATCH. TD SCH (10:55)
[2020-11-30 15:45] VITALS: BP 94/60
[2020-11-30 17:30] VITALS: BP 120/61
[2020-11-30] MEDS: MIRTAZAPINE 15 MG TABLET PO SCH (20:03)
[2020-11-30] MEDS: MELATONIN 3 MG TABLET PO SCH (20:03)
--- NOTE | 2020-11-30 22:04 | PDOC ---
Exam Note: Chaitanya Note: Please also refer to the separate dictated note~for this date of service dictated separately.~Patient seen individually. Discussed the patient with Nursing staff reviewed the chart.~Reviewed interim history and current functioning. Reviewed vital signs,~Labs/ Radiology~and current medications noted below. Continue current treatment with the changes noted in the dictated addendum note Assessment: Vital Signs/I&O: Vital Signs Date Time Temp Pulse Resp B/P (MAP) Pulse Ox O2 Delivery O2 Flow Rate FiO2 11/30/20 20:02 58 120/61 11/30/20 15:45 97.2 16 94 Room Air I & O 11/29/20 11/29/20 11/30/20 15:00 23:00 07:00 Intake Total 200 ml 360 ml Balance 200 ml 360 ml Current Medications: Meds: Current Medications Medications (Trade) Dose Ordered Sig/Kwame Route PRN Reason Start Time Stop Time Status Last Admin Dose Admin Acetaminophen (Tylenol) 650 mg PRN Q6HRS PRN PO MILD PAIN / TEMP > 100.3'F 11/16/20 12:15 Multi-Ingredient Ointment (Analgesic [place]) 1 gokul PRN QID PRN TP MUSCLE PAIN 11/16/20 12:15 Al Hydroxide/Mg Hydroxide (Mylanta Plus Xs) 15 ml PRN AFTMEALHC PRN PO DYSPEPSIA 11/16/20 12:15 Magnesium Hydroxide (Milk Of Magnesia) 2,400 mg PRN QHS PRN PO CONSTIPATION 11/16/20 12:15 Allopurinol (Zyloprim) 100 mg DAILY PO 11/17/20 09:00 11/30/20 10:53 Amlodipine Besylate (Norvasc) 10 mg DAILY PO 11/17/20 09:00 11/25/20 18:11 DC 11/25/20 08:21 Donepezil HCl (Aricept) 10 mg DAILY PO 11/17/20 09:00 11/17/20 17:57 DC Famotidine (Pepcid) 10 mg DAILY PO 11/17/20 09:00 11/30/20 10:52 Finasteride (Proscar) 5 mg DAILY PO 11/17/20 09:00 11/30/20 10:52 Furosemide (Lasix) 20 mg DAILY PO 11/17/20 09:00 11/21/20 17:08 DC 11/21/20 09:37 Metoprolol Tartrate (Lopressor) 37.5 mg BID PO 11/16/20 21:00 11/25/20 18:11 DC 11/25/20 08:21 Ropinirole HCl (Requip) 1 mg DAILY PO 11/17/20 09:00 11/18/20 18:19 DC 11/18/20 08:23 Tamsulosin HCl (Flomax) 0.4 mg DAILY PO 11/17/20 09:00 11/30/20 10:52 Apixaban (Eliquis) 2.5 mg BID PO 11/16/20 21:00 11/30/20 20:02 Multivitamins/ Calcium (Thera-M Plus) 1 tab DAILY PO 11/17/20 09:00 11/30/20 10:53 Vitamin D (Vitamin D3) 1,000 unit DAILY PO 11/17/20 09:00 11/30/20 10:52 Olanzapine (ZyPREXA ZYDIS) 2.5 mg PRN Q2HR PRN PO PSYCHOSIS 11/16/20 23:00 11/30/20 00:32 Trazodone HCl (Desyrel) 50 mg PRN QHS PRN PO INSOMNIA, MAY REPEAT X1 11/16/20 23:00 11/30/20 00:30 Rivastigmine (Exelon) 1 patch DAILY TD 11/18/20 09:00 11/24/20 21:00 DC 11/24/20 08:31 Rivastigmine (Exelon) 1 patch DAILY TD 11/25/20 09:00 11/30/20 10:55 Ropinirole HCl (Requip) 0.5 mg TID PO 11/18/20 21:00 11/30/20 20:03 Quetiapine Fumarate (SEROquel) 12.5 mg 0900,1700 PO 11/19/20 12:00 11/23/20 17:59 DC 11/23/20 15:27 Sertraline HCl (Zoloft) 25 mg DAILY PO 11/22/20 09:00 11/24/20 21:00 DC 11/24/20 08:31 Sertraline HCl (Zoloft) 50 mg DAILY PO 11/25/20 08:00 11/30/20 10:53 Mirtazapine (Remeron) 7.5 mg QHS PO 11/22/20 21:00 11/26/20 12:16 DC 11/25/20 19:56 Quetiapine Fumarate (SEROquel) 12.5 mg 0900,1300,1700,2100 PO 11/23/20 21:00 11/27/20 13:18 DC 11/26/20 08:58 Fluticasone Propionate (Flonase) 2 spray DAILY NS 11/25/20 09:00 11/30/20 09:00 Cetirizine HCl (ZyrTEC) 10 mg DAILY PO 11/25/20 09:00 11/30/20 10:52 Amlodipine Besylate (Norvasc) 5 mg DAILY PO 11/25/20 18:15 11/30/20 10:54 Metoprolol Tartrate (Lopressor) 25 mg BID PO 11/25/20 18:15 11/30/20 10:53 Mirtazapine (Remeron) 15 mg QHS PO 11/26/20 21:00 11/30/20 20:03 Dextrose/Sodium Chloride 1,000 ml @ 100 mls/hr Q10H IV 11/26/20 17:45 11/26/20 18:23 DC Dextrose 1,000 ml @ 75 mls/hr [id number] IV 11/26/20 18:30 11/27/20 20:05 DC 11/26/20 18:29 Melatonin (Melatonin) 3 mg PRN QHS PRN PO INSOMNIA 11/29/20 18:15 Melatonin (Melatonin) 3 mg QHS PO 11/29/20 21:00 11/30/20 20:03 I have reviewed the current psychotropics carefully including drug interactions. Risk benefit ratio favors no change other than as noted in my dictated progress note. 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
[2020-12-01 06:08] VITALS: BP 113/74
[2020-12-01] MEDS: RIVASTIGMINE 9.5MG PATCH. TD SCH (08:51)
[2020-12-01] MEDS: FINASTERIDE 5 MG TABLET. PO SCH (08:52)
[2020-12-01] MEDS: CHOLECALCIFEROL (VITAMIN D3) 1,000 UNIT TABLET PO SCH (08:52)
[2020-12-01] MEDS: FAMOTIDINE 20 MG TABLET PO SCH (08:53)
[2020-12-01] MEDS: TAMSULOSIN 0.4 MG CAP.ER.24H. PO SCH (08:53)
[2020-12-01] MEDS: SERTRALINE 50 MG TABLET. PO SCH (08:53)
[2020-12-01] MEDS: APIXABAN 2.5 MG TABLET PO SCH ×2 (08:53→19:47)
[2020-12-01] MEDS: amLODIPine BESYLATE 5 MG TABLET PO SCH (08:54)
[2020-12-01] MEDS: rOPINIRole 0.5 MG TABLET. PO SCH ×3 (08:54→19:47)
[2020-12-01] MEDS: METOPROLOL TART IMMED RELEASE 25 MG TABLET. PO SCH ×2 (08:55→19:47)
[2020-12-01] MEDS: MULTIVITAMIN with MINERAL TABLET. PO SCH (08:55)
[2020-12-01] MEDS: ALLOPURINOL 100 MG TABLET. PO SCH (08:55)
[2020-12-01] MEDS: CETIRIZINE HCL 10 MG TABLET PO SCH (08:55)
[2020-12-01] MEDS: FLUTICASONE 50MCG/NASAL SPRAY 16GM BOTTLE. NS SCH (09:00)
--- NOTE | 2020-12-01 09:15 | PDOC ---
Exam Note: Chaitanya Note: This note is a late entry for 11/30/2020 covers elements not covered in my initial note. Subjective The patient was seen individually in the evening of 11/30/2020 with Deborah PENNY, discussed and reviewed the chart. He slept 6-3/4 hours previous night. He is somewhat resistive to cares but finally did have a shower today. He was sleepy during the day. Review of Systems: No CV, , pulmonary, eye, ENT system symptoms on review. Mental Status Exam: The patient is oriented to himself. Insight and judgement, recent and remote memory, attention and concentration, fund of knowledge is poor consistent with his diagnoses. Laboratory Data: Reviewed. 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 Anxiety disorder unspecified. Impulse control disorder unspecified. Plan: No change from initial note. We will continue Zoloft, Remeron, melatonin p.r.n., Exelon patch, trazodone p.r.n., Zyprexa p.r.n. Adjust further as clinically indicated. Assessment: Vital Signs/I&O: Vital Signs Date Time Temp Pulse Resp B/P (MAP) Pulse Ox O2 Delivery O2 Flow Rate FiO2 12/01/20 08:55 86 113/74 12/01/20 06:08 97.9 16 96 11/30/20 15:45 Room Air I & O 0 11/30/20 11/30/20 12/01/20 15:00 23:00 07:00 Intake Total 0 ml 120 ml Balance 0 ml 120 ml Current Medications: Meds: Current Medications Medications (Trade) Dose Ordered Sig/Kwame Route PRN Reason Start Time Stop Time Status Last Admin Dose Admin Acetaminophen (Tylenol) 650 mg PRN Q6HRS PRN PO MILD PAIN / TEMP > 100.3'F 11/16/20 12:15 Multi-Ingredient Ointment (Analgesic [place]) 1 gokul PRN QID PRN TP MUSCLE PAIN 11/16/20 12:15 Al Hydroxide/Mg Hydroxide (Mylanta Plus Xs) 15 ml PRN AFTMEALHC PRN PO DYSPEPSIA 11/16/20 12:15 Magnesium Hydroxide (Milk Of Magnesia) 2,400 mg PRN QHS PRN PO CONSTIPATION 11/16/20 12:15 Allopurinol (Zyloprim) 100 mg DAILY PO 11/17/20 09:00 12/01/20 08:55 Amlodipine Besylate (Norvasc) 10 mg DAILY PO 11/17/20 09:00 11/25/20 18:11 DC 11/25/20 08:21 Donepezil HCl (Aricept) 10 mg DAILY PO 11/17/20 09:00 11/17/20 17:57 DC Famotidine (Pepcid) 10 mg DAILY PO 11/17/20 09:00 12/01/20 08:53 Finasteride (Proscar) 5 mg DAILY PO 11/17/20 09:00 12/01/20 08:52 Furosemide (Lasix) 20 mg DAILY PO 11/17/20 09:00 11/21/20 17:08 DC 11/21/20 09:37 Metoprolol Tartrate (Lopressor) 37.5 mg BID PO 11/16/20 21:00 11/25/20 18:11 DC 11/25/20 08:21 Ropinirole HCl (Requip) 1 mg DAILY PO 11/17/20 09:00 11/18/20 18:19 DC 11/18/20 08:23 Tamsulosin HCl (Flomax) 0.4 mg DAILY PO 11/17/20 09:00 12/01/20 08:53 Apixaban (Eliquis) 2.5 mg BID PO 11/16/20 21:00 12/01/20 08:53 Multivitamins/ Calcium (Thera-M Plus) 1 tab DAILY PO 11/17/20 09:00 12/01/20 08:55 Vitamin D (Vitamin D3) 1,000 unit DAILY PO 11/17/20 09:00 12/01/20 08:52 Olanzapine (ZyPREXA ZYDIS) 2.5 mg PRN Q2HR PRN PO PSYCHOSIS 11/16/20 23:00 11/30/20 00:32 Trazodone HCl (Desyrel) 50 mg PRN QHS PRN PO INSOMNIA, MAY REPEAT X1 11/16/20 23:00 11/30/20 00:30 Rivastigmine (Exelon) 1 patch DAILY TD 11/18/20 09:00 11/24/20 21:00 DC 11/24/20 08:31 Rivastigmine (Exelon) 1 patch DAILY TD 11/25/20 09:00 12/01/20 08:51 Ropinirole HCl (Requip) 0.5 mg TID PO 11/18/20 21:00 12/01/20 08:54 Quetiapine Fumarate (SEROquel) 12.5 mg 0900,1700 PO 11/19/20 12:00 11/23/20 17:59 DC 11/23/20 15:27 Sertraline HCl (Zoloft) 25 mg DAILY PO 11/22/20 09:00 11/24/20 21:00 DC 11/24/20 08:31 Sertraline HCl (Zoloft) 50 mg DAILY PO 11/25/20 08:00 12/01/20 08:53 Mirtazapine (Remeron) 7.5 mg QHS PO 11/22/20 21:00 11/26/20 12:16 DC 11/25/20 19:56 Quetiapine Fumarate (SEROquel) 12.5 mg 0900,1300,1700,2100 PO 11/23/20 21:00 11/27/20 13:18 DC 11/26/20 08:58 Fluticasone Propionate (Flonase) 2 spray DAILY NS 11/25/20 09:00 11/30/20 09:00 Cetirizine HCl (ZyrTEC) 10 mg DAILY PO 11/25/20 09:00 12/01/20 08:55 Amlodipine Besylate (Norvasc) 5 mg DAILY PO 11/25/20 18:15 12/01/20 08:54 Metoprolol Tartrate (Lopressor) 25 mg BID PO 11/25/20 18:15 12/01/20 08:55 Mirtazapine (Remeron) 15 mg QHS PO 11/26/20 21:00 11/30/20 20:03 Dextrose/Sodium Chloride 1,000 ml @ 100 mls/hr Q10H IV 11/26/20 17:45 11/26/20 18:23 DC Dextrose 1,000 ml @ 75 mls/hr [id number] IV 11/26/20 18:30 11/27/20 20:05 DC 11/26/20 18:29 Melatonin (Melatonin) 3 mg PRN QHS PRN PO INSOMNIA 11/29/20 18:15 Melatonin (Melatonin) 3 mg QHS PO 11/29/20 21:00 11/30/20 20:03 I have reviewed the current psychotropics carefully including drug interactions. Risk benefit ratio favors no change other than as noted in my dictated progress note. Diagnosis: Problems: (1) Major neurocognitive disorder (2) Major neurocognitive disorder due to Parkinson's disease with behavioral disturbance (3) Impulse control disorder, unspecified (4) Anxiety disorder, unspecified (5) Dementia, vascular, with depression (6) Dementia, vascular, with delusions (7) Dementia in Alzheimer's disease with depression (8) Dementia in Alzheimer's disease with delusions KASSANDRA TAMAYO MD Dec 01, 2020 09:15
[2020-12-01 15:54] VITALS: BP 97/65
[2020-12-01] MEDS: traZODone 50 MG TABLET. PO PRN (19:47)
[2020-12-01] MEDS: MIRTAZAPINE 15 MG TABLET PO SCH (19:47)
[2020-12-01] MEDS: MELATONIN 3 MG TABLET PO SCH (19:47)
--- NOTE | 2020-12-01 21:25 | PDOC ---
Exam Note: Chaitanya Note: Please also refer to the separate dictated note~for this date of service dictated separately.~Patient seen individually. Discussed the patient with Nursing staff reviewed the chart.~Reviewed interim history and current functioning. Reviewed vital signs,~Labs/ Radiology~and current medications noted below. Continue current treatment with the changes noted in the dictated addendum note Assessment: Vital Signs/I&O: Vital Signs Date Time Temp Pulse Resp B/P (MAP) Pulse Ox O2 Delivery O2 Flow Rate FiO2 12/01/20 19:47 78 97/65 12/01/20 15:54 97.4 18 98 Room Air I & O 11/30/20 11/30/20 12/01/20 15:00 23:00 07:00 Intake Total 0 ml 120 ml Balance 0 ml 120 ml Current Medications: Meds: Current Medications Medications (Trade) Dose Ordered Sig/Kwame Route PRN Reason Start Time Stop Time Status Last Admin Dose Admin Acetaminophen (Tylenol) 650 mg PRN Q6HRS PRN PO MILD PAIN / TEMP > 100.3'F 11/16/20 12:15 Multi-Ingredient Ointment (Analgesic [place]) 1 gokul PRN QID PRN TP MUSCLE PAIN 11/16/20 12:15 Al Hydroxide/Mg Hydroxide (Mylanta Plus Xs) 15 ml PRN AFTMEALHC PRN PO DYSPEPSIA 11/16/20 12:15 Magnesium Hydroxide (Milk Of Magnesia) 2,400 mg PRN QHS PRN PO CONSTIPATION 11/16/20 12:15 Allopurinol (Zyloprim) 100 mg DAILY PO 11/17/20 09:00 12/01/20 08:55 Amlodipine Besylate (Norvasc) 10 mg DAILY PO 11/17/20 09:00 11/25/20 18:11 DC 11/25/20 08:21 Donepezil HCl (Aricept) 10 mg DAILY PO 11/17/20 09:00 11/17/20 17:57 DC Famotidine (Pepcid) 10 mg DAILY PO 11/17/20 09:00 12/01/20 08:53 Finasteride (Proscar) 5 mg DAILY PO 11/17/20 09:00 12/01/20 08:52 Furosemide (Lasix) 20 mg DAILY PO 11/17/20 09:00 11/21/20 17:08 DC 11/21/20 09:37 Metoprolol Tartrate (Lopressor) 37.5 mg BID PO 11/16/20 21:00 11/25/20 18:11 DC 11/25/20 08:21 Ropinirole HCl (Requip) 1 mg DAILY PO 11/17/20 09:00 11/18/20 18:19 DC 11/18/20 08:23 Tamsulosin HCl (Flomax) 0.4 mg DAILY PO 11/17/20 09:00 12/01/20 08:53 Apixaban (Eliquis) 2.5 mg BID PO 11/16/20 21:00 12/01/20 19:47 Multivitamins/ Calcium (Thera-M Plus) 1 tab DAILY PO 11/17/20 09:00 12/01/20 08:55 Vitamin D (Vitamin D3) 1,000 unit DAILY PO 11/17/20 09:00 12/01/20 08:52 Olanzapine (ZyPREXA ZYDIS) 2.5 mg PRN Q2HR PRN PO PSYCHOSIS 11/16/20 23:00 11/30/20 00:32 Trazodone HCl (Desyrel) 50 mg PRN QHS PRN PO INSOMNIA, MAY REPEAT X1 11/16/20 23:00 12/01/20 19:47 Rivastigmine (Exelon) 1 patch DAILY TD 11/18/20 09:00 11/24/20 21:00 DC 11/24/20 08:31 Rivastigmine (Exelon) 1 patch DAILY TD 11/25/20 09:00 12/01/20 08:51 Ropinirole HCl (Requip) 0.5 mg TID PO 11/18/20 21:00 12/01/20 19:47 Quetiapine Fumarate (SEROquel) 12.5 mg 0900,1700 PO 11/19/20 12:00 11/23/20 17:59 DC 11/23/20 15:27 Sertraline HCl (Zoloft) 25 mg DAILY PO 11/22/20 09:00 11/24/20 21:00 DC 11/24/20 08:31 Sertraline HCl (Zoloft) 50 mg DAILY PO 11/25/20 08:00 12/01/20 08:53 Mirtazapine (Remeron) 7.5 mg QHS PO 11/22/20 21:00 11/26/20 12:16 DC 11/25/20 19:56 Quetiapine Fumarate (SEROquel) 12.5 mg 0900,1300,1700,2100 PO 11/23/20 21:00 11/27/20 13:18 DC 11/26/20 08:58 Fluticasone Propionate (Flonase) 2 spray DAILY NS 11/25/20 09:00 12/01/20 09:00 Cetirizine HCl (ZyrTEC) 10 mg DAILY PO 11/25/20 09:00 12/01/20 08:55 Amlodipine Besylate (Norvasc) 5 mg DAILY PO 11/25/20 18:15 12/01/20 08:54 Metoprolol Tartrate (Lopressor) 25 mg BID PO 11/25/20 18:15 12/01/20 08:55 Mirtazapine (Remeron) 15 mg QHS PO 11/26/20 21:00 12/01/20 19:47 Dextrose/Sodium Chloride 1,000 ml @ 100 mls/hr Q10H IV 11/26/20 17:45 11/26/20 18:23 DC Dextrose 1,000 ml @ 75 mls/hr [id number] IV 11/26/20 18:30 11/27/20 20:05 DC 11/26/20 18:29 Melatonin (Melatonin) 3 mg PRN QHS PRN PO INSOMNIA 11/29/20 18:15 Melatonin (Melatonin) 3 mg QHS PO 11/29/20 21:00 12/01/20 19:47 I have reviewed the current psychotropics carefully including drug interactions. Risk benefit ratio favors no change other than as noted in my dictated progress note. 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
[2020-12-02 06:23] VITALS: BP 145/74
[2020-12-02] MEDS: RIVASTIGMINE 9.5MG PATCH. TD SCH (07:49)
[2020-12-02] MEDS: APIXABAN 2.5 MG TABLET PO SCH ×2 (07:49→19:44)
[2020-12-02] MEDS: TAMSULOSIN 0.4 MG CAP.ER.24H. PO SCH (07:49)
[2020-12-02] MEDS: CETIRIZINE HCL 10 MG TABLET PO SCH (07:49)
[2020-12-02] MEDS: SERTRALINE 50 MG TABLET. PO SCH (07:50)
[2020-12-02] MEDS: ALLOPURINOL 100 MG TABLET. PO SCH (07:50)
[2020-12-02] MEDS: CHOLECALCIFEROL (VITAMIN D3) 1,000 UNIT TABLET PO SCH (07:50)
[2020-12-02] MEDS: METOPROLOL TART IMMED RELEASE 25 MG TABLET. PO SCH ×2 (07:50→19:53)
[2020-12-02] MEDS: rOPINIRole 0.5 MG TABLET. PO SCH ×3 (07:50→19:44)
[2020-12-02] MEDS: MULTIVITAMIN with MINERAL TABLET. PO SCH (07:50)
[2020-12-02] MEDS: amLODIPine BESYLATE 5 MG TABLET PO SCH (07:50)
[2020-12-02] MEDS: FLUTICASONE 50MCG/NASAL SPRAY 16GM BOTTLE. NS SCH (07:51)
[2020-12-02] MEDS: FINASTERIDE 5 MG TABLET. PO SCH (07:51)
[2020-12-02] MEDS: FAMOTIDINE 20 MG TABLET PO SCH (07:51)
[2020-12-02] MEDS: MIRTAZAPINE 15 MG TABLET PO SCH (19:44)
[2020-12-02] MEDS: MELATONIN 3 MG TABLET PO SCH (19:44)
[2020-12-02] MEDS: traZODone 50 MG TABLET. PO PRN ×2 (19:48→21:45)
[2020-12-02 19:53] VITALS: BP 107/69
--- NOTE | 2020-12-02 22:03 | PDOC ---
Exam Note: Chaitanya Note: Please also refer to the separate dictated note~for this date of service dictated separately.~Patient seen individually. Discussed the patient with Nursing staff reviewed the chart.~Reviewed interim history and current functioning. Reviewed vital signs,~Labs/ Radiology~and current medications noted below. Continue current treatment with the changes noted in the dictated addendum note Assessment: Vital Signs/I&O: Vital Signs Date Time Temp Pulse Resp B/P (MAP) Pulse Ox O2 Delivery O2 Flow Rate FiO2 12/02/20 19:53 86 107/69 12/02/20 19:53 92 Room Air 12/02/20 06:23 97.4 16 I & O 12/01/20 12/01/20 12/02/20 14:59 22:59 06:59 Intake Total 360 ml 360 ml Balance 360 ml 360 ml Current Medications: Meds: Current Medications Medications (Trade) Dose Ordered Sig/Kwame Route PRN Reason Start Time Stop Time Status Last Admin Dose Admin Acetaminophen (Tylenol) 650 mg PRN Q6HRS PRN PO MILD PAIN / TEMP > 100.3'F 11/16/20 12:15 Multi-Ingredient Ointment (Analgesic [place]) 1 gokul PRN QID PRN TP MUSCLE PAIN 11/16/20 12:15 Al Hydroxide/Mg Hydroxide (Mylanta Plus Xs) 15 ml PRN AFTMEALHC PRN PO DYSPEPSIA 11/16/20 12:15 Magnesium Hydroxide (Milk Of Magnesia) 2,400 mg PRN QHS PRN PO CONSTIPATION 11/16/20 12:15 Allopurinol (Zyloprim) 100 mg DAILY PO 11/17/20 09:00 12/02/20 07:50 Amlodipine Besylate (Norvasc) 10 mg DAILY PO 11/17/20 09:00 11/25/20 18:11 DC 11/25/20 08:21 Donepezil HCl (Aricept) 10 mg DAILY PO 11/17/20 09:00 11/17/20 17:57 DC Famotidine (Pepcid) 10 mg DAILY PO 11/17/20 09:00 12/02/20 07:51 Finasteride (Proscar) 5 mg DAILY PO 11/17/20 09:00 12/02/20 07:51 Furosemide (Lasix) 20 mg DAILY PO 11/17/20 09:00 11/21/20 17:08 DC 11/21/20 09:37 Metoprolol Tartrate (Lopressor) 37.5 mg BID PO 11/16/20 21:00 11/25/20 18:11 DC 11/25/20 08:21 Ropinirole HCl (Requip) 1 mg DAILY PO 11/17/20 09:00 11/18/20 18:19 DC 11/18/20 08:23 Tamsulosin HCl (Flomax) 0.4 mg DAILY PO 11/17/20 09:00 12/02/20 07:49 Apixaban (Eliquis) 2.5 mg BID PO 11/16/20 21:00 12/02/20 19:44 Multivitamins/ Calcium (Thera-M Plus) 1 tab DAILY PO 11/17/20 09:00 12/02/20 07:50 Vitamin D (Vitamin D3) 1,000 unit DAILY PO 11/17/20 09:00 12/02/20 07:50 Olanzapine (ZyPREXA ZYDIS) 2.5 mg PRN Q2HR PRN PO PSYCHOSIS 11/16/20 23:00 11/30/20 00:32 Trazodone HCl (Desyrel) 50 mg PRN QHS PRN PO INSOMNIA, MAY REPEAT X1 11/16/20 23:00 12/02/20 21:45 Rivastigmine (Exelon) 1 patch DAILY TD 11/18/20 09:00 11/24/20 21:00 DC 11/24/20 08:31 Rivastigmine (Exelon) 1 patch DAILY TD 11/25/20 09:00 12/02/20 18:19 DC 12/02/20 07:49 Ropinirole HCl (Requip) 0.5 mg TID PO 11/18/20 21:00 12/02/20 19:44 Quetiapine Fumarate (SEROquel) 12.5 mg 0900,1700 PO 11/19/20 12:00 11/23/20 17:59 DC 11/23/20 15:27 Sertraline HCl (Zoloft) 25 mg DAILY PO 11/22/20 09:00 11/24/20 21:00 DC 11/24/20 08:31 Sertraline HCl (Zoloft) 50 mg DAILY PO 11/25/20 08:00 12/02/20 07:50 Mirtazapine (Remeron) 7.5 mg QHS PO 11/22/20 21:00 11/26/20 12:16 DC 11/25/20 19:56 Quetiapine Fumarate (SEROquel) 12.5 mg 0900,1300,1700,2100 PO 11/23/20 21:00 11/27/20 13:18 DC 11/26/20 08:58 Fluticasone Propionate (Flonase) 2 spray DAILY NS 11/25/20 09:00 12/02/20 07:51 Cetirizine HCl (ZyrTEC) 10 mg DAILY PO 11/25/20 09:00 12/02/20 07:49 Amlodipine Besylate (Norvasc) 5 mg DAILY PO 11/25/20 18:15 12/02/20 07:50 Metoprolol Tartrate (Lopressor) 25 mg BID PO 11/25/20 18:15 12/02/20 19:53 Mirtazapine (Remeron) 15 mg QHS PO 11/26/20 21:00 12/02/20 19:44 Dextrose/Sodium Chloride 1,000 ml @ 100 mls/hr Q10H IV 11/26/20 17:45 11/26/20 18:23 DC Dextrose 1,000 ml @ 75 mls/hr [id number] IV 11/26/20 18:30 11/27/20 20:05 DC 11/26/20 18:29 Melatonin (Melatonin) 3 mg PRN QHS PRN PO INSOMNIA 11/29/20 18:15 12/02/20 21:45 Melatonin (Melatonin) 3 mg QHS PO 11/29/20 21:00 12/02/20 19:44 Rivastigmine (Exelon 13.3mg) 1 patch DAILY TD 12/03/20 09:00 I have reviewed the current psychotropics carefully including drug interactions. Risk benefit ratio favors no change other than as noted in my dictated progress note. 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
[2020-12-03 06:41] VITALS: BP 171/78
[2020-12-03] MEDS: SERTRALINE 50 MG TABLET. PO SCH (08:00)
[2020-12-03] MEDS: CETIRIZINE HCL 10 MG TABLET PO SCH (08:00)
[2020-12-03] MEDS: amLODIPine BESYLATE 5 MG TABLET PO SCH (08:00)
[2020-12-03] MEDS: FAMOTIDINE 20 MG TABLET PO SCH (08:00)
[2020-12-03] MEDS: ALLOPURINOL 100 MG TABLET. PO SCH (08:00)
[2020-12-03] MEDS: MULTIVITAMIN with MINERAL TABLET. PO SCH (08:01)
[2020-12-03] MEDS: METOPROLOL TART IMMED RELEASE 25 MG TABLET. PO SCH ×2 (08:01→20:45)
[2020-12-03] MEDS: rOPINIRole 0.5 MG TABLET. PO SCH ×3 (08:01→20:46)
[2020-12-03] MEDS: FINASTERIDE 5 MG TABLET. PO SCH (08:01)
[2020-12-03] MEDS: TAMSULOSIN 0.4 MG CAP.ER.24H. PO SCH (08:01)
[2020-12-03] MEDS: CHOLECALCIFEROL (VITAMIN D3) 1,000 UNIT TABLET PO SCH (08:01)
[2020-12-03] MEDS: APIXABAN 2.5 MG TABLET PO SCH ×2 (08:01→20:46)
[2020-12-03] MEDS: RIVASTIGMINE 13.3MG PATCH. TD SCH (08:02)
[2020-12-03] MEDS: FLUTICASONE 50MCG/NASAL SPRAY 16GM BOTTLE. NS SCH (08:03)
--- NOTE | 2020-12-03 14:38 | TX PLAN ---
Interdisciplinary Tx Plan Admission Information Nov 16, 2020 at 09:45 Legal Status (on Admission): Voluntary DPOA/Guardian Name: Pennie Galeas Contact Verified Code Status: DNR Allergies: Coded Allergies: acetaminophen (Verified Allergy, Unknown, 11/14/20) fentanyl (Verified Allergy, Unknown, 11/14/20) metoclopramide (Verified Allergy, Unknown, 11/14/20) oxycodone (Verified Allergy, Unknown, 11/14/20) ropinirole (Verified Allergy, Unknown, 11/14/20) Diagnoses Primary Diagnosis: Major Neurocognitive D/O, vascular Alzheimers with delusions, depression and BD. Reasons for Admission: Agitated, Sig. Change Sleep, Hallucinations, Confusion/ Disoriented, Other Problem in Patient's Words: Increasing behaviors that are not manageable at home. Additional Admission Comments: According to the intake, pt is having visual hallucinations (seeing faces), agitated, insomnia, up in the middle of the night (leaving sink on or the fridge open), attempting to leave home at times. Problems Active Problems: Visual hallucinations, agitated, poor sleep restless, combative Inactive Problems: medication compliance Pt Strengths/Limitations Ability for [place]: Poor Cognitive Functioning/Ability: Poor Communication Skills/Ability: Fair Financial Resources: Fair Insight/Judgement: Poor Intellectual Ability: Fair Physical Health: Poor Social Skills: Poor Stability in Family: Excellent Stability in School/Work: Poor Verbal Skills: Fair Discharge Criteria Discharge Criteria: No need for close observ., Adequate arrangements @DC, Improved behavior, Improved mood/thought Preliminary Discharge Plan Preliminary DC Plan: Placement Needed Special Precautions Fall Risk: Moderate Initial D/C Plan Pt is not able to return home; referrals for placement will be needed. Identified Discharge Needs: Referrals for Memory Care Currently Utilized Resources Currently Utilized Resources/P: Primary Care Physician Referrals Community Resources: Family attempting to get [facility] services Identified Problems/Hx/Goals Objectives/Short-Term Goals Short Term Goals: Dec. Hallucination/Delus, Dec. Outbursts, Medication Stabilization Short Term Goals in Patient's: N/A Interventions/Frequency Staff Interventions/Frequency&: Psychiatrist to assess pt at least 3x per week for medication management Social Work to assess pt at least 2x per week to identify barriers to care and final discharge plans/goals. Nursing to assess medication effects, behavior management and completion of 15 minute checks daily. Encourage participation in group activities (if applicable) or 1:1 engagement based of Activity Dept goals. 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 Education: Pt graduated high school from [employer] and attended college at [employer] with a B.S. in Business and minor in Finance. Community Follow-up Primary Care Physician Community Provider/Family Inpu: Getting to be too much for pt to care for at home. Treatment Plan Explained Patient/Certified Medical Coding Specialist had this treatment plan explained to him/her as indicated by the signature below and has been given the opportunity to ask questions and make suggestions: Date: Patient/Certified Medical Coding Specialist Signature: Status Update Update Pt (Pennie) and sons (Trevon and Abdelrahman) participated in tx team via phone. Pt is eatingroughly 75% of meals and sleeping on average 5 hours per night. Pt appears to be less intrusive and more redirectable throughout the day. Pt can be restless but has attending more activities during the week. Pt was reported to be dancing in group and even inventing a dance called the "knee knocker". Pt is calmer with cares and continues to have some hallucinations, letting staff know that he is picking up shotgun shells off the floor. Pt family questioned if pt was ready for next steps in which the team believed that he was. Pt family has requested that send referrals to [facility] and [facility]. SW suggested that the family also look at [facility] for potential placement. SW explained that they will have time to get pt moved and complete the admission process before being able to move pt. Pt family questioned pt diagnosis and if pt would not be getting any extra medication changes. All parties agree that pt appears to be more stable than his admission behaviors. SW will continue to work with the family on sending out referrals and getting discharge plans finalized. ESTELA REDD Dec 03, 2020 14:38
[2020-12-03 15:45] VITALS: BP 123/63
[2020-12-03] MEDS: MIRTAZAPINE 15 MG TABLET PO SCH (20:46)
[2020-12-03] MEDS: MELATONIN 3 MG TABLET PO SCH (20:46)
--- NOTE | 2020-12-03 21:51 | PDOC ---
Exam Note: Chaitanya Note: Please also refer to the separate dictated note~for this date of service dictated separately.~Patient seen individually. Discussed the patient with Nursing staff reviewed the chart.~Reviewed interim history and current functioning. Reviewed vital signs,~Labs/ Radiology~and current medications noted below. Continue current treatment with the changes noted in the dictated addendum note Assessment: Vital Signs/I&O: Vital Signs Date Time Temp Pulse Resp B/P (MAP) Pulse Ox O2 Delivery O2 Flow Rate FiO2 12/03/20 20:45 57 123/63 12/03/20 15:45 97.9 17 100 12/02/20 19:53 Room Air I & O 12/02/20 12/02/20 12/03/20 15:00 23:00 07:00 Intake Total 200 ml 320 ml Balance 200 ml 320 ml Current Medications: Meds: Current Medications Medications (Trade) Dose Ordered Sig/Kwame Route PRN Reason Start Time Stop Time Status Last Admin Dose Admin Acetaminophen (Tylenol) 650 mg PRN Q6HRS PRN PO MILD PAIN / TEMP > 100.3'F 11/16/20 12:15 Multi-Ingredient Ointment (Analgesic [place]) 1 gokul PRN QID PRN TP MUSCLE PAIN 11/16/20 12:15 Al Hydroxide/Mg Hydroxide (Mylanta Plus Xs) 15 ml PRN AFTMEALHC PRN PO DYSPEPSIA 11/16/20 12:15 Magnesium Hydroxide (Milk Of Magnesia) 2,400 mg PRN QHS PRN PO CONSTIPATION 11/16/20 12:15 Allopurinol (Zyloprim) 100 mg DAILY PO 11/17/20 09:00 12/03/20 08:00 Amlodipine Besylate (Norvasc) 10 mg DAILY PO 11/17/20 09:00 11/25/20 18:11 DC 11/25/20 08:21 Donepezil HCl (Aricept) 10 mg DAILY PO 11/17/20 09:00 11/17/20 17:57 DC Famotidine (Pepcid) 10 mg DAILY PO 11/17/20 09:00 12/03/20 08:00 Finasteride (Proscar) 5 mg DAILY PO 11/17/20 09:00 12/03/20 08:01 Furosemide (Lasix) 20 mg DAILY PO 11/17/20 09:00 11/21/20 17:08 DC 11/21/20 09:37 Metoprolol Tartrate (Lopressor) 37.5 mg BID PO 11/16/20 21:00 11/25/20 18:11 DC 11/25/20 08:21 Ropinirole HCl (Requip) 1 mg DAILY PO 11/17/20 09:00 11/18/20 18:19 DC 11/18/20 08:23 Tamsulosin HCl (Flomax) 0.4 mg DAILY PO 11/17/20 09:00 12/03/20 08:01 Apixaban (Eliquis) 2.5 mg BID PO 11/16/20 21:00 12/03/20 20:46 Multivitamins/ Calcium (Thera-M Plus) 1 tab DAILY PO 11/17/20 09:00 12/03/20 08:01 Vitamin D (Vitamin D3) 1,000 unit DAILY PO 11/17/20 09:00 12/03/20 08:01 Olanzapine (ZyPREXA ZYDIS) 2.5 mg PRN Q2HR PRN PO PSYCHOSIS 11/16/20 23:00 11/30/20 00:32 Trazodone HCl (Desyrel) 50 mg PRN QHS PRN PO INSOMNIA, MAY REPEAT X1 11/16/20 23:00 12/02/20 21:45 Rivastigmine (Exelon) 1 patch DAILY TD 11/18/20 09:00 11/24/20 21:00 DC 11/24/20 08:31 Rivastigmine (Exelon) 1 patch DAILY TD 11/25/20 09:00 12/02/20 18:19 DC 12/02/20 07:49 Ropinirole HCl (Requip) 0.5 mg TID PO 11/18/20 21:00 12/03/20 20:46 Quetiapine Fumarate (SEROquel) 12.5 mg 0900,1700 PO 11/19/20 12:00 11/23/20 17:59 DC 11/23/20 15:27 Sertraline HCl (Zoloft) 25 mg DAILY PO 11/22/20 09:00 11/24/20 21:00 DC 11/24/20 08:31 Sertraline HCl (Zoloft) 50 mg DAILY PO 11/25/20 08:00 12/03/20 08:00 Mirtazapine (Remeron) 7.5 mg QHS PO 11/22/20 21:00 11/26/20 12:16 DC 11/25/20 19:56 Quetiapine Fumarate (SEROquel) 12.5 mg 0900,1300,1700,2100 PO 11/23/20 21:00 11/27/20 13:18 DC 11/26/20 08:58 Fluticasone Propionate (Flonase) 2 spray DAILY NS 11/25/20 09:00 12/03/20 08:03 Cetirizine HCl (ZyrTEC) 10 mg DAILY PO 11/25/20 09:00 12/03/20 08:00 Amlodipine Besylate (Norvasc) 5 mg DAILY PO 11/25/20 18:15 12/03/20 08:00 Metoprolol Tartrate (Lopressor) 25 mg BID PO 11/25/20 18:15 12/03/20 20:45 Mirtazapine (Remeron) 15 mg QHS PO 11/26/20 21:00 12/03/20 20:46 Dextrose/Sodium Chloride 1,000 ml @ 100 mls/hr Q10H IV 11/26/20 17:45 11/26/20 18:23 DC Dextrose 1,000 ml @ 75 mls/hr [id number] IV 11/26/20 18:30 11/27/20 20:05 DC 11/26/20 18:29 Melatonin (Melatonin) 3 mg PRN QHS PRN PO INSOMNIA 11/29/20 18:15 12/02/20 21:45 Melatonin (Melatonin) 3 mg QHS PO 11/29/20 21:00 12/03/20 20:46 Rivastigmine (Exelon 13.3mg) 1 patch DAILY TD 12/03/20 09:00 12/03/20 08:02 Current Medications Medications (Trade) Dose Ordered Sig/Kwame Route PRN Reason Start Time Stop Time Status Last Admin Dose Admin Rivastigmine (Exelon 13.3mg) 1 patch DAILY TD 12/03/20 09:00 12/03/20 08:02 I have reviewed the current psychotropics carefully including drug interactions. Risk benefit ratio favors no change other than as noted in my dictated progress note. 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
[2020-12-04 05:53] VITALS: BP 97/58
[2020-12-04 06:42] LABS: BASO % 1 % (0-3); EOS # 0.2 x10^3/uL (0.0-0.7); EOS % 6 % (0-3); HEMATOCRIT 30.3 % (39.0-53.0); HEMOGLOBIN 9.8 g/dL (13.0-17.5); LYMPH % 28 % (24-48); MEAN CORPUSCULAR HEMOGLOBIN 29 pg (25-35); MEAN CORPUSCULAR HGB CONC 32 g/dL (31-37); MEAN CORPUSCULAR VOLUME 88 fL (79-100); MONO # 0.3 x10^3/uL (0.0-1.1); MONO % 7 % (0-9); NEUT # 2.1 x10^3uL (1.8-7.7); NEUT % 59 % (31-73); PLATELET COUNT 104 x10^3/uL (140-400); RED BLOOD COUNT 3.43 x10^6/uL (4.30-5.70); RED CELL DISTRIBUTION WIDTH 15.3 % (11.5-14.5); WHITE BLOOD COUNT 3.6 x10^3/uL (4.0-11.0)
[2020-12-04 06:43] LABS: ALBUMIN 2.9 g/dL (3.4-5.0); CALCIUM 8.3 mg/dL (8.5-10.1); CREATININE 2.4 mg/dL (0.7-1.3); GFR 25.9; POTASSIUM 3.6 mmol/L (3.5-5.1); TOTAL BILIRUBIN 0.4 mg/dL (0.2-1.0); TOTAL PROTEIN 5.7 g/dL (6.4-8.2)
--- NOTE | 2020-12-04 08:27 | PDOC ---
Exam Note: Chaitanya Note: This note is a late entry for 12/01/2020 covers elements not covered in my initial note. Subjective The patient was seen individually in the morning of 12/01/2020 with Randa PENNY, discussed and reviewed the chart. He slept 5-1/2 hours previous night. He was grabbing at people at times. He remains a little delirious but less sedated and at times cognitively more intact than other times consistent with his diagnosis of possible Parkinsons disease. Review of Systems: No CV, , pulmonary, eye, ENT system symptoms on review. Mental Status Exam: The patient is oriented to himself. As I met with him he was at times grabbing things on the floor but not agitated. Insight and judgement, recent and remote memory, attention and concentration, fund of knowledge is poor consistent with his diagnoses. Laboratory Data: Reviewed. 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 Anxiety disorder unspecified. Impulse control disorder unspecified. Plan: No change from initial note. Assessment: Vital Signs/I&O: Vital Signs Date Time Temp Pulse Resp B/P (MAP) Pulse Ox O2 Delivery O2 Flow Rate FiO2 12/04/20 05:53 97.1 56 18 97/58 (71) 94 12/02/20 19:53 Room Air I & O 12/03/20 12/03/20 12/04/20 14:59 22:59 06:59 Intake Total 960 ml 570 ml Balance 960 ml 570 ml Labs: Laboratory Tests Test 12/04/20 06:15 White Blood Count 3.6 x10^3/uL (4.0-11.0) L Red Blood Count 3.43 x10^6/uL (4.30-5.70) L Hemoglobin 9.8 g/dL (13.0-17.5) L Hematocrit 30.3 % (39.0-53.0) L Mean Corpuscular Volume 88 fL (79-100) Mean Corpuscular Hemoglobin 29 pg (25-35) Mean Corpuscular Hemoglobin Concent 32 g/dL (31-37) Red Cell Distribution Width 15.3 % (11.5-14.5) H Platelet Count 104 x10^3/uL (140-400) L Neutrophils (%) (Auto) 59 % (31-73) Lymphocytes (%) (Auto) 28 % (24-48) Monocytes (%) (Auto) 7 % (0-9) Eosinophils (%) (Auto) 6 % (0-3) H Basophils (%) (Auto) 1 % (0-3) Neutrophils # (Auto) 2.1 x10^3uL (1.8-7.7) Lymphocytes # (Auto) 1.0 x10^3/uL (1.0-4.8) Monocytes # (Auto) 0.3 x10^3/uL (0.0-1.1) Eosinophils # (Auto) 0.2 x10^3/uL (0.0-0.7) Basophils # (Auto) 0.0 x10^3/uL (0.0-0.2) Sodium Level 145 mmol/L (136-145) Potassium Level 3.6 mmol/L (3.5-5.1) Chloride Level 110 mmol/L (98-107) H Carbon Dioxide Level 26 mmol/L (21-32) Anion Gap 9 (6-14) Blood Urea Nitrogen 45 mg/dL (8-26) H Creatinine 2.4 mg/dL (0.7-1.3) H Estimated GFR (Cockcroft-Gault) 25.9 BUN/Creatinine Ratio 19 (6-20) Glucose Level 88 mg/dL (70-99) Calcium Level 8.3 mg/dL (8.5-10.1) L Total Bilirubin 0.4 mg/dL (0.2-1.0) Aspartate Amino Transferase (AST) 16 U/L (15-37) Alanine Aminotransferase (ALT) 26 U/L (16-63) Alkaline Phosphatase 70 U/L (46-116) Total Protein 5.7 g/dL (6.4-8.2) L Albumin 2.9 g/dL (3.4-5.0) L Albumin/Globulin Ratio 1.0 (1.0-1.7) Current Medications: Meds: Laboratory Tests Test 12/04/20 06:15 White Blood Count 3.6 x10^3/uL Red Blood Count 3.43 x10^6/uL Hemoglobin 9.8 g/dL Hematocrit 30.3 % Mean Corpuscular Volume 88 fL Mean Corpuscular Hemoglobin 29 pg Mean Corpuscular Hemoglobin Concent 32 g/dL Red Cell Distribution Width 15.3 % Platelet Count 104 x10^3/uL Neutrophils (%) (Auto) 59 % Lymphocytes (%) (Auto) 28 % Monocytes (%) (Auto) 7 % Eosinophils (%) (Auto) 6 % Basophils (%) (Auto) 1 % Neutrophils # (Auto) 2.1 x10^3uL Lymphocytes # (Auto) 1.0 x10^3/uL Monocytes # (Auto) 0.3 x10^3/uL Eosinophils # (Auto) 0.2 x10^3/uL Basophils # (Auto) 0.0 x10^3/uL Sodium Level 145 mmol/L Potassium Level 3.6 mmol/L Chloride Level 110 mmol/L Carbon Dioxide Level 26 mmol/L Anion Gap 9 Blood Urea Nitrogen 45 mg/dL Creatinine 2.4 mg/dL Estimated GFR (Cockcroft-Gault) 25.9 BUN/Creatinine Ratio 19 Glucose Level 88 mg/dL Calcium Level 8.3 mg/dL Total Bilirubin 0.4 mg/dL Aspartate Amino Transf (AST/SGOT) 16 U/L Alanine Aminotransferase (ALT/SGPT) 26 U/L Alkaline Phosphatase 70 U/L Total Protein 5.7 g/dL Albumin 2.9 g/dL Albumin/Globulin Ratio 1.0 Current Medications Medications (Trade) Dose Ordered Sig/Kwame Route PRN Reason Start Time Stop Time Status Last Admin Dose Admin Acetaminophen (Tylenol) 650 mg PRN Q6HRS PRN PO MILD PAIN / TEMP > 100.3'F 11/16/20 12:15 Multi-Ingredient Ointment (Analgesic [place]) 1 gokul PRN QID PRN TP MUSCLE PAIN 11/16/20 12:15 Al Hydroxide/Mg Hydroxide (Mylanta Plus Xs) 15 ml PRN AFTMEALHC PRN PO DYSPEPSIA 11/16/20 12:15 Magnesium Hydroxide (Milk Of Magnesia) 2,400 mg PRN QHS PRN PO CONSTIPATION 11/16/20 12:15 Allopurinol (Zyloprim) 100 mg DAILY PO 11/17/20 09:00 12/03/20 08:00 Amlodipine Besylate (Norvasc) 10 mg DAILY PO 11/17/20 09:00 11/25/20 18:11 DC 11/25/20 08:21 Donepezil HCl (Aricept) 10 mg DAILY PO 11/17/20 09:00 11/17/20 17:57 DC Famotidine (Pepcid) 10 mg DAILY PO 11/17/20 09:00 12/03/20 08:00 Finasteride (Proscar) 5 mg DAILY PO 11/17/20 09:00 12/03/20 08:01 Furosemide (Lasix) 20 mg DAILY PO 11/17/20 09:00 11/21/20 17:08 DC 11/21/20 09:37 Metoprolol Tartrate (Lopressor) 37.5 mg BID PO 11/16/20 21:00 11/25/20 18:11 DC 11/25/20 08:21 Ropinirole HCl (Requip) 1 mg DAILY PO 11/17/20 09:00 11/18/20 18:19 DC 11/18/20 08:23 Tamsulosin HCl (Flomax) 0.4 mg DAILY PO 11/17/20 09:00 12/03/20 08:01 Apixaban (Eliquis) 2.5 mg BID PO 11/16/20 21:00 12/03/20 20:46 Multivitamins/ Calcium (Thera-M Plus) 1 tab DAILY PO 11/17/20 09:00 12/03/20 08:01 Vitamin D (Vitamin D3) 1,000 unit DAILY PO 11/17/20 09:00 12/03/20 08:01 Olanzapine (ZyPREXA ZYDIS) 2.5 mg PRN Q2HR PRN PO PSYCHOSIS 11/16/20 23:00 11/30/20 00:32 Trazodone HCl (Desyrel) 50 mg PRN QHS PRN PO INSOMNIA, MAY REPEAT X1 11/16/20 23:00 12/02/20 21:45 Rivastigmine (Exelon) 1 patch DAILY TD 11/18/20 09:00 11/24/20 21:00 DC 11/24/20 08:31 Rivastigmine (Exelon) 1 patch DAILY TD 11/25/20 09:00 12/02/20 18:19 DC 12/02/20 07:49 Ropinirole HCl (Requip) 0.5 mg TID PO 11/18/20 21:00 12/03/20 20:46 Quetiapine Fumarate (SEROquel) 12.5 mg 0900,1700 PO 11/19/20 12:00 11/23/20 17:59 DC 11/23/20 15:27 Sertraline HCl (Zoloft) 25 mg DAILY PO 11/22/20 09:00 11/24/20 21:00 DC 11/24/20 08:31 Sertraline HCl (Zoloft) 50 mg DAILY PO 11/25/20 08:00 12/03/20 08:00 Mirtazapine (Remeron) 7.5 mg QHS PO 11/22/20 21:00 11/26/20 12:16 DC 11/25/20 19:56 Quetiapine Fumarate (SEROquel) 12.5 mg 0900,1300,1700,2100 PO 11/23/20 21:00 11/27/20 13:18 DC 11/26/20 08:58 Fluticasone Propionate (Flonase) 2 spray DAILY NS 11/25/20 09:00 12/03/20 08:03 Cetirizine HCl (ZyrTEC) 10 mg DAILY PO 11/25/20 09:00 12/03/20 08:00 Amlodipine Besylate (Norvasc) 5 mg DAILY PO 11/25/20 18:15 12/03/20 08:00 Metoprolol Tartrate (Lopressor) 25 mg BID PO 11/25/20 18:15 12/03/20 20:45 Mirtazapine (Remeron) 15 mg QHS PO 11/26/20 21:00 12/03/20 20:46 Dextrose/Sodium Chloride 1,000 ml @ 100 mls/hr Q10H IV 11/26/20 17:45 11/26/20 18:23 DC Dextrose 1,000 ml @ 75 mls/hr [id number] IV 11/26/20 18:30 11/27/20 20:05 DC 11/26/20 18:29 Melatonin (Melatonin) 3 mg PRN QHS PRN PO INSOMNIA 11/29/20 18:15 12/02/20 21:45 Melatonin (Melatonin) 3 mg QHS PO 11/29/20 21:00 12/03/20 20:46 Rivastigmine (Exelon 13.3mg) 1 patch DAILY TD 12/03/20 09:00 12/03/20 08:02 Current Medications Medications (Trade) Dose Ordered Sig/Kwame Route PRN Reason Start Time Stop Time Status Last Admin Dose Admin Rivastigmine (Exelon 13.3mg) 1 patch DAILY TD 12/03/20 09:00 12/03/20 08:02 I have reviewed the current psychotropics carefully including drug interactions. Risk benefit ratio favors no change other than as noted in my dictated progress note. 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
--- NOTE | 2020-12-04 08:49 | PDOC ---
Exam Note: Chaitanya Note: This note is a late entry for 12/02/2020 covers elements not covered in my initial note. Subjective The patient was seen individually in the evening of 12/02/2020 with Salvador PENNY, discussed and reviewed the chart. He slept 6-3/4 hours previous night. The patient was lethargic in the morning, later did well. Review of Systems: No CV, , pulmonary, eye, ENT system symptoms on review. Mental Status Exam: The patient is oriented to himself. Insight and judgement, recent and remote memory, attention and concentration, fund of knowledge is poor consistent with his diagnoses. Laboratory Data: Reviewed. 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 Anxiety disorder unspecified. Impulse control disorder unspecified. Plan: No change from initial note. We will increase the patients Exelon patch from 9.5 mg a day to 13.3 mg a day. Some of his presentation is fairly consistent with Lewy body dementia. He does have a history of Parkinsons but we may consider having a Neurology consult for confirmation. Assessment: Vital Signs/I&O: Vital Signs Date Time Temp Pulse Resp B/P (MAP) Pulse Ox O2 Delivery O2 Flow Rate FiO2 12/04/20 05:53 97.1 56 18 97/58 (71) 94 12/02/20 19:53 Room Air I & O 12/03/20 12/03/20 12/04/20 15:00 23:00 07:00 Intake Total 960 ml 570 ml Balance 960 ml 570 ml Labs: Laboratory Tests Test 12/04/20 06:15 White Blood Count 3.6 x10^3/uL (4.0-11.0) L Red Blood Count 3.43 x10^6/uL (4.30-5.70) L Hemoglobin 9.8 g/dL (13.0-17.5) L Hematocrit 30.3 % (39.0-53.0) L Mean Corpuscular Volume 88 fL (79-100) Mean Corpuscular Hemoglobin 29 pg (25-35) Mean Corpuscular Hemoglobin Concent 32 g/dL (31-37) Red Cell Distribution Width 15.3 % (11.5-14.5) H Platelet Count 104 x10^3/uL (140-400) L Neutrophils (%) (Auto) 59 % (31-73) Lymphocytes (%) (Auto) 28 % (24-48) Monocytes (%) (Auto) 7 % (0-9) Eosinophils (%) (Auto) 6 % (0-3) H Basophils (%) (Auto) 1 % (0-3) Neutrophils # (Auto) 2.1 x10^3uL (1.8-7.7) Lymphocytes # (Auto) 1.0 x10^3/uL (1.0-4.8) Monocytes # (Auto) 0.3 x10^3/uL (0.0-1.1) Eosinophils # (Auto) 0.2 x10^3/uL (0.0-0.7) Basophils # (Auto) 0.0 x10^3/uL (0.0-0.2) Sodium Level 145 mmol/L (136-145) Potassium Level 3.6 mmol/L (3.5-5.1) Chloride Level 110 mmol/L (98-107) H Carbon Dioxide Level 26 mmol/L (21-32) Anion Gap 9 (6-14) Blood Urea Nitrogen 45 mg/dL (8-26) H Creatinine 2.4 mg/dL (0.7-1.3) H Estimated GFR (Cockcroft-Gault) 25.9 BUN/Creatinine Ratio 19 (6-20) Glucose Level 88 mg/dL (70-99) Calcium Level 8.3 mg/dL (8.5-10.1) L Total Bilirubin 0.4 mg/dL (0.2-1.0) Aspartate Amino Transferase (AST) 16 U/L (15-37) Alanine Aminotransferase (ALT) 26 U/L (16-63) Alkaline Phosphatase 70 U/L (46-116) Total Protein 5.7 g/dL (6.4-8.2) L Albumin 2.9 g/dL (3.4-5.0) L Albumin/Globulin Ratio 1.0 (1.0-1.7) Current Medications: Meds: Laboratory Tests Test 12/04/20 06:15 White Blood Count 3.6 x10^3/uL Red Blood Count 3.43 x10^6/uL Hemoglobin 9.8 g/dL Hematocrit 30.3 % Mean Corpuscular Volume 88 fL Mean Corpuscular Hemoglobin 29 pg Mean Corpuscular Hemoglobin Concent 32 g/dL Red Cell Distribution Width 15.3 % Platelet Count 104 x10^3/uL Neutrophils (%) (Auto) 59 % Lymphocytes (%) (Auto) 28 % Monocytes (%) (Auto) 7 % Eosinophils (%) (Auto) 6 % Basophils (%) (Auto) 1 % Neutrophils # (Auto) 2.1 x10^3uL Lymphocytes # (Auto) 1.0 x10^3/uL Monocytes # (Auto) 0.3 x10^3/uL Eosinophils # (Auto) 0.2 x10^3/uL Basophils # (Auto) 0.0 x10^3/uL Sodium Level 145 mmol/L Potassium Level 3.6 mmol/L Chloride Level 110 mmol/L Carbon Dioxide Level 26 mmol/L Anion Gap 9 Blood Urea Nitrogen 45 mg/dL Creatinine 2.4 mg/dL Estimated GFR (Cockcroft-Gault) 25.9 BUN/Creatinine Ratio 19 Glucose Level 88 mg/dL Calcium Level 8.3 mg/dL Total Bilirubin 0.4 mg/dL Aspartate Amino Transf (AST/SGOT) 16 U/L Alanine Aminotransferase (ALT/SGPT) 26 U/L Alkaline Phosphatase 70 U/L Total Protein 5.7 g/dL Albumin 2.9 g/dL Albumin/Globulin Ratio 1.0 Current Medications Medications (Trade) Dose Ordered Sig/Kwame Route PRN Reason Start Time Stop Time Status Last Admin Dose Admin Acetaminophen (Tylenol) 650 mg PRN Q6HRS PRN PO MILD PAIN / TEMP > 100.3'F 11/16/20 12:15 Multi-Ingredient Ointment (Analgesic [place]) 1 gokul PRN QID PRN TP MUSCLE PAIN 11/16/20 12:15 Al Hydroxide/Mg Hydroxide (Mylanta Plus Xs) 15 ml PRN AFTMEALHC PRN PO DYSPEPSIA 11/16/20 12:15 Magnesium Hydroxide (Milk Of Magnesia) 2,400 mg PRN QHS PRN PO CONSTIPATION 11/16/20 12:15 Allopurinol (Zyloprim) 100 mg DAILY PO 11/17/20 09:00 12/03/20 08:00 Amlodipine Besylate (Norvasc) 10 mg DAILY PO 11/17/20 09:00 11/25/20 18:11 DC 11/25/20 08:21 Donepezil HCl (Aricept) 10 mg DAILY PO 11/17/20 09:00 11/17/20 17:57 DC Famotidine (Pepcid) 10 mg DAILY PO 11/17/20 09:00 12/03/20 08:00 Finasteride (Proscar) 5 mg DAILY PO 11/17/20 09:00 12/03/20 08:01 Furosemide (Lasix) 20 mg DAILY PO 11/17/20 09:00 11/21/20 17:08 DC 11/21/20 09:37 Metoprolol Tartrate (Lopressor) 37.5 mg BID PO 11/16/20 21:00 11/25/20 18:11 DC 11/25/20 08:21 Ropinirole HCl (Requip) 1 mg DAILY PO 11/17/20 09:00 11/18/20 18:19 DC 11/18/20 08:23 Tamsulosin HCl (Flomax) 0.4 mg DAILY PO 11/17/20 09:00 12/03/20 08:01 Apixaban (Eliquis) 2.5 mg BID PO 11/16/20 21:00 12/03/20 20:46 Multivitamins/ Calcium (Thera-M Plus) 1 tab DAILY PO 11/17/20 09:00 12/03/20 08:01 Vitamin D (Vitamin D3) 1,000 unit DAILY PO 11/17/20 09:00 12/03/20 08:01 Olanzapine (ZyPREXA ZYDIS) 2.5 mg PRN Q2HR PRN PO PSYCHOSIS 11/16/20 23:00 11/30/20 00:32 Trazodone HCl (Desyrel) 50 mg PRN QHS PRN PO INSOMNIA, MAY REPEAT X1 11/16/20 23:00 12/02/20 21:45 Rivastigmine (Exelon) 1 patch DAILY TD 11/18/20 09:00 11/24/20 21:00 DC 11/24/20 08:31 Rivastigmine (Exelon) 1 patch DAILY TD 11/25/20 09:00 12/02/20 18:19 DC 12/02/20 07:49 Ropinirole HCl (Requip) 0.5 mg TID PO 11/18/20 21:00 12/03/20 20:46 Quetiapine Fumarate (SEROquel) 12.5 mg 0900,1700 PO 11/19/20 12:00 11/23/20 17:59 DC 11/23/20 15:27 Sertraline HCl (Zoloft) 25 mg DAILY PO 11/22/20 09:00 11/24/20 21:00 DC 11/24/20 08:31 Sertraline HCl (Zoloft) 50 mg DAILY PO 11/25/20 08:00 12/03/20 08:00 Mirtazapine (Remeron) 7.5 mg QHS PO 11/22/20 21:00 11/26/20 12:16 DC 11/25/20 19:56 Quetiapine Fumarate (SEROquel) 12.5 mg 0900,1300,1700,2100 PO 11/23/20 21:00 11/27/20 13:18 DC 11/26/20 08:58 Fluticasone Propionate (Flonase) 2 spray DAILY NS 11/25/20 09:00 12/03/20 08:03 Cetirizine HCl (ZyrTEC) 10 mg DAILY PO 11/25/20 09:00 12/03/20 08:00 Amlodipine Besylate (Norvasc) 5 mg DAILY PO 11/25/20 18:15 12/03/20 08:00 Metoprolol Tartrate (Lopressor) 25 mg BID PO 11/25/20 18:15 12/03/20 20:45 Mirtazapine (Remeron) 15 mg QHS PO 11/26/20 21:00 12/03/20 20:46 Dextrose/Sodium Chloride 1,000 ml @ 100 mls/hr Q10H IV 11/26/20 17:45 11/26/20 18:23 DC Dextrose 1,000 ml @ 75 mls/hr [id number] IV 11/26/20 18:30 11/27/20 20:05 DC 11/26/20 18:29 Melatonin (Melatonin) 3 mg PRN QHS PRN PO INSOMNIA 11/29/20 18:15 12/02/20 21:45 Melatonin (Melatonin) 3 mg QHS PO 11/29/20 21:00 12/03/20 20:46 Rivastigmine (Exelon 13.3mg) 1 patch DAILY TD 3/22/21 09:00 12/03/20 08:02 Current Medications Medications (Trade) Dose Ordered Sig/Kwame Route PRN Reason Start Time Stop Time Status Last Admin Dose Admin Rivastigmine (Exelon 13.3mg) 1 patch DAILY TD 12/03/20 09:00 12/03/20 08:02 I have reviewed the current psychotropics carefully including drug interactions. Risk benefit ratio favors no change other than as noted in my dictated progress note. 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
--- NOTE | 2020-12-04 09:08 | PDOC ---
Exam Note: Chaitanya Note: This note is a late entry for 12/03/2020 covers elements not covered in my initial note. Subjective: The patient was reviewed in the morning of 12/03/2020 for a treatment team meeting with Nuria Clifford, Gabbi Rebollar and Laureen (elementary school social worker), Jing, activity therapy and Gerry PENNY, discussed and reviewed the chart. He slept 4-3/4 hours previous night. The patients Pennie and 2 sons Abdelrahman and Donnie attended the treatment team meeting. We had a lengthy discussion about his diagnoses and progress. He remains confused, but less psychotic and is tolerating coming off the Seroquel. Appetite is 75%. Family have looked at various nursing facilities including [facility] in [facility] in [facility] and [facility]. They will coordinate this with Gabbi Rebollar, social service staff. When I also met the patient individually in the evening, he knew about his and sons names and was able to recognize these. Review of Systems: No CV, , pulmonary, eye, ENT system symptoms on review. Mental Status Exam: The patient is oriented to himself. Insight and judgement, recent and remote memory, attention and concentration, fund of knowledge is poor consistent with his diagnoses. Laboratory Data: Reviewed. 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 Anxiety disorder unspecified. Impulse control disorder unspecified. Plan: We will have a Neurology consult with Dr. Greene to confirm or refute the diagnosis of Parkinsons disease. Rest psychotropics unchanged from before. Assessment: Vital Signs/I&O: Vital Signs Date Time Temp Pulse Resp B/P (MAP) Pulse Ox O2 Delivery O2 Flow Rate FiO2 12/04/20 05:53 97.1 56 18 97/58 (71) 94 12/02/20 19:53 Room Air I & O 12/03/20 12/03/20 12/04/20 14:59 22:59 06:59 Intake Total 960 ml 570 ml Balance 960 ml 570 ml Labs: Laboratory Tests Test 12/04/20 06:15 White Blood Count 3.6 x10^3/uL (4.0-11.0) L Red Blood Count 3.43 x10^6/uL (4.30-5.70) L Hemoglobin 9.8 g/dL (13.0-17.5) L Hematocrit 30.3 % (39.0-53.0) L Mean Corpuscular Volume 88 fL (79-100) Mean Corpuscular Hemoglobin 29 pg (25-35) Mean Corpuscular Hemoglobin Concent 32 g/dL (31-37) Red Cell Distribution Width 15.3 % (11.5-14.5) H Platelet Count 104 x10^3/uL (140-400) L Neutrophils (%) (Auto) 59 % (31-73) Lymphocytes (%) (Auto) 28 % (24-48) Monocytes (%) (Auto) 7 % (0-9) Eosinophils (%) (Auto) 6 % (0-3) H Basophils (%) (Auto) 1 % (0-3) Neutrophils # (Auto) 2.1 x10^3uL (1.8-7.7) Lymphocytes # (Auto) 1.0 x10^3/uL (1.0-4.8) Monocytes # (Auto) 0.3 x10^3/uL (0.0-1.1) Eosinophils # (Auto) 0.2 x10^3/uL (0.0-0.7) Basophils # (Auto) 0.0 x10^3/uL (0.0-0.2) Sodium Level 145 mmol/L (136-145) Potassium Level 3.6 mmol/L (3.5-5.1) Chloride Level 110 mmol/L (98-107) H Carbon Dioxide Level 26 mmol/L (21-32) Anion Gap 9 (6-14) Blood Urea Nitrogen 45 mg/dL (8-26) H Creatinine 2.4 mg/dL (0.7-1.3) H Estimated GFR (Cockcroft-Gault) 25.9 BUN/Creatinine Ratio 19 (6-20) Glucose Level 88 mg/dL (70-99) Calcium Level 8.3 mg/dL (8.5-10.1) L Total Bilirubin 0.4 mg/dL (0.2-1.0) Aspartate Amino Transferase (AST) 16 U/L (15-37) Alanine Aminotransferase (ALT) 26 U/L (16-63) Alkaline Phosphatase 70 U/L (46-116) Total Protein 5.7 g/dL (6.4-8.2) L Albumin 2.9 g/dL (3.4-5.0) L Albumin/Globulin Ratio 1.0 (1.0-1.7) Current Medications: Meds: Laboratory Tests Test 12/04/20 06:15 White Blood Count 3.6 x10^3/uL Red Blood Count 3.43 x10^6/uL Hemoglobin 9.8 g/dL Hematocrit 30.3 % Mean Corpuscular Volume 88 fL Mean Corpuscular Hemoglobin 29 pg Mean Corpuscular Hemoglobin Concent 32 g/dL Red Cell Distribution Width 15.3 % Platelet Count 104 x10^3/uL Neutrophils (%) (Auto) 59 % Lymphocytes (%) (Auto) 28 % Monocytes (%) (Auto) 7 % Eosinophils (%) (Auto) 6 % Basophils (%) (Auto) 1 % Neutrophils # (Auto) 2.1 x10^3uL Lymphocytes # (Auto) 1.0 x10^3/uL Monocytes # (Auto) 0.3 x10^3/uL Eosinophils # (Auto) 0.2 x10^3/uL Basophils # (Auto) 0.0 x10^3/uL Sodium Level 145 mmol/L Potassium Level 3.6 mmol/L Chloride Level 110 mmol/L Carbon Dioxide Level 26 mmol/L Anion Gap 9 Blood Urea Nitrogen 45 mg/dL Creatinine 2.4 mg/dL Estimated GFR (Cockcroft-Gault) 25.9 BUN/Creatinine Ratio 19 Glucose Level 88 mg/dL Calcium Level 8.3 mg/dL Total Bilirubin 0.4 mg/dL Aspartate Amino Transf (AST/SGOT) 16 U/L Alanine Aminotransferase (ALT/SGPT) 26 U/L Alkaline Phosphatase 70 U/L Total Protein 5.7 g/dL Albumin 2.9 g/dL Albumin/Globulin Ratio 1.0 Current Medications Medications (Trade) Dose Ordered Sig/Kwame Route PRN Reason Start Time Stop Time Status Last Admin Dose Admin Acetaminophen (Tylenol) 650 mg PRN Q6HRS PRN PO MILD PAIN / TEMP > 100.3'F 11/16/20 12:15 Multi-Ingredient Ointment (Analgesic [place]) 1 gokul PRN QID PRN TP MUSCLE PAIN 11/16/20 12:15 Al Hydroxide/Mg Hydroxide (Mylanta Plus Xs) 15 ml PRN AFTMEALHC PRN PO DYSPEPSIA 11/16/20 12:15 Magnesium Hydroxide (Milk Of Magnesia) 2,400 mg PRN QHS PRN PO CONSTIPATION 11/16/20 12:15 Allopurinol (Zyloprim) 100 mg DAILY PO 11/17/20 09:00 12/03/20 08:00 Amlodipine Besylate (Norvasc) 10 mg DAILY PO 11/17/20 09:00 11/25/20 18:11 DC 11/25/20 08:21 Donepezil HCl (Aricept) 10 mg DAILY PO 11/17/20 09:00 11/17/20 17:57 DC Famotidine (Pepcid) 10 mg DAILY PO 11/17/20 09:00 12/03/20 08:00 Finasteride (Proscar) 5 mg DAILY PO 11/17/20 09:00 12/03/20 08:01 Furosemide (Lasix) 20 mg DAILY PO 11/17/20 09:00 11/21/20 17:08 DC 11/21/20 09:37 Metoprolol Tartrate (Lopressor) 37.5 mg BID PO 11/16/20 21:00 11/25/20 18:11 DC 11/25/20 08:21 Ropinirole HCl (Requip) 1 mg DAILY PO 11/17/20 09:00 11/18/20 18:19 DC 11/18/20 08:23 Tamsulosin HCl (Flomax) 0.4 mg DAILY PO 11/17/20 09:00 12/03/20 08:01 Apixaban (Eliquis) 2.5 mg BID PO 11/16/20 21:00 12/03/20 20:46 Multivitamins/ Calcium (Thera-M Plus) 1 tab DAILY PO 11/17/20 09:00 12/03/20 08:01 Vitamin D (Vitamin D3) 1,000 unit DAILY PO 11/17/20 09:00 12/03/20 08:01 Olanzapine (ZyPREXA ZYDIS) 2.5 mg PRN Q2HR PRN PO PSYCHOSIS 11/16/20 23:00 11/30/20 00:32 Trazodone HCl (Desyrel) 50 mg PRN QHS PRN PO INSOMNIA, MAY REPEAT X1 11/16/20 23:00 12/02/20 21:45 Rivastigmine (Exelon) 1 patch DAILY TD 11/18/20 09:00 11/24/20 21:00 DC 11/24/20 08:31 Rivastigmine (Exelon) 1 patch DAILY TD 11/25/20 09:00 12/02/20 18:19 DC 12/02/20 07:49 Ropinirole HCl (Requip) 0.5 mg TID PO 11/18/20 21:00 12/03/20 20:46 Quetiapine Fumarate (SEROquel) 12.5 mg 0900,1700 PO 11/19/20 12:00 11/23/20 17:59 DC 11/23/20 15:27 Sertraline HCl (Zoloft) 25 mg DAILY PO 11/22/20 09:00 11/24/20 21:00 DC 11/24/20 08:31 Sertraline HCl (Zoloft) 50 mg DAILY PO 11/25/20 08:00 12/03/20 08:00 Mirtazapine (Remeron) 7.5 mg QHS PO 11/22/20 21:00 11/26/20 12:16 DC 11/25/20 19:56 Quetiapine Fumarate (SEROquel) 12.5 mg 0900,1300,1700,2100 PO 11/23/20 21:00 11/27/20 13:18 DC 11/26/20 08:58 Fluticasone Propionate (Flonase) 2 spray DAILY NS 11/25/20 09:00 12/03/20 08:03 Cetirizine HCl (ZyrTEC) 10 mg DAILY PO 11/25/20 09:00 12/03/20 08:00 Amlodipine Besylate (Norvasc) 5 mg DAILY PO 11/25/20 18:15 12/03/20 08:00 Metoprolol Tartrate (Lopressor) 25 mg BID PO 11/25/20 18:15 12/03/20 20:45 Mirtazapine (Remeron) 15 mg QHS PO 11/26/20 21:00 12/03/20 20:46 Dextrose/Sodium Chloride 1,000 ml @ 100 mls/hr Q10H IV 11/26/20 17:45 11/26/20 18:23 DC Dextrose 1,000 ml @ 75 mls/hr [id number] IV 11/26/20 18:30 11/27/20 20:05 DC 11/26/20 18:29 Melatonin (Melatonin) 3 mg PRN QHS PRN PO INSOMNIA 11/29/20 18:15 12/02/20 21:45 Melatonin (Melatonin) 3 mg QHS PO 11/29/20 21:00 12/03/20 20:46 Rivastigmine (Exelon 13.3mg) 1 patch DAILY TD 12/03/20 09:00 12/03/20 08:02 I have reviewed the current psychotropics carefully including drug interactions. Risk benefit ratio favors no change other than as noted in my dictated progress note. Diagnosis: Problems: (1) Major neurocognitive disorder (2) Major neurocognitive disorder due to Parkinson's disease with behavioral disturbance (3) Impulse control disorder, unspecified (4) Anxiety disorder, unspecified (5) Dementia, vascular, with depression (6) Dementia, vascular, with delusions (7) Dementia in Alzheimer's disease with depression (8) Dementia in Alzheimer's disease with delusions KASSANDRA TAMAYO MD Dec 04, 2020 09:08
[2020-12-04] MEDS: ALLOPURINOL 100 MG TABLET. PO SCH (09:37)
[2020-12-04] MEDS: CHOLECALCIFEROL (VITAMIN D3) 1,000 UNIT TABLET PO SCH (09:37)
[2020-12-04] MEDS: CETIRIZINE HCL 10 MG TABLET PO SCH (09:37)
[2020-12-04] MEDS: FAMOTIDINE 20 MG TABLET PO SCH (09:37)
[2020-12-04] MEDS: rOPINIRole 0.5 MG TABLET. PO SCH ×3 (09:38→20:19)
[2020-12-04] MEDS: SERTRALINE 50 MG TABLET. PO SCH (09:38)
[2020-12-04] MEDS: FINASTERIDE 5 MG TABLET. PO SCH (09:38)
[2020-12-04] MEDS: MULTIVITAMIN with MINERAL TABLET. PO SCH (09:38)
[2020-12-04] MEDS: METOPROLOL TART IMMED RELEASE 25 MG TABLET. PO SCH ×2 (09:38→20:25)
[2020-12-04] MEDS: APIXABAN 2.5 MG TABLET PO SCH ×2 (09:38→20:20)
[2020-12-04] MEDS: FLUTICASONE 50MCG/NASAL SPRAY 16GM BOTTLE. NS SCH (09:38)
[2020-12-04] MEDS: TAMSULOSIN 0.4 MG CAP.ER.24H. PO SCH (09:38)
[2020-12-04] MEDS: amLODIPine BESYLATE 5 MG TABLET PO SCH (09:38)
[2020-12-04] MEDS: RIVASTIGMINE 13.3MG PATCH. TD SCH (09:39)
[2020-12-04 16:23] VITALS: BP 100/56
[2020-12-04] MEDS: MELATONIN 3 MG TABLET PO SCH (20:19)
[2020-12-04] MEDS: MIRTAZAPINE 15 MG TABLET PO SCH (20:20)
[2020-12-04 20:26] VITALS: BP 102/62
--- NOTE | 2020-12-04 21:58 | PDOC ---
Exam Note: Chaitanya Note: Please also refer to the separate dictated note~for this date of service dictated separately.~Patient seen individually. Discussed the patient with Nursing staff reviewed the chart.~Reviewed interim history and current functioning. Reviewed vital signs,~Labs/ Radiology~and current medications noted below. Continue current treatment with the changes noted in the dictated addendum note Assessment: Vital Signs/I&O: Vital Signs Date Time Temp Pulse Resp B/P (MAP) Pulse Ox O2 Delivery O2 Flow Rate FiO2 12/04/20 20:26 56 102/62 (75) 96 Room Air 12/04/20 16:23 97.5 16 I & O 12/03/20 12/03/20 12/04/20 15:00 23:00 07:00 Intake Total 960 ml 570 ml Balance 960 ml 570 ml Labs: Laboratory Tests Test 12/04/20 06:15 White Blood Count 3.6 x10^3/uL (4.0-11.0) L Red Blood Count 3.43 x10^6/uL (4.30-5.70) L Hemoglobin 9.8 g/dL (13.0-17.5) L Hematocrit 30.3 % (39.0-53.0) L Mean Corpuscular Volume 88 fL (79-100) Mean Corpuscular Hemoglobin 29 pg (25-35) Mean Corpuscular Hemoglobin Concent 32 g/dL (31-37) Red Cell Distribution Width 15.3 % (11.5-14.5) H Platelet Count 104 x10^3/uL (140-400) L Neutrophils (%) (Auto) 59 % (31-73) Lymphocytes (%) (Auto) 28 % (24-48) Monocytes (%) (Auto) 7 % (0-9) Eosinophils (%) (Auto) 6 % (0-3) H Basophils (%) (Auto) 1 % (0-3) Neutrophils # (Auto) 2.1 x10^3uL (1.8-7.7) Lymphocytes # (Auto) 1.0 x10^3/uL (1.0-4.8) Monocytes # (Auto) 0.3 x10^3/uL (0.0-1.1) Eosinophils # (Auto) 0.2 x10^3/uL (0.0-0.7) Basophils # (Auto) 0.0 x10^3/uL (0.0-0.2) Sodium Level 145 mmol/L (136-145) Potassium Level 3.6 mmol/L (3.5-5.1) Chloride Level 110 mmol/L (98-107) H Carbon Dioxide Level 26 mmol/L (21-32) Anion Gap 9 (6-14) Blood Urea Nitrogen 45 mg/dL (8-26) H Creatinine 2.4 mg/dL (0.7-1.3) H Estimated GFR (Cockcroft-Gault) 25.9 BUN/Creatinine Ratio 19 (6-20) Glucose Level 88 mg/dL (70-99) Calcium Level 8.3 mg/dL (8.5-10.1) L Total Bilirubin 0.4 mg/dL (0.2-1.0) Aspartate Amino Transferase (AST) 16 U/L (15-37) Alanine Aminotransferase (ALT) 26 U/L (16-63) Alkaline Phosphatase 70 U/L (46-116) Total Protein 5.7 g/dL (6.4-8.2) L Albumin 2.9 g/dL (3.4-5.0) L Albumin/Globulin Ratio 1.0 (1.0-1.7) Current Medications: Meds: Laboratory Tests Test 12/04/20 06:15 White Blood Count 3.6 x10^3/uL Red Blood Count 3.43 x10^6/uL Hemoglobin 9.8 g/dL Hematocrit 30.3 % Mean Corpuscular Volume 88 fL Mean Corpuscular Hemoglobin 29 pg Mean Corpuscular Hemoglobin Concent 32 g/dL Red Cell Distribution Width 15.3 % Platelet Count 104 x10^3/uL Neutrophils (%) (Auto) 59 % Lymphocytes (%) (Auto) 28 % Monocytes (%) (Auto) 7 % Eosinophils (%) (Auto) 6 % Basophils (%) (Auto) 1 % Neutrophils # (Auto) 2.1 x10^3uL Lymphocytes # (Auto) 1.0 x10^3/uL Monocytes # (Auto) 0.3 x10^3/uL Eosinophils # (Auto) 0.2 x10^3/uL Basophils # (Auto) 0.0 x10^3/uL Sodium Level 145 mmol/L Potassium Level 3.6 mmol/L Chloride Level 110 mmol/L Carbon Dioxide Level 26 mmol/L Anion Gap 9 Blood Urea Nitrogen 45 mg/dL Creatinine 2.4 mg/dL Estimated GFR (Cockcroft-Gault) 25.9 BUN/Creatinine Ratio 19 Glucose Level 88 mg/dL Calcium Level 8.3 mg/dL Total Bilirubin 0.4 mg/dL Aspartate Amino Transf (AST/SGOT) 16 U/L Alanine Aminotransferase (ALT/SGPT) 26 U/L Alkaline Phosphatase 70 U/L Total Protein 5.7 g/dL Albumin 2.9 g/dL Albumin/Globulin Ratio 1.0 Current Medications Medications (Trade) Dose Ordered Sig/Kwame Route PRN Reason Start Time Stop Time Status Last Admin Dose Admin Acetaminophen (Tylenol) 650 mg PRN Q6HRS PRN PO MILD PAIN / TEMP > 100.3'F 11/16/20 12:15 Multi-Ingredient Ointment (Analgesic [place]) 1 gokul PRN QID PRN TP MUSCLE PAIN 11/16/20 12:15 Al Hydroxide/Mg Hydroxide (Mylanta Plus Xs) 15 ml PRN AFTMEALHC PRN PO DYSPEPSIA 11/16/20 12:15 Magnesium Hydroxide (Milk Of Magnesia) 2,400 mg PRN QHS PRN PO CONSTIPATION 11/16/20 12:15 Allopurinol (Zyloprim) 100 mg DAILY PO 11/17/20 09:00 12/04/20 09:37 Amlodipine Besylate (Norvasc) 10 mg DAILY PO 11/17/20 09:00 11/25/20 18:11 DC 11/25/20 08:21 Donepezil HCl (Aricept) 10 mg DAILY PO 11/17/20 09:00 11/17/20 17:57 DC Famotidine (Pepcid) 10 mg DAILY PO 11/17/20 09:00 12/04/20 09:37 Finasteride (Proscar) 5 mg DAILY PO 11/17/20 09:00 12/04/20 09:38 Furosemide (Lasix) 20 mg DAILY PO 11/17/20 09:00 11/21/20 17:08 DC 11/21/20 09:37 Metoprolol Tartrate (Lopressor) 37.5 mg BID PO 11/16/20 21:00 11/25/20 18:11 DC 11/25/20 08:21 Ropinirole HCl (Requip) 1 mg DAILY PO 11/17/20 09:00 11/18/20 18:19 DC 11/18/20 08:23 Tamsulosin HCl (Flomax) 0.4 mg DAILY PO 11/17/20 09:00 12/04/20 09:38 Apixaban (Eliquis) 2.5 mg BID PO 11/16/20 21:00 12/04/20 20:20 Multivitamins/ Calcium (Thera-M Plus) 1 tab DAILY PO 11/17/20 09:00 12/04/20 09:38 Vitamin D (Vitamin D3) 1,000 unit DAILY PO 11/17/20 09:00 12/04/20 09:37 Olanzapine (ZyPREXA ZYDIS) 2.5 mg PRN Q2HR PRN PO PSYCHOSIS 11/16/20 23:00 11/30/20 00:32 Trazodone HCl (Desyrel) 50 mg PRN QHS PRN PO INSOMNIA, MAY REPEAT X1 11/16/20 23:00 12/02/20 21:45 Rivastigmine (Exelon) 1 patch DAILY TD 11/18/20 09:00 11/24/20 21:00 DC 11/24/20 08:31 Rivastigmine (Exelon) 1 patch DAILY TD 11/25/20 09:00 12/02/20 18:19 DC 12/02/20 07:49 Ropinirole HCl (Requip) 0.5 mg TID PO 11/18/20 21:00 12/04/20 20:19 Quetiapine Fumarate (SEROquel) 12.5 mg 0900,1700 PO 11/19/20 12:00 11/23/20 17:59 DC 11/23/20 15:27 Sertraline HCl (Zoloft) 25 mg DAILY PO 11/22/20 09:00 11/24/20 21:00 DC 11/24/20 08:31 Sertraline HCl (Zoloft) 50 mg DAILY PO 11/25/20 08:00 12/04/20 09:38 Mirtazapine (Remeron) 7.5 mg QHS PO 11/22/20 21:00 11/26/20 12:16 DC 11/25/20 19:56 Quetiapine Fumarate (SEROquel) 12.5 mg 0900,1300,1700,2100 PO 11/23/20 21:00 11/27/20 13:18 DC 11/26/20 08:58 Fluticasone Propionate (Flonase) 2 spray DAILY NS 11/25/20 09:00 12/04/20 09:38 Cetirizine HCl (ZyrTEC) 10 mg DAILY PO 11/25/20 09:00 12/04/20 09:37 Amlodipine Besylate (Norvasc) 5 mg DAILY PO 11/25/20 18:15 12/04/20 09:38 Metoprolol Tartrate (Lopressor) 25 mg BID PO 11/25/20 18:15 12/04/20 09:38 Mirtazapine (Remeron) 15 mg QHS PO 11/26/20 21:00 12/04/20 20:20 Dextrose/Sodium Chloride 1,000 ml @ 100 mls/hr Q10H IV 11/26/20 17:45 11/26/20 18:23 DC Dextrose 1,000 ml @ 75 mls/hr [id number] IV 11/26/20 18:30 11/27/20 20:05 DC 11/26/20 18:29 Melatonin (Melatonin) 3 mg PRN QHS PRN PO INSOMNIA 11/29/20 18:15 12/02/20 21:45 Melatonin (Melatonin) 3 mg QHS PO 11/29/20 21:00 12/04/20 20:19 Rivastigmine (Exelon 13.3mg) 1 patch DAILY TD 12/03/20 09:00 12/04/20 09:39 I have reviewed the current psychotropics carefully including drug interactions. Risk benefit ratio favors no change other than as noted in my dictated progress note. 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
[2020-12-05 06:12] VITALS: BP 152/91
[2020-12-05] MEDS: FINASTERIDE 5 MG TABLET. PO SCH (08:28)
[2020-12-05] MEDS: MULTIVITAMIN with MINERAL TABLET. PO SCH (08:28)
[2020-12-05] MEDS: SERTRALINE 50 MG TABLET. PO SCH (08:28)
[2020-12-05] MEDS: RIVASTIGMINE 13.3MG PATCH. TD SCH (08:28)
[2020-12-05] MEDS: FLUTICASONE 50MCG/NASAL SPRAY 16GM BOTTLE. NS SCH (08:28)
[2020-12-05] MEDS: TAMSULOSIN 0.4 MG CAP.ER.24H. PO SCH (08:28)
[2020-12-05] MEDS: CETIRIZINE HCL 10 MG TABLET PO SCH (08:29)
[2020-12-05] MEDS: CHOLECALCIFEROL (VITAMIN D3) 1,000 UNIT TABLET PO SCH (08:29)
[2020-12-05] MEDS: FAMOTIDINE 20 MG TABLET PO SCH (08:29)
[2020-12-05] MEDS: ALLOPURINOL 100 MG TABLET. PO SCH (08:29)
[2020-12-05] MEDS: rOPINIRole 0.5 MG TABLET. PO SCH ×3 (08:29→20:22)
[2020-12-05] MEDS: METOPROLOL TART IMMED RELEASE 25 MG TABLET. PO SCH ×2 (08:29→20:22)
[2020-12-05] MEDS: APIXABAN 2.5 MG TABLET PO SCH ×2 (08:30→20:23)
[2020-12-05] MEDS: amLODIPine BESYLATE 5 MG TABLET PO SCH (08:30)
--- NOTE | 2020-12-05 08:49 | PDOC ---
Exam Note: Chaitanya Note: This note is a late entry for 12/04/2020 covers elements not covered in my initial note. Subjective: The patient was seen individually in the evening of 12/04/2020 with Gerry PENNY, discussed and reviewed the chart. He slept 6-1/4 hours previous night. The patient remains confused, calm, but not aggressive. As I met with him, I mentioned the name of Abdelrahman and Simeon, his sons and he responded to the former but did not seem to recognize the latter or his Pennie when I mentioned her name. He does seem more confused in the evening, better during the daytime. Review of Systems: No CV, , pulmonary, eye, ENT system symptoms on review. Mental Status Exam: The patient is oriented to himself. Insight and judgement, recent and remote memory, attention and concentration, fund of knowledge is poor consistent with his diagnoses. Laboratory Data: Reviewed. Impression: Major neurocognitive disorder, Alzheimer vascular with delusion, depression, behavioral disturbance. Anxiety disorder unspecified. Impulse control disorder unspecified. Plan: No change from initial note. Assessment: Vital Signs/I&O: Vital Signs Date Time Temp Pulse Resp B/P (MAP) Pulse Ox O2 Delivery O2 Flow Rate FiO2 12/05/20 08:30 49 152/91 12/05/20 06:12 98.1 16 96 12/04/20 20:26 Room Air I & O 12/04/20 12/04/20 12/05/20 15:00 23:00 07:00 Intake Total 480 ml 360 ml Balance 480 ml 360 ml Current Medications: Meds: Current Medications Medications (Trade) Dose Ordered Sig/Kwame Route PRN Reason Start Time Stop Time Status Last Admin Dose Admin Acetaminophen (Tylenol) 650 mg PRN Q6HRS PRN PO MILD PAIN / TEMP > 100.3'F 11/16/20 12:15 Multi-Ingredient Ointment (Analgesic [place]) 1 gokul PRN QID PRN TP MUSCLE PAIN 11/16/20 12:15 Al Hydroxide/Mg Hydroxide (Mylanta Plus Xs) 15 ml PRN AFTMEALHC PRN PO DYSPEPSIA 11/16/20 12:15 Magnesium Hydroxide (Milk Of Magnesia) 2,400 mg PRN QHS PRN PO CONSTIPATION 11/16/20 12:15 Allopurinol (Zyloprim) 100 mg DAILY PO 3/6/21 09:00 12/05/20 08:29 Amlodipine Besylate (Norvasc) 10 mg DAILY PO 11/17/20 09:00 11/25/20 18:11 DC 11/25/20 08:21 Donepezil HCl (Aricept) 10 mg DAILY PO 11/17/20 09:00 11/17/20 17:57 DC Famotidine (Pepcid) 10 mg DAILY PO 11/17/20 09:00 12/05/20 08:29 Finasteride (Proscar) 5 mg DAILY PO 11/17/20 09:00 12/05/20 08:28 Furosemide (Lasix) 20 mg DAILY PO 11/17/20 09:00 11/21/20 17:08 DC 11/21/20 09:37 Metoprolol Tartrate (Lopressor) 37.5 mg BID PO 11/16/20 21:00 11/25/20 18:11 DC 11/25/20 08:21 Ropinirole HCl (Requip) 1 mg DAILY PO 11/17/20 09:00 11/18/20 18:19 DC 11/18/20 08:23 Tamsulosin HCl (Flomax) 0.4 mg DAILY PO 11/17/20 09:00 12/05/20 08:28 Apixaban (Eliquis) 2.5 mg BID PO 11/16/20 21:00 12/05/20 08:30 Multivitamins/ Calcium (Thera-M Plus) 1 tab DAILY PO 11/17/20 09:00 12/05/20 08:28 Vitamin D (Vitamin D3) 1,000 unit DAILY PO 11/17/20 09:00 12/05/20 08:29 Olanzapine (ZyPREXA ZYDIS) 2.5 mg PRN Q2HR PRN PO PSYCHOSIS 11/16/20 23:00 11/30/20 00:32 Trazodone HCl (Desyrel) 50 mg PRN QHS PRN PO INSOMNIA, MAY REPEAT X1 11/16/20 23:00 12/02/20 21:45 Rivastigmine (Exelon) 1 patch DAILY TD 11/18/20 09:00 11/24/20 21:00 DC 11/24/20 08:31 Rivastigmine (Exelon) 1 patch DAILY TD 11/25/20 09:00 12/02/20 18:19 DC 12/02/20 07:49 Ropinirole HCl (Requip) 0.5 mg TID PO 11/18/20 21:00 12/05/20 08:29 Quetiapine Fumarate (SEROquel) 12.5 mg 0900,1700 PO 11/19/20 12:00 11/23/20 17:59 DC 11/23/20 15:27 Sertraline HCl (Zoloft) 25 mg DAILY PO 11/22/20 09:00 11/24/20 21:00 DC 11/24/20 08:31 Sertraline HCl (Zoloft) 50 mg DAILY PO 11/25/20 08:00 12/05/20 08:28 Mirtazapine (Remeron) 7.5 mg QHS PO 11/22/20 21:00 11/26/20 12:16 DC 11/25/20 19:56 Quetiapine Fumarate (SEROquel) 12.5 mg 0900,1300,1700,2100 PO 11/23/20 21:00 11/27/20 13:18 DC 11/26/20 08:58 Fluticasone Propionate (Flonase) 2 spray DAILY NS 11/25/20 09:00 12/05/20 08:28 Cetirizine HCl (ZyrTEC) 10 mg DAILY PO 11/25/20 09:00 12/05/20 08:29 Amlodipine Besylate (Norvasc) 5 mg DAILY PO 11/25/20 18:15 12/05/20 08:30 Metoprolol Tartrate (Lopressor) 25 mg BID PO 11/25/20 18:15 12/05/20 08:29 Mirtazapine (Remeron) 15 mg QHS PO 11/26/20 21:00 12/04/20 20:20 Dextrose/Sodium Chloride 1,000 ml @ 100 mls/hr Q10H IV 11/26/20 17:45 11/26/20 18:23 DC Dextrose 1,000 ml @ 75 mls/hr [id number] IV 11/26/20 18:30 11/27/20 20:05 DC 11/26/20 18:29 Melatonin (Melatonin) 3 mg PRN QHS PRN PO INSOMNIA 11/29/20 18:15 12/02/20 21:45 Melatonin (Melatonin) 3 mg QHS PO 11/29/20 21:00 12/04/20 20:19 Rivastigmine (Exelon 13.3mg) 1 patch DAILY TD 12/03/20 09:00 12/05/20 08:28 I have reviewed the current psychotropics carefully including drug interactions. Risk benefit ratio favors no change other than as noted in my dictated progress note. 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
[2020-12-05 16:08] VITALS: BP 103/60
[2020-12-05] MEDS: MELATONIN 3 MG TABLET PO SCH (20:22)
[2020-12-05] MEDS: MIRTAZAPINE 15 MG TABLET PO SCH (20:23)
--- NOTE | 2020-12-05 21:55 | PDOC ---
Exam Note: Chaitanya Note: Please also refer to the separate dictated note~for this date of service dictated separately.~Patient seen individually. Discussed the patient with Nursing staff reviewed the chart.~Reviewed interim history and current functioning. Reviewed vital signs,~Labs/ Radiology~and current medications noted below. Continue current treatment with the changes noted in the dictated addendum note Assessment: Vital Signs/I&O: Vital Signs Date Time Temp Pulse Resp B/P (MAP) Pulse Ox O2 Delivery O2 Flow Rate FiO2 12/05/20 20:22 63 103/60 12/05/20 16:08 97.4 16 94 12/04/20 20:26 Room Air I & O 12/04/20 12/04/20 12/05/20 15:00 23:00 07:00 Intake Total 480 ml 360 ml Balance 480 ml 360 ml Current Medications: Meds: Current Medications Medications (Trade) Dose Ordered Sig/Kwame Route PRN Reason Start Time Stop Time Status Last Admin Dose Admin Acetaminophen (Tylenol) 650 mg PRN Q6HRS PRN PO MILD PAIN / TEMP > 100.3'F 11/16/20 12:15 Multi-Ingredient Ointment (Analgesic [place]) 1 gokul PRN QID PRN TP MUSCLE PAIN 11/16/20 12:15 Al Hydroxide/Mg Hydroxide (Mylanta Plus Xs) 15 ml PRN AFTMEALHC PRN PO DYSPEPSIA 11/16/20 12:15 Magnesium Hydroxide (Milk Of Magnesia) 2,400 mg PRN QHS PRN PO CONSTIPATION 11/16/20 12:15 Allopurinol (Zyloprim) 100 mg DAILY PO 11/17/20 09:00 12/05/20 08:29 Amlodipine Besylate (Norvasc) 10 mg DAILY PO 11/17/20 09:00 11/25/20 18:11 DC 11/25/20 08:21 Donepezil HCl (Aricept) 10 mg DAILY PO 11/17/20 09:00 11/17/20 17:57 DC Famotidine (Pepcid) 10 mg DAILY PO 11/17/20 09:00 12/05/20 08:29 Finasteride (Proscar) 5 mg DAILY PO 11/17/20 09:00 12/05/20 08:28 Furosemide (Lasix) 20 mg DAILY PO 11/17/20 09:00 11/21/20 17:08 DC 11/21/20 09:37 Metoprolol Tartrate (Lopressor) 37.5 mg BID PO 11/16/20 21:00 11/25/20 18:11 DC 11/25/20 08:21 Ropinirole HCl (Requip) 1 mg DAILY PO 11/17/20 09:00 11/18/20 18:19 DC 11/18/20 08:23 Tamsulosin HCl (Flomax) 0.4 mg DAILY PO 11/17/20 09:00 12/05/20 08:28 Apixaban (Eliquis) 2.5 mg BID PO 11/16/20 21:00 12/05/20 20:23 Multivitamins/ Calcium (Thera-M Plus) 1 tab DAILY PO 11/17/20 09:00 12/05/20 08:28 Vitamin D (Vitamin D3) 1,000 unit DAILY PO 11/17/20 09:00 12/05/20 08:29 Olanzapine (ZyPREXA ZYDIS) 2.5 mg PRN Q2HR PRN PO PSYCHOSIS 11/16/20 23:00 12/05/20 11:53 Trazodone HCl (Desyrel) 50 mg PRN QHS PRN PO INSOMNIA, MAY REPEAT X1 11/16/20 23:00 12/02/20 21:45 Rivastigmine (Exelon) 1 patch DAILY TD 11/18/20 09:00 11/24/20 21:00 DC 11/24/20 08:31 Rivastigmine (Exelon) 1 patch DAILY TD 11/25/20 09:00 12/02/20 18:19 DC 12/02/20 07:49 Ropinirole HCl (Requip) 0.5 mg TID PO 11/18/20 21:00 12/05/20 20:22 Quetiapine Fumarate (SEROquel) 12.5 mg 0900,1700 PO 11/19/20 12:00 11/23/20 17:59 DC 11/23/20 15:27 Sertraline HCl (Zoloft) 25 mg DAILY PO 11/22/20 09:00 11/24/20 21:00 DC 11/24/20 08:31 Sertraline HCl (Zoloft) 50 mg DAILY PO 11/25/20 08:00 12/05/20 08:28 Mirtazapine (Remeron) 7.5 mg QHS PO 11/22/20 21:00 11/26/20 12:16 DC 11/25/20 19:56 Quetiapine Fumarate (SEROquel) 12.5 mg 0900,1300,1700,2100 PO 11/23/20 21:00 11/27/20 13:18 DC 11/26/20 08:58 Fluticasone Propionate (Flonase) 2 spray DAILY NS 11/25/20 09:00 12/05/20 08:28 Cetirizine HCl (ZyrTEC) 10 mg DAILY PO 11/25/20 09:00 12/05/20 08:29 Amlodipine Besylate (Norvasc) 5 mg DAILY PO 11/25/20 18:15 12/05/20 08:30 Metoprolol Tartrate (Lopressor) 25 mg BID PO 11/25/20 18:15 12/05/20 20:22 Mirtazapine (Remeron) 15 mg QHS PO 11/26/20 21:00 12/05/20 20:23 Dextrose/Sodium Chloride 1,000 ml @ 100 mls/hr Q10H IV 11/26/20 17:45 11/26/20 18:23 DC Dextrose 1,000 ml @ 75 mls/hr [id number] IV 11/26/20 18:30 11/27/20 20:05 DC 11/26/20 18:29 Melatonin (Melatonin) 3 mg PRN QHS PRN PO INSOMNIA 11/29/20 18:15 12/02/20 21:45 Melatonin (Melatonin) 3 mg QHS PO 11/29/20 21:00 12/05/20 20:22 Rivastigmine (Exelon 13.3mg) 1 patch DAILY TD 12/03/20 09:00 12/05/20 08:28 I have reviewed the current psychotropics carefully including drug interactions. Risk benefit ratio favors no change other than as noted in my dictated progress note. 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
[2020-12-06 05:43] VITALS: BP 122/59
[2020-12-06 07:55] LABS: FECAL OB PT NEGATIVE (NEG)
[2020-12-06] MEDS: RIVASTIGMINE 13.3MG PATCH. TD SCH (08:20)
[2020-12-06] MEDS: SERTRALINE 50 MG TABLET. PO SCH (08:21)
[2020-12-06] MEDS: FINASTERIDE 5 MG TABLET. PO SCH (08:21)
[2020-12-06] MEDS: FAMOTIDINE 20 MG TABLET PO SCH (08:21)
[2020-12-06] MEDS: rOPINIRole 0.5 MG TABLET. PO SCH ×3 (08:22→19:34)
[2020-12-06] MEDS: MULTIVITAMIN with MINERAL TABLET. PO SCH (08:22)
[2020-12-06] MEDS: CHOLECALCIFEROL (VITAMIN D3) 1,000 UNIT TABLET PO SCH (08:22)
[2020-12-06] MEDS: CETIRIZINE HCL 10 MG TABLET PO SCH (08:22)
[2020-12-06] MEDS: METOPROLOL TART IMMED RELEASE 25 MG TABLET. PO SCH ×2 (08:22→19:34)
[2020-12-06] MEDS: TAMSULOSIN 0.4 MG CAP.ER.24H. PO SCH (08:22)
[2020-12-06] MEDS: ALLOPURINOL 100 MG TABLET. PO SCH (08:22)
[2020-12-06] MEDS: amLODIPine BESYLATE 5 MG TABLET PO SCH (08:23)
[2020-12-06] MEDS: APIXABAN 2.5 MG TABLET PO SCH ×2 (08:23→19:34)
[2020-12-06] MEDS: FLUTICASONE 50MCG/NASAL SPRAY 16GM BOTTLE. NS SCH (08:25)
[2020-12-06 15:39] VITALS: BP 106/70
[2020-12-06] MEDS: MIRTAZAPINE 15 MG TABLET PO SCH (19:33)
[2020-12-06] MEDS: MELATONIN 3 MG TABLET PO SCH (19:34)
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
--- NOTE | 2020-12-06 22:00 | PDOC ---
Exam Note: Chaitanya Note: Please also refer to the separate dictated note~for this date of service dictated separately.~Patient seen individually. Discussed the patient with Nursing staff reviewed the chart.~Reviewed interim history and current functioning. Reviewed vital signs,~Labs/ Radiology~and current medications noted below. Continue current treatment with the changes noted in the dictated addendum note Assessment: Vital Signs/I&O: Vital Signs Date Time Temp Pulse Resp B/P (MAP) Pulse Ox O2 Delivery O2 Flow Rate FiO2 12/06/20 19:34 47 106/70 12/06/20 15:39 97.6 18 98 12/04/20 20:26 Room Air I & O 12/05/20 12/05/20 12/06/20 15:00 23:00 07:00 Intake Total 360 ml 320 ml 720 ml Output Total 360 ml Balance 0 ml 320 ml 720 ml Labs: Laboratory Tests Test 12/06/20 05:00 12/06/20 06:00 Ferritin 57 ng/mL ([id number]) Stool Occult Blood Negative (NEG) Current Medications: Meds: Laboratory Tests Test 12/06/20 05:00 12/06/20 06:00 Ferritin 57 ng/mL Stool Occult Blood Negative Current Medications Medications (Trade) Dose Ordered Sig/Kwame Route PRN Reason Start Time Stop Time Status Last Admin Dose Admin Acetaminophen (Tylenol) 650 mg PRN Q6HRS PRN PO MILD PAIN / TEMP > 100.3'F 11/16/20 12:15 Multi-Ingredient Ointment (Analgesic [place]) 1 gokul PRN QID PRN TP MUSCLE PAIN 11/16/20 12:15 Al Hydroxide/Mg Hydroxide (Mylanta Plus Xs) 15 ml PRN AFTMEALHC PRN PO DYSPEPSIA 11/16/20 12:15 Magnesium Hydroxide (Milk Of Magnesia) 2,400 mg PRN QHS PRN PO CONSTIPATION 11/16/20 12:15 Allopurinol (Zyloprim) 100 mg DAILY PO 11/17/20 09:00 12/06/20 08:22 Amlodipine Besylate (Norvasc) 10 mg DAILY PO 11/17/20 09:00 11/25/20 18:11 DC 11/25/20 08:21 Donepezil HCl (Aricept) 10 mg DAILY PO 11/17/20 09:00 11/17/20 17:57 DC Famotidine (Pepcid) 10 mg DAILY PO 11/17/20 09:00 12/06/20 08:21 Finasteride (Proscar) 5 mg DAILY PO 11/17/20 09:00 12/06/20 08:21 Furosemide (Lasix) 20 mg DAILY PO 11/17/20 09:00 11/21/20 17:08 DC 11/21/20 09:37 Metoprolol Tartrate (Lopressor) 37.5 mg BID PO 11/16/20 21:00 11/25/20 18:11 DC 11/25/20 08:21 Ropinirole HCl (Requip) 1 mg DAILY PO 11/17/20 09:00 11/18/20 18:19 DC 11/18/20 08:23 Tamsulosin HCl (Flomax) 0.4 mg DAILY PO 11/17/20 09:00 12/06/20 08:22 Apixaban (Eliquis) 2.5 mg BID PO 11/16/20 21:00 12/06/20 19:34 Multivitamins/ Calcium (Thera-M Plus) 1 tab DAILY PO 11/17/20 09:00 12/06/20 08:22 Vitamin D (Vitamin D3) 1,000 unit DAILY PO 11/17/20 09:00 12/06/20 08:22 Olanzapine (ZyPREXA ZYDIS) 2.5 mg PRN Q2HR PRN PO PSYCHOSIS 11/16/20 23:00 12/05/20 11:53 Trazodone HCl (Desyrel) 50 mg PRN QHS PRN PO INSOMNIA, MAY REPEAT X1 11/16/20 23:00 12/02/20 21:45 Rivastigmine (Exelon) 1 patch DAILY TD 11/18/20 09:00 11/24/20 21:00 DC 11/24/20 08:31 Rivastigmine (Exelon) 1 patch DAILY TD 11/25/20 09:00 12/02/20 18:19 DC 12/02/20 07:49 Ropinirole HCl (Requip) 0.5 mg TID PO 11/18/20 21:00 12/06/20 19:34 Quetiapine Fumarate (SEROquel) 12.5 mg 0900,1700 PO 11/19/20 12:00 11/23/20 17:59 DC 11/23/20 15:27 Sertraline HCl (Zoloft) 25 mg DAILY PO 11/22/20 09:00 11/24/20 21:00 DC 11/24/20 08:31 Sertraline HCl (Zoloft) 50 mg DAILY PO 11/25/20 08:00 12/06/20 08:21 Mirtazapine (Remeron) 7.5 mg QHS PO 11/22/20 21:00 11/26/20 12:16 DC 11/25/20 19:56 Quetiapine Fumarate (SEROquel) 12.5 mg 0900,1300,1700,2100 PO 11/23/20 21:00 11/27/20 13:18 DC 11/26/20 08:58 Fluticasone Propionate (Flonase) 2 spray DAILY NS 11/25/20 09:00 12/06/20 08:25 Cetirizine HCl (ZyrTEC) 10 mg DAILY PO 11/25/20 09:00 12/06/20 08:22 Amlodipine Besylate (Norvasc) 5 mg DAILY PO 11/25/20 18:15 12/06/20 08:23 Metoprolol Tartrate (Lopressor) 25 mg BID PO 11/25/20 18:15 12/06/20 08:22 Mirtazapine (Remeron) 15 mg QHS PO 11/26/20 21:00 12/06/20 19:33 Dextrose/Sodium Chloride 1,000 ml @ 100 mls/hr Q10H IV 11/26/20 17:45 11/26/20 18:23 DC Dextrose 1,000 ml @ 75 mls/hr [id number] IV 11/26/20 18:30 11/27/20 20:05 DC 11/26/20 18:29 Melatonin (Melatonin) 3 mg PRN QHS PRN PO INSOMNIA 11/29/20 18:15 12/02/20 21:45 Melatonin (Melatonin) 3 mg QHS PO 11/29/20 21:00 12/06/20 19:34 Rivastigmine (Exelon 13.3mg) 1 patch DAILY TD 12/03/20 09:00 12/06/20 08:20 Ferrous Sulfate (Feosol) 325 mg DAILYWBKFT PO 12/07/20 08:00 Ascorbic Acid (Vitamin C) 500 mg DAILY PO 12/07/20 09:00 I have reviewed the current psychotropics carefully including drug interactions. Risk benefit ratio favors no change other than as noted in my dictated progress note. 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
[2020-12-07 06:05] VITALS: BP 119/63
[2020-12-07] MEDS: SERTRALINE 50 MG TABLET. PO SCH (08:02)
[2020-12-07] MEDS: TAMSULOSIN 0.4 MG CAP.ER.24H. PO SCH (08:02)
[2020-12-07] MEDS: CHOLECALCIFEROL (VITAMIN D3) 1,000 UNIT TABLET PO SCH (08:02)
[2020-12-07] MEDS: CETIRIZINE HCL 10 MG TABLET PO SCH (08:02)
[2020-12-07] MEDS: ASCORBIC ACID 500 MG TABLET PO SCH (08:02)
[2020-12-07] MEDS: FINASTERIDE 5 MG TABLET. PO SCH (08:02)
[2020-12-07] MEDS: rOPINIRole 0.5 MG TABLET. PO SCH ×3 (08:02→20:27)
[2020-12-07] MEDS: APIXABAN 2.5 MG TABLET PO SCH ×2 (08:03→20:24)
[2020-12-07] MEDS: FAMOTIDINE 20 MG TABLET PO SCH (08:03)
[2020-12-07] MEDS: FERROUS SULFATE 325 MG TABLET. PO SCH (08:04)
[2020-12-07] MEDS: ALLOPURINOL 100 MG TABLET. PO SCH (08:04)
[2020-12-07] MEDS: MULTIVITAMIN with MINERAL TABLET. PO SCH (08:04)
[2020-12-07] MEDS: amLODIPine BESYLATE 5 MG TABLET PO SCH ×2 (08:05→08:15)
[2020-12-07] MEDS: FLUTICASONE 50MCG/NASAL SPRAY 16GM BOTTLE. NS SCH (08:05)
[2020-12-07] MEDS: RIVASTIGMINE 13.3MG PATCH. TD SCH (08:05)
[2020-12-07] MEDS: METOPROLOL TART IMMED RELEASE 25 MG TABLET. PO SCH ×2 (08:14→20:26)
--- NOTE | 2020-12-07 09:09 | PDOC ---
Exam Note: Chaitanya Note: This note is a late entry for 12/06/2020 covers elements not covered in my initial note. Subjective: The patient was seen individually in the evening of 12/06/2020 with Cintia RN, discussed and reviewed the chart. He slept 6 hours previous night. The patient is compliant with medications. He is somewhat anemic. Fecal occult blood is being done. We will defer to Dr. Wray. Review of Systems: No CV, , pulmonary, eye, ENT system symptoms on review. Mental Status Exam: The patient is oriented to himself. He is not grabbing out at things like he was a few days back, more appropriate during the individual visit. No suicidal or homicidal ideation. Attention span is short. Language function is intact. Mood and affect improved. Laboratory Data: Reviewed. Impression: Major neurocognitive disorder, Alzheimer vascular with delusion, depression, behavioral disturbance. Anxiety disorder unspecified. Impulse control disorder unspecified. Plan: No change from initial note. Assessment: Vital Signs/I&O: Vital Signs Date Time Temp Pulse Resp B/P (MAP) Pulse Ox O2 Delivery O2 Flow Rate FiO2 12/07/20 08:15 81 131/81 12/07/20 06:05 96.7 16 100 Room Air I & O 12/06/20 12/06/20 12/07/20 15:00 23:00 07:00 Intake Total 600 ml 460 ml Balance 600 ml 460 ml Current Medications: Meds: Current Medications Medications (Trade) Dose Ordered Sig/Kwame Route PRN Reason Start Time Stop Time Status Last Admin Dose Admin Acetaminophen (Tylenol) 650 mg PRN Q6HRS PRN PO MILD PAIN / TEMP > 100.3'F 11/16/20 12:15 Multi-Ingredient Ointment (Analgesic [place]) 1 gokul PRN QID PRN TP MUSCLE PAIN 11/16/20 12:15 Al Hydroxide/Mg Hydroxide (Mylanta Plus Xs) 15 ml PRN AFTMEALHC PRN PO DYSPEPSIA 11/16/20 12:15 Magnesium Hydroxide (Milk Of Magnesia) 2,400 mg PRN QHS PRN PO CONSTIPATION 11/16/20 12:15 Allopurinol (Zyloprim) 100 mg DAILY PO 11/17/20 09:00 12/07/20 08:04 Amlodipine Besylate (Norvasc) 10 mg DAILY PO 11/17/20 09:00 11/25/20 18:11 DC 11/25/20 08:21 Donepezil HCl (Aricept) 10 mg DAILY PO 11/17/20 09:00 11/17/20 17:57 DC Famotidine (Pepcid) 10 mg DAILY PO 11/17/20 09:00 12/07/20 08:03 Finasteride (Proscar) 5 mg DAILY PO 11/17/20 09:00 12/07/20 08:02 Furosemide (Lasix) 20 mg DAILY PO 11/17/20 09:00 11/21/20 17:08 DC 11/21/20 09:37 Metoprolol Tartrate (Lopressor) 37.5 mg BID PO 11/16/20 21:00 11/25/20 18:11 DC 11/25/20 08:21 Ropinirole HCl (Requip) 1 mg DAILY PO 11/17/20 09:00 11/18/20 18:19 DC 11/18/20 08:23 Tamsulosin HCl (Flomax) 0.4 mg DAILY PO 11/17/20 09:00 12/07/20 08:02 Apixaban (Eliquis) 2.5 mg BID PO 11/16/20 21:00 12/07/20 08:03 Multivitamins/ Calcium (Thera-M Plus) 1 tab DAILY PO 11/17/20 09:00 12/07/20 08:04 Vitamin D (Vitamin D3) 1,000 unit DAILY PO 11/17/20 09:00 12/07/20 08:02 Olanzapine (ZyPREXA ZYDIS) 2.5 mg PRN Q2HR PRN PO PSYCHOSIS 11/16/20 23:00 12/05/20 11:53 Trazodone HCl (Desyrel) 50 mg PRN QHS PRN PO INSOMNIA, MAY REPEAT X1 11/16/20 23:00 12/02/20 21:45 Rivastigmine (Exelon) 1 patch DAILY TD 11/18/20 09:00 11/24/20 21:00 DC 11/24/20 08:31 Rivastigmine (Exelon) 1 patch DAILY TD 11/25/20 09:00 12/02/20 18:19 DC 12/02/20 07:49 Ropinirole HCl (Requip) 0.5 mg TID PO 11/18/20 21:00 12/07/20 08:02 Quetiapine Fumarate (SEROquel) 12.5 mg 0900,1700 PO 11/19/20 12:00 11/23/20 17:59 DC 11/23/20 15:27 Sertraline HCl (Zoloft) 25 mg DAILY PO 11/22/20 09:00 11/24/20 21:00 DC 11/24/20 08:31 Sertraline HCl (Zoloft) 50 mg DAILY PO 11/25/20 08:00 12/07/20 08:02 Mirtazapine (Remeron) 7.5 mg QHS PO 11/22/20 21:00 11/26/20 12:16 DC 11/25/20 19:56 Quetiapine Fumarate (SEROquel) 12.5 mg 0900,1300,1700,2100 PO 11/23/20 21:00 11/27/20 13:18 DC 11/26/20 08:58 Fluticasone Propionate (Flonase) 2 spray DAILY NS 11/25/20 09:00 12/07/20 08:05 Cetirizine HCl (ZyrTEC) 10 mg DAILY PO 11/25/20 09:00 12/07/20 08:02 Amlodipine Besylate (Norvasc) 5 mg DAILY PO 11/25/20 18:15 12/07/20 08:15 Metoprolol Tartrate (Lopressor) 25 mg BID PO 11/25/20 18:15 12/07/20 08:14 Mirtazapine (Remeron) 15 mg QHS PO 11/26/20 21:00 12/06/20 19:33 Dextrose/Sodium Chloride 1,000 ml @ 100 mls/hr Q10H IV 11/26/20 17:45 11/26/20 18:23 DC Dextrose 1,000 ml @ 75 mls/hr [id number] IV 11/26/20 18:30 11/27/20 20:05 DC 11/26/20 18:29 Melatonin (Melatonin) 3 mg PRN QHS PRN PO INSOMNIA 11/29/20 18:15 12/02/20 21:45 Melatonin (Melatonin) 3 mg QHS PO 11/29/20 21:00 12/06/20 19:34 Rivastigmine (Exelon 13.3mg) 1 patch DAILY TD 12/03/20 09:00 12/07/20 08:05 Ferrous Sulfate (Feosol) 325 mg DAILYWBKFT PO 12/07/20 08:00 12/07/20 08:04 Ascorbic Acid (Vitamin C) 500 mg DAILY PO 12/07/20 09:00 12/07/20 08:02 Current Medications Medications (Trade) Dose Ordered Sig/Kwame Route PRN Reason Start Time Stop Time Status Last Admin Dose Admin Ferrous Sulfate (Feosol) 325 mg DAILYWBKFT PO 12/07/20 08:00 12/07/20 08:04 Ascorbic Acid (Vitamin C) 500 mg DAILY PO 12/07/20 09:00 12/07/20 08:02 I have reviewed the current psychotropics carefully including drug interactions. Risk benefit ratio favors no change other than as noted in my dictated progress note. 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
[2020-12-07 15:51] VITALS: BP 111/71
[2020-12-07] MEDS: MIRTAZAPINE 15 MG TABLET PO SCH (20:24)
[2020-12-07] MEDS: MELATONIN 3 MG TABLET PO SCH (20:26)
--- NOTE | 2020-12-07 21:39 | PDOC ---
Exam Note: Chaitanya Note: Please also refer to the separate dictated note~for this date of service dictated separately.~Patient seen individually. Discussed the patient with Nursing staff reviewed the chart.~Reviewed interim history and current functioning. Reviewed vital signs,~Labs/ Radiology~and current medications noted below. Continue current treatment with the changes noted in the dictated addendum note Assessment: Vital Signs/I&O: Vital Signs Date Time Temp Pulse Resp B/P (MAP) Pulse Ox O2 Delivery O2 Flow Rate FiO2 12/07/20 15:51 96.8 53 16 111/71 (84) 97 Room Air I & O 12/06/20 12/06/20 12/07/20 15:00 23:00 07:00 Intake Total 600 ml 460 ml Balance 600 ml 460 ml Current Medications: Meds: Current Medications Medications (Trade) Dose Ordered Sig/Kwame Route PRN Reason Start Time Stop Time Status Last Admin Dose Admin Acetaminophen (Tylenol) 650 mg PRN Q6HRS PRN PO MILD PAIN / TEMP > 100.3'F 11/16/20 12:15 Multi-Ingredient Ointment (Analgesic [place]) 1 gokul PRN QID PRN TP MUSCLE PAIN 11/16/20 12:15 Al Hydroxide/Mg Hydroxide (Mylanta Plus Xs) 15 ml PRN AFTMEALHC PRN PO DYSPEPSIA 11/16/20 12:15 Magnesium Hydroxide (Milk Of Magnesia) 2,400 mg PRN QHS PRN PO CONSTIPATION 11/16/20 12:15 Allopurinol (Zyloprim) 100 mg DAILY PO 11/17/20 09:00 12/07/20 08:04 Amlodipine Besylate (Norvasc) 10 mg DAILY PO 11/17/20 09:00 11/25/20 18:11 DC 11/25/20 08:21 Donepezil HCl (Aricept) 10 mg DAILY PO 11/17/20 09:00 11/17/20 17:57 DC Famotidine (Pepcid) 10 mg DAILY PO 11/17/20 09:00 12/07/20 08:03 Finasteride (Proscar) 5 mg DAILY PO 11/17/20 09:00 12/07/20 08:02 Furosemide (Lasix) 20 mg DAILY PO 11/17/20 09:00 11/21/20 17:08 DC 11/21/20 09:37 Metoprolol Tartrate (Lopressor) 37.5 mg BID PO 11/16/20 21:00 11/25/20 18:11 DC 11/25/20 08:21 Ropinirole HCl (Requip) 1 mg DAILY PO 11/17/20 09:00 11/18/20 18:19 DC 11/18/20 08:23 Tamsulosin HCl (Flomax) 0.4 mg DAILY PO 11/17/20 09:00 12/07/20 08:02 Apixaban (Eliquis) 2.5 mg BID PO 11/16/20 21:00 12/07/20 20:24 Multivitamins/ Calcium (Thera-M Plus) 1 tab DAILY PO 11/17/20 09:00 12/07/20 08:04 Vitamin D (Vitamin D3) 1,000 unit DAILY PO 11/17/20 09:00 12/07/20 08:02 Olanzapine (ZyPREXA ZYDIS) 2.5 mg PRN Q2HR PRN PO PSYCHOSIS 11/16/20 23:00 12/05/20 11:53 Trazodone HCl (Desyrel) 50 mg PRN QHS PRN PO INSOMNIA, MAY REPEAT X1 11/16/20 23:00 12/02/20 21:45 Rivastigmine (Exelon) 1 patch DAILY TD 11/18/20 09:00 11/24/20 21:00 DC 11/24/20 08:31 Rivastigmine (Exelon) 1 patch DAILY TD 11/25/20 09:00 12/02/20 18:19 DC 12/02/20 07:49 Ropinirole HCl (Requip) 0.5 mg TID PO 11/18/20 21:00 12/07/20 20:27 Quetiapine Fumarate (SEROquel) 12.5 mg 0900,1700 PO 11/19/20 12:00 11/23/20 17:59 DC 11/23/20 15:27 Sertraline HCl (Zoloft) 25 mg DAILY PO 11/22/20 09:00 11/24/20 21:00 DC 11/24/20 08:31 Sertraline HCl (Zoloft) 50 mg DAILY PO 11/25/20 08:00 12/07/20 08:02 Mirtazapine (Remeron) 7.5 mg QHS PO 11/22/20 21:00 11/26/20 12:16 DC 11/25/20 19:56 Quetiapine Fumarate (SEROquel) 12.5 mg 0900,1300,1700,2100 PO 11/23/20 21:00 11/27/20 13:18 DC 11/26/20 08:58 Fluticasone Propionate (Flonase) 2 spray DAILY NS 11/25/20 09:00 12/07/20 08:05 Cetirizine HCl (ZyrTEC) 10 mg DAILY PO 11/25/20 09:00 12/07/20 08:02 Amlodipine Besylate (Norvasc) 5 mg DAILY PO 11/25/20 18:15 12/07/20 08:15 Metoprolol Tartrate (Lopressor) 25 mg BID PO 11/25/20 18:15 12/07/20 08:14 Mirtazapine (Remeron) 15 mg QHS PO 11/26/20 21:00 12/07/20 20:24 Dextrose/Sodium Chloride 1,000 ml @ 100 mls/hr Q10H IV 11/26/20 17:45 11/26/20 18:23 DC Dextrose 1,000 ml @ 75 mls/hr [id number] IV 11/26/20 18:30 11/27/20 20:05 DC 11/26/20 18:29 Melatonin (Melatonin) 3 mg PRN QHS PRN PO INSOMNIA 11/29/20 18:15 12/02/20 21:45 Melatonin (Melatonin) 3 mg QHS PO 11/29/20 21:00 12/07/20 20:26 Rivastigmine (Exelon 13.3mg) 1 patch DAILY TD 12/03/20 09:00 12/07/20 08:05 Ferrous Sulfate (Feosol) 325 mg DAILYWBKFT PO 12/07/20 08:00 12/07/20 08:04 Ascorbic Acid (Vitamin C) 500 mg DAILY PO 12/07/20 09:00 12/07/20 08:02 Current Medications Medications (Trade) Dose Ordered Sig/Kwame Route PRN Reason Start Time Stop Time Status Last Admin Dose Admin Ferrous Sulfate (Feosol) 325 mg DAILYWBKFT PO 12/07/20 08:00 12/07/20 08:04 Ascorbic Acid (Vitamin C) 500 mg DAILY PO 12/07/20 09:00 12/07/20 08:02 I have reviewed the current psychotropics carefully including drug interactions. Risk benefit ratio favors no change other than as noted in my dictated progress note. 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
[2020-12-08 06:49] VITALS: BP 103/64
--- NOTE | 2020-12-08 08:39 | PDOC ---
Exam Note: Chaitanya Note: This note is a late entry for 12/07/2020 covers elements not covered in my initial note. Subjective: The patient was seen individually in the evening of 12/07/2020 with Prema PENNY, discussed and reviewed the chart. He slept 6-3/4 hours previous night. The patient has been confused, but wandering the unit. He is less psychotic. Review of Systems: No CV, , pulmonary, eye, ENT system symptoms on review. Mental Status Exam: The patient is oriented to himself. He is pleasant, verbal, interactive, smiling as I met with him. No active hallucinations, suicidal or homicidal ideation. Speech coherent. Abstraction fair. Attention span is short. Language function is intact. Mood and affect less psychotic, confused. Laboratory Data: Reviewed. Impression: Major neurocognitive disorder, Alzheimer vascular with delusion, depression, behavioral disturbance. Anxiety disorder unspecified. Impulse control disorder unspecified. Plan: No change from initial note. Dr. Zaman will be covering for me from Thursday through December 22, 2020. Assessment: Vital Signs/I&O: Vital Signs Date Time Temp Pulse Resp B/P (MAP) Pulse Ox O2 Delivery O2 Flow Rate FiO2 12/08/20 06:49 98.2 43 16 103/64 (77) 94 Room Air I & O 12/07/20 12/07/20 12/08/20 15:00 23:00 07:00 Intake Total 600 ml 480 ml Balance 600 ml 480 ml Current Medications: Meds: Current Medications Medications (Trade) Dose Ordered Sig/Kwame Route PRN Reason Start Time Stop Time Status Last Admin Dose Admin Acetaminophen (Tylenol) 650 mg PRN Q6HRS PRN PO MILD PAIN / TEMP > 100.3'F 11/16/20 12:15 Multi-Ingredient Ointment (Analgesic [place]) 1 gokul PRN QID PRN TP MUSCLE PAIN 11/16/20 12:15 Al Hydroxide/Mg Hydroxide (Mylanta Plus Xs) 15 ml PRN AFTMEALHC PRN PO DYSPEPSIA 11/16/20 12:15 Magnesium Hydroxide (Milk Of Magnesia) 2,400 mg PRN QHS PRN PO CONSTIPATION 11/16/20 12:15 Allopurinol (Zyloprim) 100 mg DAILY PO 11/17/20 09:00 12/07/20 08:04 Amlodipine Besylate (Norvasc) 10 mg DAILY PO 11/17/20 09:00 11/25/20 18:11 DC 11/25/20 08:21 Donepezil HCl (Aricept) 10 mg DAILY PO 11/17/20 09:00 11/17/20 17:57 DC Famotidine (Pepcid) 10 mg DAILY PO 11/17/20 09:00 12/07/20 08:03 Finasteride (Proscar) 5 mg DAILY PO 11/17/20 09:00 12/07/20 08:02 Furosemide (Lasix) 20 mg DAILY PO 11/17/20 09:00 11/21/20 17:08 DC 11/21/20 09:37 Metoprolol Tartrate (Lopressor) 37.5 mg BID PO 11/16/20 21:00 11/25/20 18:11 DC 11/25/20 08:21 Ropinirole HCl (Requip) 1 mg DAILY PO 11/17/20 09:00 11/18/20 18:19 DC 11/18/20 08:23 Tamsulosin HCl (Flomax) 0.4 mg DAILY PO 11/17/20 09:00 12/07/20 08:02 Apixaban (Eliquis) 2.5 mg BID PO 11/16/20 21:00 12/07/20 20:24 Multivitamins/ Calcium (Thera-M Plus) 1 tab DAILY PO 11/17/20 09:00 12/07/20 08:04 Vitamin D (Vitamin D3) 1,000 unit DAILY PO 11/17/20 09:00 12/07/20 08:02 Olanzapine (ZyPREXA ZYDIS) 2.5 mg PRN Q2HR PRN PO PSYCHOSIS 11/16/20 23:00 12/05/20 11:53 Trazodone HCl (Desyrel) 50 mg PRN QHS PRN PO INSOMNIA, MAY REPEAT X1 11/16/20 23:00 12/02/20 21:45 Rivastigmine (Exelon) 1 patch DAILY TD 11/18/20 09:00 11/24/20 21:00 DC 11/24/20 08:31 Rivastigmine (Exelon) 1 patch DAILY TD 11/25/20 09:00 12/02/20 18:19 DC 12/02/20 07:49 Ropinirole HCl (Requip) 0.5 mg TID PO 11/18/20 21:00 12/07/20 20:27 Quetiapine Fumarate (SEROquel) 12.5 mg 0900,1700 PO 11/19/20 12:00 11/23/20 17:59 DC 11/23/20 15:27 Sertraline HCl (Zoloft) 25 mg DAILY PO 11/22/20 09:00 11/24/20 21:00 DC 11/24/20 08:31 Sertraline HCl (Zoloft) 50 mg DAILY PO 11/25/20 08:00 12/07/20 08:02 Mirtazapine (Remeron) 7.5 mg QHS PO 11/22/20 21:00 11/26/20 12:16 DC 11/25/20 19:56 Quetiapine Fumarate (SEROquel) 12.5 mg 0900,1300,1700,2100 PO 11/23/20 21:00 11/27/20 13:18 DC 11/26/20 08:58 Fluticasone Propionate (Flonase) 2 spray DAILY NS 11/25/20 09:00 12/07/20 08:05 Cetirizine HCl (ZyrTEC) 10 mg DAILY PO 11/25/20 09:00 12/07/20 08:02 Amlodipine Besylate (Norvasc) 5 mg DAILY PO 11/25/20 18:15 12/07/20 08:15 Metoprolol Tartrate (Lopressor) 25 mg BID PO 11/25/20 18:15 12/07/20 08:14 Mirtazapine (Remeron) 15 mg QHS PO 11/26/20 21:00 12/07/20 20:24 Dextrose/Sodium Chloride 1,000 ml @ 100 mls/hr Q10H IV 11/26/20 17:45 11/26/20 18:23 DC Dextrose 1,000 ml @ 75 mls/hr [id number] IV 11/26/20 18:30 11/27/20 20:05 DC 11/26/20 18:29 Melatonin (Melatonin) 3 mg PRN QHS PRN PO INSOMNIA 11/29/20 18:15 12/02/20 21:45 Melatonin (Melatonin) 3 mg QHS PO 11/29/20 21:00 12/07/20 20:26 Rivastigmine (Exelon 13.3mg) 1 patch DAILY TD 12/03/20 09:00 12/07/20 08:05 Ferrous Sulfate (Feosol) 325 mg DAILYWBKFT PO 12/07/20 08:00 12/07/20 08:04 Ascorbic Acid (Vitamin C) 500 mg DAILY PO 12/07/20 09:00 12/07/20 08:02 Docusate Sodium (Colace Solution) 100 mg DAILY PO 12/08/20 09:00 Current Medications Medications (Trade) Dose Ordered Sig/Kwame Route PRN Reason Start Time Stop Time Status Last Admin Dose Admin Ascorbic Acid (Vitamin C) 500 mg DAILY PO 12/07/20 09:00 12/07/20 08:02 I have reviewed the current psychotropics carefully including drug interactions. Risk benefit ratio favors no change other than as noted in my dictated progress note. 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
[2020-12-08] MEDS: METOPROLOL TART IMMED RELEASE 25 MG TABLET. PO SCH ×2 (09:00→20:03)
[2020-12-08] MEDS: amLODIPine BESYLATE 5 MG TABLET PO SCH (09:00)
[2020-12-08] MEDS: CETIRIZINE HCL 10 MG TABLET PO SCH (09:02)
[2020-12-08] MEDS: TAMSULOSIN 0.4 MG CAP.ER.24H. PO SCH (09:02)
[2020-12-08] MEDS: FERROUS SULFATE 325 MG TABLET. PO SCH (09:02)
[2020-12-08] MEDS: CHOLECALCIFEROL (VITAMIN D3) 1,000 UNIT TABLET PO SCH (09:02)
[2020-12-08] MEDS: ALLOPURINOL 100 MG TABLET. PO SCH (09:03)
[2020-12-08] MEDS: rOPINIRole 0.5 MG TABLET. PO SCH ×3 (09:03→20:01)
[2020-12-08] MEDS: SERTRALINE 50 MG TABLET. PO SCH (09:03)
[2020-12-08] MEDS: APIXABAN 2.5 MG TABLET PO SCH ×2 (09:03→20:02)
[2020-12-08] MEDS: FAMOTIDINE 20 MG TABLET PO SCH (09:03)
[2020-12-08] MEDS: FINASTERIDE 5 MG TABLET. PO SCH (09:04)
[2020-12-08] MEDS: ASCORBIC ACID 500 MG TABLET PO SCH (09:04)
[2020-12-08] MEDS: MULTIVITAMIN with MINERAL TABLET. PO SCH (09:04)
[2020-12-08] MEDS: FLUTICASONE 50MCG/NASAL SPRAY 16GM BOTTLE. NS SCH (09:05)
[2020-12-08] MEDS: DOCUSATE 100 MG/10 ML SOLUTION. PO SCH (09:05)
[2020-12-08] MEDS: RIVASTIGMINE 13.3MG PATCH. TD SCH (09:05)
[2020-12-08 16:41] VITALS: BP 113/65
[2020-12-08] MEDS: MELATONIN 3 MG TABLET PO SCH (20:01)
[2020-12-08] MEDS: MIRTAZAPINE 15 MG TABLET PO SCH (20:01)
--- NOTE | 2020-12-08 20:06 | PN ---
DATE: 12/08/2020 SUBJECTIVE: The patient was seen today, met with the staff, chart reviewed and also covering for Dr. Campbell. Staff reports no major behavior problems and is medication compliant. No falls. He is withdrawn, isolative, slow mentation and also decreased psychomotor activity and noncommunicative most of the time. OBSERVATION: VITAL SIGNS: Temperature 98.2, blood pressure 103/64, pulse 72, respirations 16, O2 sat 93%. GENERAL: Slept about 6 hours last night. The patient's appetite is fair. DATA: The patient's lab reviewed and also his medications and is currently on Exelon patch 13.3 mg daily, melatonin 3 mg at night, mirtazapine 15 mg at night, Zoloft 50 mg daily, trazodone 50 mg at night p.r.n. and also olanzapine 2.5 mg q. 2 hours p.r.n. The patient apparently doing fairly well. No side effects. ASSESSMENT: Major neurocognitive disorder, Alzheimer's, depression and delusions, generalized anxiety disorder and Lewy body disease. TREATMENT: Continue with the current treatment plan. LENGTH OF STAY: 7 days. STEVE FULTON MD DR: RICKIE/cristina JOB#: [id number] / [id number] COURT
[2020-12-09 05:59] VITALS: BP 150/85
[2020-12-09] MEDS: ASCORBIC ACID 500 MG TABLET PO SCH (08:14)
[2020-12-09] MEDS: DOCUSATE 100 MG/10 ML SOLUTION. PO SCH (08:14)
[2020-12-09] MEDS: FINASTERIDE 5 MG TABLET. PO SCH (08:14)
[2020-12-09] MEDS: MULTIVITAMIN with MINERAL TABLET. PO SCH (08:14)
[2020-12-09] MEDS: rOPINIRole 0.5 MG TABLET. PO SCH ×3 (08:14→20:04)
[2020-12-09] MEDS: amLODIPine BESYLATE 5 MG TABLET PO SCH (08:14)
[2020-12-09] MEDS: CHOLECALCIFEROL (VITAMIN D3) 1,000 UNIT TABLET PO SCH (08:14)
[2020-12-09] MEDS: SERTRALINE 50 MG TABLET. PO SCH (08:14)
[2020-12-09] MEDS: METOPROLOL TART IMMED RELEASE 25 MG TABLET. PO SCH ×2 (08:15→20:04)
[2020-12-09] MEDS: ALLOPURINOL 100 MG TABLET. PO SCH (08:15)
[2020-12-09] MEDS: FAMOTIDINE 20 MG TABLET PO SCH (08:15)
[2020-12-09] MEDS: APIXABAN 2.5 MG TABLET PO SCH ×2 (08:15→20:05)
[2020-12-09] MEDS: FERROUS SULFATE 325 MG TABLET. PO SCH (08:15)
[2020-12-09] MEDS: CETIRIZINE HCL 10 MG TABLET PO SCH (08:15)
[2020-12-09] MEDS: TAMSULOSIN 0.4 MG CAP.ER.24H. PO SCH (08:15)
[2020-12-09] MEDS: FLUTICASONE 50MCG/NASAL SPRAY 16GM BOTTLE. NS SCH (08:16)
[2020-12-09] MEDS: RIVASTIGMINE 13.3MG PATCH. TD SCH (08:17)
[2020-12-09 09:50] LABS: HEMATOCRIT 33.9 % (39.0-53.0); HEMOGLOBIN 10.8 g/dL (13.0-17.5); RED BLOOD COUNT 3.81 x10^6/uL (4.30-5.70); RED CELL DISTRIBUTION WIDTH 16.1 % (11.5-14.5); WHITE BLOOD COUNT 4.4 x10^3/uL (4.0-11.0)
[2020-12-09 16:22] VITALS: BP 131/69
[2020-12-09] MEDS: MIRTAZAPINE 15 MG TABLET PO SCH (20:04)
[2020-12-09] MEDS: MELATONIN 3 MG TABLET PO SCH (20:05)
--- NOTE | 2020-12-09 20:34 | PN ---
DATE: 12/09/2020 SUBJECTIVE: The patient was seen today, met with the staff, chart reviewed and also covering for Dr. Campbell. The patient continues to have behavior problems, increased confusion, wandering and also sexually inappropriate at times and also masturbating in bed. OBSERVATION: VITAL SIGNS: Temperature 97.9, blood pressure 150/85, pulse 59, respirations 20, O2 sat 96%. GENERAL: Slept about 4 hours last night. The patient is not having any side effects to the medications. CURRENT MEDICATIONS: Include Exelon patch 13.3 mg daily, melatonin 3 mg at night, mirtazapine 15 mg at night, Zoloft 50 mg daily, trazodone 50 mg at night p.r.n. for sleep, also olanzapine 2.5 mg q. 2 hours p.r.n. for psychosis. LABORATORY DATA: The patient's lab reviewed. ASSESSMENT: 1. Major neurocognitive disorder, most likely Alzheimer's with the depression and delusions. 2. Generalized anxiety disorder. 3. Lewy body disease. PLAN: Continue with the current treatment. LENGTH OF STAY: 7 days. STEVE FULTON MD DR: RICKIE/cristina JOB#: [id number] / [id number] COURT
[2020-12-10 01:22] LABS: FECAL OB PT POSITIVE (NEG)
[2020-12-10 06:45] VITALS: BP 147/79
[2020-12-10] MEDS: FLUTICASONE 50MCG/NASAL SPRAY 16GM BOTTLE. NS SCH (09:00)
[2020-12-10] MEDS: APIXABAN 2.5 MG TABLET PO SCH ×2 (09:56→19:41)
[2020-12-10] MEDS: RIVASTIGMINE 13.3MG PATCH. TD SCH (09:56)
[2020-12-10] MEDS: ALLOPURINOL 100 MG TABLET. PO SCH (09:56)
[2020-12-10] MEDS: FAMOTIDINE 20 MG TABLET PO SCH (09:57)
[2020-12-10] MEDS: FERROUS SULFATE 325 MG TABLET. PO SCH (09:57)
[2020-12-10] MEDS: TAMSULOSIN 0.4 MG CAP.ER.24H. PO SCH (09:57)
[2020-12-10] MEDS: ASCORBIC ACID 500 MG TABLET PO SCH (09:57)
[2020-12-10] MEDS: MULTIVITAMIN with MINERAL TABLET. PO SCH (09:57)
[2020-12-10] MEDS: rOPINIRole 0.5 MG TABLET. PO SCH ×3 (09:57→19:40)
[2020-12-10] MEDS: SERTRALINE 50 MG TABLET. PO SCH (09:57)
[2020-12-10] MEDS: CETIRIZINE HCL 10 MG TABLET PO SCH (09:58)
[2020-12-10] MEDS: CHOLECALCIFEROL (VITAMIN D3) 1,000 UNIT TABLET PO SCH (09:58)
[2020-12-10] MEDS: FINASTERIDE 5 MG TABLET. PO SCH (09:58)
[2020-12-10] MEDS: METOPROLOL TART IMMED RELEASE 25 MG TABLET. PO SCH ×2 (09:58→19:42)
[2020-12-10] MEDS: DOCUSATE 100 MG/10 ML SOLUTION. PO SCH (09:58)
[2020-12-10] MEDS: amLODIPine BESYLATE 5 MG TABLET PO SCH (09:58)
[2020-12-10 15:11] VITALS: BP 127/72
--- NOTE | 2020-12-10 16:32 | TX PLAN ---
Interdisciplinary Tx Plan Admission Information Nov 16, 2020 at 09:45 Legal Status (on Admission): Voluntary DPOA/Guardian Name: Pennie Galeas Contact Verified Code Status: DNR Allergies: Coded Allergies: acetaminophen (Verified Allergy, Unknown, 11/14/20) fentanyl (Verified Allergy, Unknown, 11/14/20) metoclopramide (Verified Allergy, Unknown, 11/14/20) oxycodone (Verified Allergy, Unknown, 11/14/20) ropinirole (Verified Allergy, Unknown, 11/14/20) Diagnoses Primary Diagnosis: Major Neurocognitive D/O, vascular Alzheimers with delusions, depression and BD. Reasons for Admission: Agitated, Sig. Change Sleep, Hallucinations, Confusion/ Disoriented, Other Problem in Patient's Words: Increasing behaviors that are not manageable at home. Additional Admission Comments: According to the intake, pt is having visual hallucinations (seeing faces), agitated, insomnia, up in the middle of the night (leaving sink on or the fridge open), attempting to leave home at times. Problems Active Problems: Visual hallucinations, agitated, poor sleep restless, combative Inactive Problems: medication compliance Pt Strengths/Limitations Ability for [place]: Poor Cognitive Functioning/Ability: Poor Communication Skills/Ability: Fair Financial Resources: Fair Insight/Judgement: Poor Intellectual Ability: Fair Physical Health: Poor Social Skills: Poor Stability in Family: Excellent Stability in School/Work: Poor Verbal Skills: Fair Discharge Criteria Discharge Criteria: No need for close observ., Adequate arrangements @DC, Improved behavior, Improved mood/thought Preliminary Discharge Plan Preliminary DC Plan: Placement Needed Special Precautions Fall Risk: Moderate Initial D/C Plan Pt is not able to return home; referrals for placement will be needed. Identified Discharge Needs: Referrals for Memory Care Currently Utilized Resources Currently Utilized Resources/P: Primary Care Physician Referrals Community Resources: Family attempting to get [facility] services Identified Problems/Hx/Goals Objectives/Short-Term Goals Short Term Goals: Dec. Hallucination/Delus, Dec. Outbursts, Medication Stabilization Short Term Goals in Patient's: N/A Interventions/Frequency Staff Interventions/Frequency&: Psychiatrist to assess pt at least 3x per week for medication management Social Work to assess pt at least 2x per week to identify barriers to care and final discharge plans/goals. Nursing to assess medication effects, behavior management and completion of 15 minute checks daily. Encourage participation in group activities (if applicable) or 1:1 engagement based of Activity Dept goals. 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 Education: Pt graduated high school from [place] and attended college at [employer] with a B.S. in Business and minor in Finance. Community Follow-up Primary Care Physician Community Provider/Family Inpu: Getting to be too much for pt to care for at home. Treatment Plan Explained Patient/Tube Blower had this treatment plan explained to him/her as indicated by the signature below and has been given the opportunity to ask questions and make suggestions: Date: Patient/Tube Blower Signature: Status Update Update Treatment team update: Pt is eating 75% of meals and sleeping on average 6.5 hours per night. Pt is pleasant and cooperative; very interactive with his peers and staff. Pt was found napping in another pt's bed over the weekend; however, was redirectable. Pt wanders the halls but is compliant with all medication, cares and staff direction. Pt will plan to discharge to [facility] on Tuesday 12/12 at 10:30. SW will continue to work with pt family to finalize all discharge plans. ESTELA REDD Dec 10, 2020 16:32
[2020-12-10] MEDS: traZODone 50 MG TABLET. PO PRN (19:41)
[2020-12-10] MEDS: MIRTAZAPINE 15 MG TABLET PO SCH (19:41)
[2020-12-10] MEDS: MELATONIN 3 MG TABLET PO SCH (19:42)
--- NOTE | 2020-12-10 23:51 | PN ---
DATE: 12/10/2020 SUBJECTIVE: The patient was seen today, met with the staff, chart reviewed and also covering for Dr. Campbell. The patient continues to be anxious, confused, forgetful, but overall the patient's behavior has improved. OBSERVATION: VITAL SIGNS: The patient refuses vital signs. GENERAL: The patient's total sleep time was 5 hours last night. The patient is not having any physical complaints. MEDICATIONS: The patient's current medications include Exelon patch 13.3 mg daily, mirtazapine 15 mg at night, Zoloft 50 mg daily and melatonin 3 mg at night. The patient is also on trazodone 50 mg at night p.r.n. for sleep and also olanzapine 2.5 mg q. 2 hours p.r.n. for psychosis. LABORATORY DATA: Lab reviewed. No significant change from prior findings. ASSESSMENT: 1. Major neurocognitive disorder, most likely Alzheimer's with the depression and delusions. 2. Generalized anxiety disorder. 3. Lewy body disease. PLAN: Continue with the treatment. LENGTH OF STAY: 7 days. The patient is planned for discharge if he continues to show improvement by middle of this week. STEVE FULTON MD DR: RICKIE/cristina JOB#: [id number] / [id number]
[2020-12-11 05:53] VITALS: BP 160/80
[2020-12-11] MEDS: rOPINIRole 0.5 MG TABLET. PO SCH ×3 (07:47→19:37)
[2020-12-11] MEDS: ASCORBIC ACID 500 MG TABLET PO SCH (07:47)
[2020-12-11] MEDS: DOCUSATE 100 MG/10 ML SOLUTION. PO SCH (07:47)
[2020-12-11] MEDS: FAMOTIDINE 20 MG TABLET PO SCH (07:48)
[2020-12-11] MEDS: MULTIVITAMIN with MINERAL TABLET. PO SCH (07:48)
[2020-12-11] MEDS: FERROUS SULFATE 325 MG TABLET. PO SCH (07:48)
[2020-12-11] MEDS: FINASTERIDE 5 MG TABLET. PO SCH (07:48)
[2020-12-11] MEDS: amLODIPine BESYLATE 5 MG TABLET PO SCH (07:48)
[2020-12-11] MEDS: ALLOPURINOL 100 MG TABLET. PO SCH (07:49)
[2020-12-11] MEDS: TAMSULOSIN 0.4 MG CAP.ER.24H. PO SCH (07:49)
[2020-12-11] MEDS: METOPROLOL TART IMMED RELEASE 25 MG TABLET. PO SCH ×2 (07:49→19:42)
[2020-12-11] MEDS: CETIRIZINE HCL 10 MG TABLET PO SCH (07:49)
[2020-12-11] MEDS: RIVASTIGMINE 13.3MG PATCH. TD SCH (07:49)
[2020-12-11] MEDS: APIXABAN 2.5 MG TABLET PO SCH ×2 (07:49→19:37)
[2020-12-11] MEDS: SERTRALINE 50 MG TABLET. PO SCH (07:49)
[2020-12-11] MEDS: CHOLECALCIFEROL (VITAMIN D3) 1,000 UNIT TABLET PO SCH (07:49)
[2020-12-11] MEDS: FLUTICASONE 50MCG/NASAL SPRAY 16GM BOTTLE. NS SCH (07:50)
[2020-12-11 16:06] VITALS: BP 91/55
[2020-12-11] MEDS: traZODone 50 MG TABLET. PO PRN (19:37)
[2020-12-11] MEDS: MELATONIN 3 MG TABLET PO SCH (19:37)
[2020-12-11] MEDS: MIRTAZAPINE 15 MG TABLET PO SCH (19:37)
[2020-12-11] MEDS ORDERED: ACET325T21 PO (21:23)
[2020-12-11] MEDS ORDERED: APIX2.5T PO (21:23)
[2020-12-11] MEDS ORDERED: ASCO500C PO (21:24)
[2020-12-11] MEDS ORDERED: CETI10TA16 PO (21:25)
[2020-12-11] MEDS ORDERED: DOCU100C28 PO (21:33)
[2020-12-11] MEDS ORDERED: CHOL-5 PO (21:33)
[2020-12-11] MEDS ORDERED: FERR325T14 PO (21:34)
[2020-12-11] MEDS ORDERED: MAG-115 PO (21:36)
[2020-12-11] MEDS ORDERED: MAGN24003 PO (21:36)
[2020-12-11] MEDS ORDERED: FLUT9.9S NS (21:36)
[2020-12-11] MEDS ORDERED: MELA3TAB4 PO ×2 (21:37)
[2020-12-11] MEDS ORDERED: MIRT15TA3 PO (21:38)
[2020-12-11] MEDS ORDERED: METH28OI2 TP (21:38)
[2020-12-11] MEDS ORDERED: OLAN5TAB7 PO (21:39)
[2020-12-11] MEDS ORDERED: AMLO-186 PO (21:40)
[2020-12-11] MEDS ORDERED: RIVA1PAT5 TD (21:40)
[2020-12-11] MEDS ORDERED: SERT50TA PO (21:40)
[2020-12-11] MEDS ORDERED: TRAZ-120 PO (21:41)
[2020-12-11] MEDS ORDERED: ROPI0.5T4 PO (21:41)
[2020-12-12 05:55] VITALS: BP 99/62
[2020-12-12] MEDS: RIVASTIGMINE 13.3MG PATCH. TD SCH (07:25)
[2020-12-12] MEDS: SERTRALINE 50 MG TABLET. PO SCH (07:25)
[2020-12-12] MEDS: TAMSULOSIN 0.4 MG CAP.ER.24H. PO SCH (07:25)
[2020-12-12] MEDS: CHOLECALCIFEROL (VITAMIN D3) 1,000 UNIT TABLET PO SCH (07:25)
[2020-12-12] MEDS: CETIRIZINE HCL 10 MG TABLET PO SCH (07:26)
[2020-12-12] MEDS: APIXABAN 2.5 MG TABLET PO SCH (07:26)
[2020-12-12] MEDS: amLODIPine BESYLATE 5 MG TABLET PO SCH (07:26)
[2020-12-12] MEDS: rOPINIRole 0.5 MG TABLET. PO SCH (07:26)
[2020-12-12] MEDS: FLUTICASONE 50MCG/NASAL SPRAY 16GM BOTTLE. NS SCH (07:27)
[2020-12-12] MEDS: ASCORBIC ACID 500 MG TABLET PO SCH (07:27)
[2020-12-12] MEDS: MULTIVITAMIN with MINERAL TABLET. PO SCH (07:27)
[2020-12-12] MEDS: FERROUS SULFATE 325 MG TABLET. PO SCH (07:27)
[2020-12-12] MEDS: DOCUSATE 100 MG/10 ML SOLUTION. PO SCH (07:27)
[2020-12-12] MEDS: FAMOTIDINE 20 MG TABLET PO SCH (07:27)
[2020-12-12] MEDS: ALLOPURINOL 100 MG TABLET. PO SCH (07:27)
[2020-12-12 07:32] VITALS: BP 99/62
[2020-12-12] MEDS: FINASTERIDE 5 MG TABLET. PO SCH (07:32)
[2020-12-12] MEDS: METOPROLOL TART IMMED RELEASE 25 MG TABLET. PO SCH (07:32)
--- NOTE | 2020-12-12 09:14 | PN ---
DATE: 12/11/2020 SUBJECTIVE: The patient was seen today, met with the staff, chart reviewed and also covering for Dr. Campbell. The patient continued to exhibit increased anxiety, also confusion and forgetful. OBSERVATION: VITAL SIGNS: Temperature 97.2, blood pressure 160/80, pulse 101, respirations 20, O2 sat 97%. Slept about 6 hours last night. CURRENT MEDICATIONS: The patient's current medications include Exelon patch 13.3 mg daily, melatonin 3 mg at night and also p.r.n. at bedtime, mirtazapine 15 mg at night, Zoloft 50 mg at night and trazodone 50 mg at night p.r.n. for sleep. LABORATORY DATA: The patient's lab reviewed. ASSESSMENT: 1. Major neurocognitive disorder, most likely Alzheimer's with the depression and delusions. 2. Generalized anxiety disorder. 3. Lewy body disease. PLAN: To continue with treatment. LENGTH OF STAY: 7 days. STEVE FULTON MD DR: RICKIE/cristina JOB#: [id number] / [id number]
--- NOTE | 2020-12-12 19:09 | DS ---
DATE OF DISCHARGE: 12/12/2020 FINAL DIAGNOSES: AXIS I: 1. Major neurocognitive disorder, multifactorial, possibly vascular, Parkinson's, Lewy body and Alzheimer's with delusions, depression and behavioral disturbances. 2. Anxiety disorder, unspecified. 3. Impulse control disorder, unspecified. REASON FOR ADMISSION: This 85-year-old male who was referred by his primary care physician and he was living at home with his . He has shown decline in overall functioning including his cognition and also having visual hallucinations, especially seeing faces. He became increasingly agitated and marked insomnia and attempting to leave home several times. The patient's behavior deemed dangerous living at home and his is not able to control his behaviors. HISTORY OF PRESENT ILLNESS: He has a long history of progressive dementia and also Parkinson's and Lewy body disease, having visual hallucinations, increased agitation, marked insomnia and elopement risk. The patient did not present with any evidence of bipolar disorder. No evidence of any suicidal or homicidal thoughts. HOSPITAL COURSE: The patient had a physical exam, routine lab work and also seen by the primary care. The patient was treated with Exelon patch 13.3 mg daily, melatonin 3 mg at night, mirtazapine 15 mg at night, Zoloft 50 mg at night and trazodone 50 mg at night p.r.n. for sleep. The patient did not have any side effects. The patient did participate in some of the activities. The patient did not have any falls. AFTERCARE PLAN: The patient to be discharged to return to [facility] and he will continue with the medications and also to be seen by Psychiatry since the primary care doctor. The patient at the time of discharge, he was not expressing any suicidal or homicidal thoughts. STEVE FULTON MD DR: RICKIE/cristina JOB#: [id number] / [id number]
== END 2020-12-12 10:28 | DRG 56 ==
LOC: GEROPSY 09:45
PROVIDERS: ADMIT Psychiatry & Neurology Psychiatry; ATTEND Psychiatry & Neurology Psychiatry
DX: G20 Parkinson's disease (principal); F01.50 Vascular dementia, unspecified severity, without behavioral disturbance, psychotic disturbance, mood disturbance, and anxiety; N17.0 Acute kidney failure with tubular necrosis; N18.30 Chronic kidney disease, stage 3 unspecified; E87.0 Hyperosmolality and hypernatremia; F32.9 Major depressive disorder, single episode, unspecified; Z66 Do not resuscitate; G30.9 Alzheimer's disease, unspecified; D64.9 Anemia, unspecified; E86.0 Dehydration; F02.80 Dementia in other diseases classified elsewhere, unspecified severity, without behavioral disturbance, psychotic disturbance, mood disturbance, and anxiety; F63.9 Impulse disorder, unspecified; F41.1 Generalized anxiety disorder; G47.00 Insomnia, unspecified; I12.9 Hypertensive chronic kidney disease with stage 1 through stage 4 chronic kidney disease, or unspecified chronic kidney disease; I48.91 Unspecified atrial fibrillation; N40.0 Benign prostatic hyperplasia without lower urinary tract symptoms; Z79.899 Other long term (current) drug therapy; Z85.038 Personal history of other malignant neoplasm of large intestine; Z86.718 Personal history of other venous thrombosis and embolism
CPT/HCPCS: 36415; 70450; 71045; 80048; 80053; 81001; 82274; 82728; 83540; 83550; 83605; 85025; 85027; 87493; 97110; 97116; 97530; 97535